=== PATIENT | female | born 1975 | race Caucasian/White ===

== ENCOUNTER 2016-07-20 10:30 | Inpatient (IN) | payer OTHER ==
[~2016-07-20] VITALS: Ht 152.4 cm; Wt 67.4 kg
[~2016-07-20 10:30] MED LIST: BUPR-83 PO; LRT5 PO
[2016-07-20 10:58] LABS: HEMATOCRIT 40.9 % (37-47); MEAN CELL VOLUME 91.1 fL (80-100); MEAN CORPUSCULAR HEMOGLOBIN 31.4 pg (25-34); MEAN CORPUSCULAR HGB CONC 34.5 g/dl (32-36); MEAN PLATELET VOLUME 11.7 fL (7.4-10.4); PLATELET COUNT 180 K/uL (130-400); RED BLOOD COUNT 4.49 M/uL (4.2-5.4); WHITE BLOOD COUNT 13.98 K/uL (4.8-10.8)
[2016-07-20 11:13] LABS: PARTIAL THROMBOPLASTIN RATIO 0.9; PROTHROMBIN TIME (PATIENT) 10.7 SECONDS (9.0-12.0)
--- NOTE | 2016-07-20 11:15 | DIAGNOSTIC IMAGING REPORT ---
CHEST ONE VIEW PORTABLE CLINICAL HISTORY: Shoulder pain radiates to neck dyspnea COMPARISON STUDY: No previous studies for comparison. FINDINGS: The bones soft tissues and hemidiaphragms are normal. The cardiomediastinal silhouette is normal. The lungs are clear. The pulmonary vasculature is normal. IMPRESSION: Negative chest. Electronically signed by: Ez Dillard M.D. 07/20/2016 11:14 AM Dictated Date/Time: 07/20/2016 11:10 AM
[2016-07-20 11:23] LABS: BUN/CREATININE RATIO 18.1 (10-20); CALCIUM 8.7 mg/dl (8.5-10.1); CREATININE 0.63 mg/dl (0.60-1.20); POTASSIUM 3.7 mmol/L (3.5-5.1)
[2016-07-20] MEDS ORDERED: MULTTAB58 PO (11:23)
[2016-07-20] MEDS ORDERED: IBUP1CAP9 PO (11:23)
[2016-07-20] MEDS ORDERED: ALPR-411 PO (11:23)
[2016-07-20 11:33] LABS: ALB/GLOB RATIO 1.4 (0.9-2); CKMB/CK RATIO 6.8 (0-3.0)
[2016-07-20] MEDS ORDERED: ASPIRIN 81 MG CHEW PO STA (12:06)
--- NOTE | 2016-07-20 12:13 | EMERGENCY ROOM VISIT NOTE ---
History Report prepared by Jose: Sneha Adair Under the Supervision of: Dr. Becca Boss, D.O. First contact with patient: 11:59 Chief Complaint: SHOULDER PAIN Stated Complaint: LF SHOULDER PAIN History of Present Illness The patient is a 41 year old female who presents to the Emergency Room with complaints of resolved left shoulder pain that began this morning. She currently rates her discomfort as a 2/10 in severity. The patient states that she was at work today walking around when she developed sharp left shoulder pain that radiated down her left arm into her hand and up into her left neck and left jaw. She states that she became very hot, diaphoretic, and nauseous. The patient denies any vomiting. She states that she rested for awhile after the symptoms began, but denies any relief. The patient denies any increased pain with breathing. She denies any other modifying factors. The patient denies taking anything for her discomfort. She notes slight shortness of breath , but attributes that to her anxiety. The patient states that her left arm was shaking and had difficulty raising it during the episode of pain. She notes a family history of heart disease, noting that her grandma had an CO at 75. The patient denies any personal history of hypertension, heart disease, or diabetes. The patient denies any control use. She states that she is an occasional smoker. The patient states that she shoveled snow yesterday. She notes that she recently had a long travel by car. Source of History: patient Onset: this morning Position: shoulder (left) Symptom Intensity: 2/10 Quality: sharp Timing: resolved Associated Symptoms: + SOB, + diaphoresis, + nausea, No vomiting Review of Systems See HPI for pertinent positives & negatives. A total of 10 systems reviewed and were otherwise negative. Past Medical & Surgical Medical Problems: (1) Chest pain Surgical Problems: (1) S/P cholecystectomy Family History Gallbladder disease Heart disease Social History Smoking Status: Current Some Day Smoker Alcohol Use: occasionally Marital Status: Housing Status: lives with family Occupation Status: employed Current/Historical Medications Scheduled Multiple Vitamin (Multivitamin), 1 TAB PO DAILY Scheduled PRN Alprazolam (Xanax), 1 MG PO DAILY PRN for Anxiety Ibuprofen (Ibuprofen), 3 TAB PO Q8H PRN for Pain Allergies Coded Allergies: No Known Allergies (Unverified , 07/20/16) Physical Exam Vital Signs Date Time Temp Pulse Resp B/P Pulse Ox O2 Delivery O2 Flow Rate FiO2 07/20/16 13:21 96 07/20/16 13:07 76 18 147/89 97 Room Air 07/20/16 10:38 98 Room Air 07/20/16 10:34 36.8 75 18 170/105 100 Room Air Physical Exam GENERAL: The patient is a pleasant, mildly anxious 41 year old female no acute distress. VITALS: Afebrile, hypertensive, normal pulse oximetry on room air. THROAT: No pharyngeal injection, exudates, or tonsillar hypertrophy. Airway is patent. NECK: Supple, nontender, no lymphadenopathy or nuchal rigidity. THORAX : Symmetrical and nontender to palpation without deformity or palpable crepitus. LUNGS : Clear without wheezing, rhonchi, or rales HEART: Regular rate and rhythm without murmur, S3, S4, or rub. ABDOMEN: Soft and nontender without guarding, rigidity, or rebound tenderness. Bowel sounds are present in all 4 quadrants. There are no palpable masses or organomegaly. No CVA tenderness. Femoral pulses are symmetrical EXTREMITIES : Without deformity or point tenderness. There are no palpable cords, edema, or erythema.. NEUROLOGIC: Intact without focal deficits Medical Decision & Procedures ER Provider Diagnostic Interpretation: X-ray results as stated below per interpretation by me and the radiologist: CHEST ONE VIEW PORTABLE CLINICAL HISTORY: Shoulder pain radiates to neck dyspnea COMPARISON STUDY: No previous studies for comparison. FINDINGS: The bones soft tissues and hemidiaphragms are normal. The cardiomediastinal silhouette is normal. The lungs are clear. The pulmonary vasculature is normal. IMPRESSION: Negative chest. Electronically signed by: Ez Dillard M.D. 07/20/2016 11:14 AM Dictated Date/Time: 07/20/2016 11:10 AM Laboratory Results 07/20/16 10:50 07/20/16 10:50 Test 07/20/16 10:50 07/20/16 13:47 Red Blood Count 4.49 M/uL (4.2-5.4) Mean Corpuscular Volume 91.1 fL (80-100) Mean Corpuscular Hemoglobin 31.4 pg (25-34) Mean Corpuscular Hemoglobin Concent 34.5 g/dl (32-36) RDW Standard Deviation 44.1 fL (36.4-46.3) RDW Coefficient of Variation 13.2 % (11.5-14.5) Mean Platelet Volume 11.7 fL (7.4-10.4) Prothrombin Time 10.7 SECONDS (9.0-12.0) Prothromb Time International Ratio 1.0 (0.9-1.1) D-Dimer < 190 ug/L FEU (0-500) Anion Gap 7.0 mmol/L (3-11) Est Creatinine Clear Calc Drug Dose 99.6 ml/min Estimated GFR () 129.1 Estimated GFR (Non- 111.4 BUN/Creatinine Ratio 18.1 (10-20) Calcium Level 8.7 mg/dl (8.5-10.1) Total Bilirubin 0.2 mg/dl (0.2-1) Aspartate Amino Transf (AST/SGOT) 27 U/L (15-37) Alanine Aminotransferase (ALT/SGPT) 29 U/L (12-78) Alkaline Phosphatase 56 U/L (45-117) Total Creatine Kinase 143 U/L (26-192) Total Protein 7.1 gm/dl (6.4-8.2) Albumin 4.1 gm/dl (3.4-5.0) Globulin 3.0 gm/dl (2.5-4.0) Albumin/Globulin Ratio 1.4 (0.9-2) Creatine Kinase MB Ratio (0-3.0) Laboratory studies as stated above per my review. Medications Administered Medications (Trade) Dose Ordered Sig/Sneha Route Start Time Stop Time Status Last Admin Dose Admin Aspirin (Aspirin Chew) 324 mg NOW STAT PO 07/20/16 12:06 07/20/16 12:07 DC 07/20/16 12:18 324 MG Nitroglycerin (Nitroglycerin 2% Oint) 1 inch NOW STAT EXT 07/20/16 12:35 07/20/16 12:36 DC 07/20/16 13:07 1 INCH ECG Indication: back/shoulder pain Rate (beats per minute): 77 Rhythm: normal sinus Findings: no ectopy, other (no acute ST T wave changes, no arrhythmia) ED Course 1201: Past medical records reviewed. The patient was evaluated in room B4B. A complete history and physical examination was performed. On examination she was asymptomatic. Her symptoms however somewhat concerning for acute coronary syndrome. She was medicated with 4 baby aspirin. She was maintained on telemetry and hemodynamic monitoring. Her hypertension improved She underwent the above diagnostic workup. Portable chest x-ray did not show any acute findings. No evidence of pneumonia or pneumothorax. CBC shows a mild leukocytosis with a white count of 13.9. Chem profile is within normal limits. Her total CK enzyme is 143 with a normal MB, troponin however is elevated to 0.866 suggestive of ischemia. PT and PTT are normal. D-dimer is less than 190 and not suggestive of pulmonary embolus. After reviewing her laboratory studies an inch of Nitropaste was placed. This is a 31-year-old woman who presents after an hour-long episode of left arm , and neck pain somewhat suggestive of acute coronary syndrome. Her troponin is elevated suggestive of ischemia. In light of this the patient is being admitted. I discussed her care with Dr. Munoz. I refer you to her dictation for further treatment plan. Patient and her are comfortable with this treatment plan. 1206: Ordered Aspirin 324 mg PO. 1235: Ordered Nitroglycerin 1 inch EXT. 1232: I reevaluated the patient and she is resting comfortably. I discussed the exam findings with her and I discussed the treatment plan. She verbalized complete understanding and agreement. She will be evaluated for further treatment. 1238: I discussed the patients case with TIM Davis. She is going to evaluate the patient for further treatment. 1303: I reevaluated the patient and she is resting comfortably. I discussed the lab findings with her. Medical Decision EMR, nurse's notes, diagnostic studies personally reviewed Differential diagnosis-see above The chart was completed utilizing [employer] Speech Voice Recognition Software. Grammatical errors, random word insertions, pronoun errors, and incomplete sentences are an occasional consequence of this system due to software limitations, ambient noise, and hardware issues. Any formal questions or concerns about the content, text, or information contained within the body of this dictation should be directly addressed to the physician for clarification. Consults Time Called: 1233 Consulting Physician: TIM Davis Returned Call: 1238 I discussed the patients case with TIM Davis. She is going to evaluate the patient for further treatment. Impression Primary Impression: Acute coronary syndrome Scribe Attestation The scribe's documentation has been prepared under my direction and personally reviewed by me in its entirety. I confirm that the note above accurately reflects all work, treatment, procedures, and medical decision making performed by me. Departure Information Dispostion Being Evaluated By Hospitalist Referrals Leonel Morgan M.D. (PCP)
[2016-07-20] MEDS ORDERED: NITROGLYCERIN OINT 2% 1GM PACKET EXT STA (12:35)
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
[2016-07-20] MEDS ORDERED: NITROGLYCERIN 0.4 MG SL PER TAB CHARGE SL PRN (14:00)
[2016-07-20] MEDS: ALPRAZOLAM 0.5 MG TAB PO PRN (15:27)
[2016-07-20 16:05] VITALS: BP 135/93; PULSE 79; TEMP 36.8; Ht 152.4 cm; Wt 67.4 kg
[2016-07-20] MEDS ORDERED: ENOXAPARIN 30 MG/0.3 ML SYR SQ ONE (17:15)
[2016-07-20] MEDS: ACETAMINOPHEN 325 MG TAB PO PRN (19:16)
[2016-07-20] MEDS ORDERED: HEPARIN IV BOLUS 4,000 UNIT in SYRINGE 0 ML IV ONE (19:30)
[2016-07-20] MEDS ORDERED: HEPARIN 25,000 UNIT/500ML D5W 500 ML IV PRN (19:30)
[2016-07-20 19:34] VITALS: BP 157/96; PULSE 82; TEMP 36.8; O2SAT 98
[2016-07-20] MEDS: MoRPHine SULFATE 2 MG/ML CARP IV PRN (21:59)
[2016-07-21] VITALS (12 sets, daily range): BP systolic 124–159; BP diastolic 72–107; PULSE 66–95; TEMP 36.4–36.9; O2SAT 95–98
[2016-07-21 02:54] LABS: PARTIAL THROMBOPLASTIN RATIO 1.8
[2016-07-21] MEDS: MoRPHine SULFATE 2 MG/ML CARP IV PRN ×2 (02:58→09:04)
[2016-07-21 08:18] LABS: PARTIAL THROMBOPLASTIN RATIO 1.7
[2016-07-21] MEDS: ASPIRIN 81 MG ECTAB PO SCH ×2 (09:02→09:52)
--- NOTE | 2016-07-21 09:03 | Progress Note ---
Subjective Date of Service: Jul 21, 2016. Subjective Pt evaluation today including: conversation w/ patient, conversation w/ family , physical exam, lab review, review of studies, review of inpatient medication list Patient still c/o left shoulder discomfort, better than yesterday but still persistent. Not related to any particular position. No sob, no diaphoresis, no nausea. Tolerated food last night. Problem List Medical Problems: (1) Acute coronary syndrome Status: Acute Review of Systems All Other Systems: Reviewed and Negative Medications Acetaminophen 650 mg 650 mg Q4H PRN PO Last administered on 07/20/16 19:16; Admin Dose 650 MG; Start 07/20/16 at 18:45; Stop 08/19/16 at 18:44 Alprazolam (Xanax Tab) 1 mg DAILY PRN PO Last administered on 07/20/16 15:27; Admin Dose 1 MG; Start 07/20/16 at 14:00; Stop 08/19/16 at 13:59 Aspirin (Ecotrin Tab) 81 mg QAM PO Last administered on 07/21/16 09:02; Admin Dose 81 MG; Start 07/21/16 at 09:00; Stop 08/20/16 at 08:59 Heparin Sodium/ Dextrose (Heparin 25,000 Unit/500ml D5W) 500 ml @ 19 mls/hr Q24H PRN IV Last administered on 07/20/16 19:54; Admin Dose 19 MLS/HR; Start at 19:30; Stop 08/19/16 at 19:29 Morphine Sulfate (MoRPHine SULFATE INJ) 2 mg Q4 PRN IV Last administered on 09:04; Admin Dose 2 MG; Start 07/20/16 at 14:00; Stop 08/03/16 at 13:59 Nitroglycerin (Nitrostat Tab) 0.4 mg UD PRN SL; Start 07/20/16 at 14:00; Stop 08/19/16 at 13:59 Objective Vital Signs Date Time Temp Pulse Resp B/P Pulse Ox O2 Delivery O2 Flow Rate FiO2 07/21/16 08:44 Room Air 07/21/16 07:53 36.8 81 18 142/94 96 Room Air 07/21/16 04:24 36.8 82 18 131/72 95 Room Air 07/21/16 04:00 Room Air 07/21/16 00:11 36.8 80 18 131/74 96 Room Air 07/20/16 23:59 Room Air 07/20/16 20:00 Room Air 07/20/16 19:34 36.8 82 18 157/96 98 Room Air 07/20/16 17:10 88 18 144/97 98 07/20/16 16:05 36.8 79 18 135/93 Room Air 07/20/16 15:28 78 18 147/100 97 Room Air 07/20/16 13:21 96 07/20/16 13:07 76 18 147/89 97 Room Air 07/20/16 10:38 98 Room Air 07/20/16 10:34 36.8 75 18 170/105 100 Room Air Physical Exam Comments: nad, aox3, coherent and fluent speech eomi, perrl, anicteric s1 s2 rrr, no murmurs appreciated ctab no w/r/r abd soft , nt/nd +BS no cva tend no LE edema cn 2-12 grossly intact without facial drooping Laboratory Results Last 24 Hours Test 07/20/16 10:50 07/20/16 13:47 07/20/16 15:01 07/20/16 17:45 White Blood Count 13.98 K/uL Red Blood Count 4.49 M/uL Hemoglobin 14.1 g/dL Hematocrit 40.9 % Mean Corpuscular Volume 91.1 fL Mean Corpuscular Hemoglobin 31.4 pg Mean Corpuscular Hemoglobin Concent 34.5 g/dl RDW Standard Deviation 44.1 fL RDW Coefficient of Variation 13.2 % Platelet Count 180 K/uL Mean Platelet Volume 11.7 fL Prothrombin Time 10.7 SECONDS Prothromb Time International Ratio 1.0 Activated Partial Thromboplast Time 24.3 SECONDS Partial Thromboplastin Ratio 0.9 D-Dimer < 190 ug/L FEU Sodium Level 140 mmol/L Potassium Level 3.7 mmol/L Chloride Level 107 mmol/L Carbon Dioxide Level 26 mmol/L Anion Gap 7.0 mmol/L Blood Urea Nitrogen 11 mg/dl Creatinine 0.63 mg/dl Est Creatinine Clear Calc Drug Dose 99.6 ml/min Estimated GFR () 129.1 Estimated GFR (Non- 111.4 BUN/Creatinine Ratio 18.1 Random Glucose 101 mg/dl Calcium Level 8.7 mg/dl Total Bilirubin 0.2 mg/dl Aspartate Amino Transf (AST/SGOT) 27 U/L Alanine Aminotransferase (ALT/SGPT) 29 U/L Alkaline Phosphatase 56 U/L Total Creatine Kinase 143 U/L Creatine Kinase MB 9.7 ng/ml 36.7 ng/ml Creatine Kinase MB Ratio 6.8 Troponin I 0.866 ng/ml 7.220 ng/ml Total Protein 7.1 gm/dl Albumin 4.1 gm/dl Globulin 3.0 gm/dl Albumin/Globulin Ratio 1.4 Test 07/20/16 19:21 07/21/16 02:14 07/21/16 07:53 Activated Partial Thromboplast Time 26.5 SECONDS 47.4 SECONDS 43.9 SECONDS Partial Thromboplastin Ratio 1.0 1.8 1.7 Troponin I 5.760 ng/ml Assessment and Plan 1. NSTEMI - troponin did peak at 7.2, now down to 5 - she remains on heparin gtt - cardio will bring her to laboratory tech this morning - she remains npo - echo pending - will check UDS for completeness, though she denies any h/o illicit substance use - check tsh and a1c as well to screen - lipid panel pending 2. Elevated BP - now improved - may have been stress related - will continue to monitor - if persistently >140-150, will treat 3. Smoking - cessation strongly advised - verbalized understanding 4. dvt ppx with lovenox
[2016-07-21 09:19] LABS: CHOLESTEROL/HDL RATIO 3.1
[2016-07-21] MEDS ORDERED: ENOXAPARIN 30 MG/0.3 ML SYR SQ SCH (11:00)
[2016-07-21] MEDS ORDERED: NiCARDipine HCL INJ 2.5 MG/ML 10 ML AMP ONE (11:45)
[2016-07-21] MEDS ORDERED: HEPARIN SOD (PORCINE) 1000 UNIT/ML 10 ML VIAL ONE (11:46)
[2016-07-21] MEDS ORDERED: NITROGLYCERIN/D5W 100MCG/ML 20ML SYR ONE (11:47)
[2016-07-21] MEDS ORDERED: FENTANYL CITRATE INJ 50 MCG/1 ML 2 ML VIAL ONE (11:48)
[2016-07-21] MEDS ORDERED: MIDAZOLAM HCL 1 MG/ML 2ML VIAL ONE (11:48)
[2016-07-21 12:43] LABS: BENZODIAZEPINE, URINE POS (NEG); COCAINE,URINE NEG (NEG); PHENCYCLIDINE, URINE NEG (NEG)
[2016-07-21] MEDS ORDERED: CLOPIDOGREL BISULFATE 300 MG TAB PO ONE (12:47)
--- NOTE | 2016-07-21 12:55 | Procedure Note ---
Pre-Mod Sedation Assessment General Date of Moderate Sedation: Jul 21, 2016. Vital Signs: Vital Signs Past 12 Hours Date Time Temp Pulse Resp B/P Pulse Ox O2 Delivery O2 Flow Rate FiO2 07/21/16 12:46 80 18 118/82 95 Room Air 07/21/16 12:31 80 18 124/91 95 Room Air 07/21/16 11:28 36.8 78 20 139/98 96 Room Air 07/21/16 08:44 Room Air 07/21/16 07:53 36.8 81 18 142/94 96 Room Air 07/21/16 04:24 36.8 82 18 131/72 95 Room Air 07/21/16 04:00 Room Air Review Cardiovascular: regular rate, rhythm, no edema Abdomen: normal bowel sounds, non tender, soft Lungs: lungs clear, normal breath sounds Pre-Sedation Airway Assessment Oral Cavity: WNL Able to Visualize Vocal Cords: Yes Short Thick Neck: No Hx of Sleep Apnea: No Smoking Status: Current Every Day Smoker Mallampati Classification: Class II ASA Classification: Class II Procedure Planning Contraindications-for Mod Sed: None Yes Notes The planned sedation has been discussed with the patient and consent obtained. I have identified the patient, determined the appropriateness of sedation and have assessed the patient immediately prior to the procedure. All medicine(s) and interventions are by my order.
--- NOTE | 2016-07-21 12:56 | Procedure Note ---
Post-Mod Sedation Assessment General Date of Moderate Sedation Jul 21, 2016. Vital Signs: Vital Signs Past 12 Hours Date Time Temp Pulse Resp B/P Pulse Ox O2 Delivery O2 Flow Rate FiO2 07/21/16 12:46 80 18 118/82 95 Room Air 07/21/16 12:31 80 18 124/91 95 Room Air 07/21/16 11:28 36.8 78 20 139/98 96 Room Air 07/21/16 08:44 Room Air 07/21/16 07:53 36.8 81 18 142/94 96 Room Air 07/21/16 04:24 36.8 82 18 131/72 95 Room Air 07/21/16 04:00 Room Air Review - Discharge Criteria Vital Signs Stable: Yes Alert/Oriented/Conversant: Yes Returned to Baseline Mental St: Yes Nausea Absent/Minimal: Yes Pain/Discomfort/Absent/Minimal: Yes Normal/Baseline Respirations: Yes Active Bleeding?: No Pt Received D/C Instructions: N/A Prescriptions Given: None Specific Proced. D/C Criteria Distal Pulses Present (Cardiac: Yes Groin site assessed-Card Cath: N/A Voided Prior To Discharge: N/A Discharged Patients Adult Escort/Transportation: Yes
[2016-07-21] MEDS ORDERED: ACETAMINOPHEN 325 MG TAB PO PRN (13:00)
[2016-07-21] MEDS: SODIUM CHLORIDE 0.9% 1000ML 1,000 ML IV SCH ×2 (13:39→22:52)
--- NOTE | 2016-07-21 14:56 | ECHOCARDIOGRAM REPORT ---
*NOTICE TO RECEIVING CONSTITUTION PARTY AGENCY This information is strictly Confidential and protected under [place] law. [place] law prohibits you from making any further disclosure of this information unless further disclosure is expressly permitted by the written consent of the person to whom it pertains or is authorized by law. A general authorization for the release of medical or other information is not sufficient for this purpose. Hospital accepts no responsibility if the information is made available to any other person, INCLUDING THE PATIENT. Interpretation Summary * Name: DENNY HANDLEY Study Date: 07/21/2016 06:27 AM BP: 142/94 mmHg * Patient Location: C.2E\S\E202\S\1 HR: 74 * : 1975 (M/d/yyyy) Gender: Female Height: 60 in * Age: 41 yrs Ethnicity: CA Weight: 145 lb * Ordering Physician: Lynn Peña * Referring Physician: Self, Referred * Performed By: Judi Beatty [facility] * * Reason For Study: ELEVATED TROPONIN / CHEST PAIN / SHOULDER PAIN * BSA: 1.6 m2 * -- Conclusions -- * There is borderline concentric left ventricular hypertrophy. * Left ventricular systolic function is normal. * There are regional wall motion abnormalities as specified. * Mild aortic root dilatation. Procedure Details * A complete two-dimensional transthoracic echocardiogram was performed (2D, M-mode, Doppler and color flow Doppler). Left Ventricle * The left ventricle is normal in size. * There is borderline concentric left ventricular hypertrophy. * Ejection Fraction = 55-60%. * Left ventricular systolic function is normal. * There are regional wall motion abnormalities as specified. * Portions of the apex are moderately hypokinetic Right Ventricle * The right ventricle is normal in size and function. Atria * The left atrial size is normal. * Right atrial size is normal. Mitral Valve * The mitral valve anatomy is normal. * There is trace mitral regurgitation. Tricuspid Valve * The tricuspid valve is not well visualized, but is grossly normal. * There is trace tricuspid regurgitation. Aortic Valve * The aortic valve is normal in structure and function. * No hemodynamically significant valvular aortic stenosis. * There is no significant aortic regurgitation. Great Vessels * Mild aortic root dilatation. Pericardium/Pleural * There is no pericardial effusion. MMode 2D Measurements and Calculations IVSd 1.3 cm IVSs 1.5 cm LVIDd 4.6 cm LVIDs 3.1 cm LVPWd 1.2 cm LVPWs 1.6 cm IVS/LVPW 1.1 FS 32.6 % EDV(Teich) 97.6 ml ESV(Teich) 38.0 ml EF(Teich) 61.0 % EDV(cubed) 97.6 ml ESV(cubed) 29.9 ml EF(cubed) 69.4 % % IVS thick 18.8 % % LVPW thick 34.1 % LV mass(C)d 210.8 grams LV mass(C)dI 129.5 grams/m\S\2 LV mass(C)s 172.8 grams LV mass(C)sI 106.1 grams/m\S\2 SV(Teich) 59.5 ml SI(Teich) 36.6 ml/m\S\2 SV(cubed) 67.7 ml SI(cubed) 41.6 ml/m\S\2 Ao root diam 4.3 cm Ao root area 14.5 cm\S\2 LA dimension 2.0 cm LA/Ao 0.47 LVOT diam 2.0 cm LVOT area 3.0 cm\S\2 LVAd ap4 30.6 cm\S\2 LVLd ap4 7.7 cm EDV(MOD-sp4) 98.0 ml EDV(sp4-el) 103.5 ml LVAs ap4 19.2 cm\S\2 LVLs ap4 6.6 cm ESV(MOD-sp4) 46.6 ml ESV(sp4-el) 47.5 ml EF(MOD-sp4) 52.5 % EF(sp4-el) 54.1 % LVAd ap2 30.4 cm\S\2 LVLd ap2 7.7 cm EDV(MOD-sp2) 95.7 ml EDV(sp2-el) 101.7 ml LVAs ap2 16.8 cm\S\2 LVLs ap2 6.2 cm ESV(MOD-sp2) 36.9 ml ESV(sp2-el) 38.7 ml EF(MOD-sp2) 61.5 % EF(sp2-el) 61.9 % LVLd %diff 0.62 % EDV(MOD-bp) 97.4 ml LVLs %diff -6.54 % ESV(MOD-bp) 42.1 ml EF(MOD-bp) 56.8 % SV(MOD-sp4) 51.5 ml SI(MOD-sp4) 31.6 ml/m\S\2 SV(MOD-sp2) 58.9 ml SI(MOD-sp2) 36.2 ml/m\S\2 SV(MOD-bp) 55.3 ml SI(MOD-bp) 34.0 ml/m\S\2 SV(sp4-el) 56.0 ml SI(sp4-el) 34.4 ml/m\S\2 SV(sp2-el) 63.0 ml SI(sp2-el) 38.7 ml/m\S\2 Doppler Measurements and Calculations MV P1/2t max sarah 86.9 cm/sec MV P1/2t 57.2 msec MVA(P1/2t) 3.8 cm\S\2 MV dec slope 445.1 cm/sec\S\2 MV dec time 0.18 sec Ao V2 max 117.4 cm/sec Ao max PG 5.5 mmHg Ao max PG (full) 2.5 mmHg KEEGAN(V,A) 2.2 cm\S\2 KEEGAN(V,D) 2.2 cm\S\2 LV V1 max PG 3.0 mmHg LV V1 max 87.3 cm/sec
[2016-07-21] MEDS: ALPRAZOLAM 0.5 MG TAB PO PRN (16:13)
--- NOTE | 2016-07-21 17:57 | Cardiac Catheterization ---
Procedure Note Procedure Date Jul 21, 2016. Pre-Procedure Diagnosis Non STEMI AUC Score 8 Post-Procedure Diagnosis Moderate CAD Procedure(s) Performed Coronary Angiography, Left Heart Cath Catalogue Maker Dr. Wagner Supervisor Special Education(s) Helen Estimated Blood Loss 20 Medication(s) Fentanyl, Heparin, Nitroglycerin, Versed, Lidocaine 1% Summary of Findings Indication: NSTEMI Access: 6Fr Slender Right Ulnar artery via ultrasound guidance Catheters: [place], Pigtail Findings: LM - Angiographically normal LAD - Angiographically normal until mid segment after 2nd diagonal take-off, then 40-50% long, smooth narrowing to apex. JULIA 3 flow. No significant change with vasodilators. Circumflex - Angiographically normal RCA - Dominant, angiographically normal LVEDP - 14 LVEF - 55-60%, true apex is severely hypokinetic Arterial Closure: TR Band Summary: 1. 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 Long diffuse narrowing in the absence of any suggestion of atherosclerosis consistent with SCAD (type II) with residual intramural hematoma. Coronary vasospasm, stress-induced cardiomyopathy less likely. 2. Normal overall systolic function with apical akinesis. Recommendations: Patient chest pain free, TIMI3 flow, recommend medical management Return to PCU for continued observation Continue heparin infusion overnight. 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 Continue DAPT with ASA/plavix for 1 year Start beta-sadia/MORELIA High-dose statin Smoking cessation Cardiac Rehab Consider evaluation further evaluation fibromuscular dysplasia. Hemodynamics Rest Ao: 138/94/114 Final Ao: 144/91/115 LV: 149/14 Recommendations Medical therapy and/or Counseling Specimens None Radiation Exposure (mGy) 755 Contrast (mls) 120 Visi Fluids (cc crystalloids) 50 Drains none Anesthesia moderate Procedural Complication(s) None Disposition PCU ACC Data Cardiac Status Clinical evaluation leading to the procedure CAD Presntation: Non STEMI Anginal Classification: CCS IV Heart Failure: No, NYHA Class: CCS I Cardiogenic Shock w/in 24Hrs: No Cardiac Arrest w/in 24Hrs: No Imaging studies past 6 months: Yes Stress studies past 6 months: No Standard Exercise Stress Test: No Stress Echocardiogram: No Stress Testing w/SPECT MPI: Yes - Negative Cardiac CTA: No Coronary Anatomy Dominant: Right Left Main (% Stenosis): Normal LAD (% Stenosis): Mid (40-50% diffuse narrowing), Distal (40-50% diffuse narrowing) D1 (% Stenosis): Normal D2 (% Stenosis): Normal Circumflex (% Stenosis): Normal RCA (% Stenosis): Normal R PDA (% Stenosis): Normal Left Ventricular Angiography EF (%): 55-60 Wall Motion: Apical (Hypokinetic) Mitral Regurgitation: 1+ Diagnostic Physician's Name: Ashok Wagner MD Closure Device Percutaneous Entry Location: Radial Closure Device: Radial Band Recommendations: Medical therapy and/or Counseling Intraprocedure Events Significant Dissection: No Perforation: No
--- NOTE | 2016-07-21 19:09 | CARDIOLOGY CONSULTATION ---
DATE OF CONSULTATION: 07/21/2016 DATE OF CONSULTATION: 07/21/2016. CONSULTATION REQUESTED BY: Dr. Peña. REASON FOR CONSULTATION: NSTEMI. HISTORY OF PRESENT ILLNESS: Ms. Matthews is a 41-year-old female without significant past medical history who was admitted yesterday in the setting of severe left shoulder, left arm pain associated with nausea and diaphoresis. The pain began initially while she was at rest at work and persisted almost constantly overnight and into this morning. It was improved with nitrates and morphine and at time of interview the patient is largely chest pain free. She had initial troponin on presentation of 0.87, which subsequently trended up to 7.2 and has now trended down to 5.7. Her initial EKG was unremarkable; however subsequent EKG this morning did show anterior, lateral T-wave abnormality consistent with possible ischemia. The patient has no prior cardiac history. She has no significant cardiac risk factors other than ongoing tobacco use. PAST MEDICAL HISTORY: Prior issues with ongoing tennis elbow, complications following phlebotomy a year ago. FAMILY HISTORY: Paternal grandfather with premature coronary artery disease. Grandmother with valvular heart disease. No first degree relatives with significant CAD or premature sudden cardiac . SOCIAL HISTORY: She works at the [employer], has 2 children. Smokes approximately half a pack per day. Denies significant alcohol or illicit drugs. HOME MEDICATIONS: Multivitamin, p.r.n. Xanax, p.r.n. ibuprofen. ALLERGIES: No known drug allergies. REVIEW OF SYSTEMS: Ten point review of systems was completed and otherwise negative unless listed in HPI. PHYSICAL EXAMINATION: VITAL SIGNS: Temperature 36.8, pulse 93, blood pressure 133/85. She is satting 97% on room air. GENERAL: The patient appears comfortable in no acute distress. HEAD, EYES, EARS, NOSE, AND THROAT: Sclerae are anicteric. Oropharynx clear. Mucous membranes are moist. NECK: Supple with no lymphadenopathy. LUNGS: Clear to auscultation bilaterally. HEART: Regular rate and rhythm with no murmurs, rubs or gallops. ABDOMEN: Soft, nontender, nondistended with positive bowel sounds. EXTREMITIES: Warm. She has no significant lower extremity edema. She has intact distal pulses throughout including 1+ right radial pulse. LABORATORY DATA: WBC 13.9, hemoglobin 14.1, platelets of 180. INR of 0.9 on admission. D-dimer was negative at less than 190. Sodium 140, potassium 3.7, BUN 11, creatinine 0.6. LFTs within normal limits. Total cholesterol 135. Triglycerides of 135. HDL of 43. LDL of 65. Chest x-ray showed no acute cardiopulmonary process. EKG as discussed above. Telemetry sinus rhythm, no significant arrhythmias. Echocardiogram shows preserved LV function with apical hypokinesis. No significant valvular abnormalities. Cardiac catheterization showed angiographically normal RCA, left main and circumflex, proximal LAD is also angiographically normal, in the mid LAD after second diagonal there is a diffuse along 40-50% narrowing which continues all the way to the apex. There is JULIA 3 flow. No evidence of significant atherosclerotic plaque throughout this artery. No change with IC vasodilators. LV gram showed normal LVEDP and normal overall LV function with an EF of 55% but severe apical hypokinesis. IMPRESSION AND PLAN: 1. [id number]-MO-[id number] elevation myocardial infarction. 2. 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 3. Preserved left ventricular function with severe apical hypokinesis. 4. Ongoing tobacco use. In the setting of NSTEMI with troponin to [address] changes on ECG, the patient was taken for diagnostic angiography. Cardiac catheterization revealed diffuse long narrowing of the mid to distal LAD. There is no evidence of any atherosclerotic plaque throughout her coronary system and she has minimal risk factors. I feel the current presentation is most consistent with a spontaneous coronary artery dissection. Less likely on the differential includes coronary vasospasm or moderate disease with stress-induced cardiomyopathy, although does not appear to be consistent with atherosclerotic plaque. As patient is chest pain free with JULIA 3 flow throughout her LAD would treat this conservatively with medical management. Would treat as an NSTEMI and will plan to continue heparin infusion overnight. 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 The patient to be started on beta sadia, MORELIA inhibitor, and statin. Strongly encouraged smoking cessation and will discuss cardiac rehab at a later date. Spontaneous coronary artery dissections are often associated with fibromuscular dysplasia and would check a renal ultrasound to evaluate for signs of FMD. Otherwise, continue to monitor on telemetry. Cardiology to continue to follow while in the hospital. Thank you for allowing us to participate in the care of this patient. Please contact with any questions. RICHARD
[2016-07-21] MEDS: METOPROLOL TARTRATE 25 MG TAB PO SCH (20:29)
[2016-07-21] MEDS: ACETAMINOPHEN 325 MG TAB PO PRN (20:37)
[2016-07-21] MEDS ORDERED: NURSING VERBAL MED ORDER ONE (21:00)
[2016-07-22 03:37] VITALS: BP 139/73; PULSE 88; TEMP 36.7; O2SAT 94
[2016-07-22 06:23] LABS: BASO % 0.2 %; BASO ABS # 0.02 K/uL (0-0.2); COMPLETE YES; HEMATOCRIT 39.9 % (37-47); IG% 0.5 %; LYMPH % 24.5 %; LYMPH ABS # 2.69 K/uL (1.2-3.4); MEAN CELL VOLUME 92.1 fL (80-100); MEAN CORPUSCULAR HEMOGLOBIN 30.7 pg (25-34); MEAN CORPUSCULAR HGB CONC 33.3 g/dl (32-36); MEAN PLATELET VOLUME 12.1 fL (7.4-10.4); MONO % 7.2 %; NEUT % 65.6 %; PLATELET COUNT 176 K/uL (130-400); RED BLOOD COUNT 4.33 M/uL (4.2-5.4)
[2016-07-22 06:33] LABS: PARTIAL THROMBOPLASTIN RATIO 1.1
[2016-07-22 06:51] LABS: CALCIUM 8.2 mg/dl (8.5-10.1); CREATININE 0.49 mg/dl (0.60-1.20); POTASSIUM 3.8 mmol/L (3.5-5.1)
[2016-07-22 07:02] LABS: ALB/GLOB RATIO 1.3 (0.9-2); THYROID STIMULATING HORMONE 0.899 uIu/ml (0.300-4.500)
[2016-07-22 07:05] VITALS: BP 122/68; PULSE 81; TEMP 36.7; O2SAT 96
[2016-07-22] MEDS ORDERED: LPT40 PO (07:37)
[2016-07-22] MEDS ORDERED: ASPEC81 PO (07:37)
[2016-07-22] MEDS ORDERED: PLV75 PO (07:37)
[2016-07-22] MEDS ORDERED: LSN5 PO (07:37)
[2016-07-22] MEDS ORDERED: LPR25 PO (07:37)
--- NOTE | 2016-07-22 07:39 | Discharge Instructions ---
Discharge Instructions Date of Service Jul 22, 2016. 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 Instructions / Follow-Up Instructions / Follow-Up Home Care: * Take your medications exactly as directed. Don't skip doses. * Remember that recovery after a heart attack takes time. Plan to rest for at lease 4-8 weeks while you recover. Then return to normal activity when your doctor says it's okay. * Ask your doctor about joining a heart rehabilitation program. * Tell your doctor if you are feeling depressed. Feelings of sadness are common after a heart attack, but it is important that you speak to someone if you are feeling overwhelmed by these feelings. * If you are having chest pain, call 911 for an ambulance. Do NOT drive yourself to the hospital. * Ask your family members to learn CPR. * Learn to take your own blood pressure and pulse. Keep a record of your results. Ask your doctor when you should seek emergency medical attention. He or she will tell you which blood pressure reading is dangerous. Lifestyle Changes: * Maintain a healthy weight. Get help to lose any extra pounds. * Cut back on salt. * Limit canned, dried, packaged, and fast foods. * Don't add salt to your food. * Season foods with herbs instead of salt when you cook. * Break the smoking habit. Enroll in a stop-smoking program to improve your chances of success. * Limit fatty foods. * Check your lipid levels regularly. (Your doctor can show you how to do this.) * Build up your activity according to your doctor's recommendation. * Ask your doctor when it's okay to resume sexual activity. * Tell your doctor about any erectile dysfunction (ED) medication you are taking. Some ED medications are not safe if you take certain heart medications. * Try to manage stress. Follow Up: It is important for you to keep your follow up appointments with your medical provider. Current Hospital Diet Patient's current hospital diet: AHA Diet (Heart Healthy) Discharge Diet Recommended Diet: AHA Diet (Heart Healthy) Pending Studies Studies pending at discharge: no Laboratory Results Hemoglobin A1c Test 07/22/16 05:37 Range/Units Lipid Panel Test 07/21/16 07:53 Range/Units Triglycerides Level 135 0-150 mg/dl Cholesterol Level 135 0-200 mg/dl HDL Cholesterol 43 mg/dl Cholesterol/HDL Ratio 3.1 LDL Cholesterol, Calculated 65 mg/dl Medical Emergencies . Who to Call and When: Medical Emergencies: If at any time you feel your situation is an emergency, please call 911 immediately. Call 911 immediately or go to your nearest Emergency Room if you experience any of the following: Warning Signs and Symptoms of a Heart Attack * Chest pain that is not relieved by medication * Shortness of breath . Non-Emergent Contact Non-Emergency issues call your: Primary Care Provider . . "Provider Documentation" section prepared by Lynn Peña. AMI Core Measures Reason no ASA as I/P: Treatment provided - N/A Reason no ASA at D/C: Treatment provided - N/A Reason no statin as I/P: Treatment provided - N/A Reason no statin at D/C: Treatment provided - N/A VTE Core Measure Inpt VTE Proph given/why not?: Unfractionated heparin SQ
[2016-07-22 08:00] VITALS: O2SAT 96
--- NOTE | 2016-07-22 08:14 | DIAGNOSTIC IMAGING REPORT ---
DOPPLER ULTRASOUND OF THE RENAL ARTERIES CLINICAL HISTORY: Atypical chest pain. Clinical concern for renal artery stenosis. COMPARISON STUDY: No priors. TECHNIQUE: Doppler sonography of the renal arteries was performed to assess renal artery stenosis. Images are reviewed in the transverse and longitudinal planes. FINDINGS: The kidneys appear normal in size and echotexture. The left kidney measures 12.9 cm in length and the right kidney measures 10.8 cm in length. There is no hydronephrosis. On the right, intrarenal arterial resistive indices range from 0.55 to 0.62. Intrarenal arterial waveforms are normal with brisk upstrokes. The right renal arterial waveform is normal, and velocities within the right renal artery measure up to 140 cm/sec. The right renal vein is patent. On the left, intrarenal arterial resistive indices range from 0.55 to 0.61. Intrarenal arterial waveforms are normal with brisk upstrokes. The left renal arterial waveform is normal, and velocities within the left renal artery measure up to 83 cm/sec. The left renal vein is patent. The abdominal aorta is patent. Velocities within the abdominal aorta measure up to 119 cm/s. IMPRESSION: There is no sonographic evidence of renal artery stenosis. Electronically signed by: Drake Cardona M.D. 07/22/2016 8:13 AM Dictated Date/Time: 07/22/2016 8:11 AM
[2016-07-22 08:26] LABS: ESTIMATED AVERAGE GLUCOSE 103 mg/dl; HA1C FLAG Normal (Normal)
[2016-07-22] MEDS: METOPROLOL TARTRATE 25 MG TAB PO SCH (08:27)
[2016-07-22] MEDS: SODIUM CHLORIDE 0.9% 1000ML 1,000 ML IV SCH (08:27)
[2016-07-22] MEDS: ALPRAZOLAM 0.5 MG TAB PO PRN (08:32)
[2016-07-22] MEDS: ACETAMINOPHEN 325 MG TAB PO PRN (08:32)
[2016-07-22] MEDS ORDERED: LISINOPRIL 5 MG TAB PO SCH (09:00)
[2016-07-22] MEDS ORDERED: CLOPIDOGREL BISULFATE 75 MG TAB PO SCH (09:00)
[2016-07-22] MEDS ORDERED: ATORVASTATIN 40 MG TAB PO SCH (09:00)
[2016-07-22] MEDS: ASPIRIN 81 MG ECTAB PO SCH (09:10)
--- NOTE | 2016-07-22 11:27 | Cardiology Follow-Up ---
Subjective Subjective Date of Service: Jul 22, 2016. Pt evaluation today including: conversation w/ patient, physical exam, chart review, lab review, review of studies, review of inpatient medication list Additional Details: Feeling well this AM. No recurrent chest pain. 'No shortness of breath. No events on telemetry Problem List Medical Problems: (1) Acute coronary syndrome Status: Acute Review of Systems Constitutional: No chills, No fever Respiratory: No shortness of breath Cardiac: No chest pain, No edema Abdomen: No nausea, No pain Female : No dysuria Heme: No abnormal bleeding/bruising Skin: No rash Objective Vital Signs Last Vital Signs Documentation Date Time Temp Pulse Resp B/P Pulse Ox O2 Delivery O2 Flow Rate FiO2 07/22/16 08:00 96 Room Air 07/22/16 07:05 36.7 81 16 122/68 Physical Exam: General Appearance: no apparent distress ENT: hearing grossly normal Neck: supple, thyroid normal Respiratory/Chest: lungs clear, normal breath sounds Cardiovascular: regular rate, rhythm, no edema, no murmur Abdomen: non tender, soft Extremities: no pedal edema, no calf tenderness Neurologic/Psychiatric: alert, normal mood/affect Skin: warm/dry, no rash Assessment and Plan 1. NSTEMI 2. Suspected SCAD 3. Preserved LV function with severe apical hypokinesis 4. Tobacco use. Hemodynamically, electrically stable and chest pain free overnight. Troponin peaked yesterday and LV function preserved. Mildly elevated velocities in right renal artery but no evidence of significant stenosis or FMD -- From a cardiac standpoint OK for discharge -- continue on ASA/plavix -- continue on statin -- continue on metoprolol, lisinopril -- discharge with SL NTG -- smoking cessation. -- Can follow-up with me in 3 weeks in cardiology clinic. Medications: Current Inpatient Medications Medications (Trade) Dose Ordered Sig/Sneha Route Start Time Stop Time Status Last Admin Dose Admin Nitroglycerin (Nitrostat Tab) 0.4 mg UD PRN SL 07/20/16 14:00 08/19/16 13:59 Aspirin (Ecotrin Tab) 81 mg QAM PO 07/21/16 09:00 08/20/16 08:59 07/22/16 09:10 81 MG Morphine Sulfate (MoRPHine SULFATE INJ) 2 mg Q4 PRN IV 07/20/16 14:00 08/03/16 13:59 07/21/16 09:04 2 MG Alprazolam (Xanax Tab) 1 mg DAILY PRN PO 07/20/16 14:00 08/19/16 13:59 07/22/16 08:32 1 MG Acetaminophen 650 mg 650 mg Q4H PRN PO 07/20/16 18:45 08/19/16 18:44 07/22/16 08:32 650 MG Sodium Chloride (Nss 1000ml) 1,000 ml @ 100 mls/hr Q10H IV 07/21/16 12:50 08/20/16 12:49 07/22/16 08:27 100 MLS/HR Atorvastatin Calcium (Lipitor Tab) 80 mg QAM PO 07/22/16 09:00 08/21/16 08:59 07/22/16 08:28 80 MG Metoprolol Tartrate (Lopressor Tab) 25 mg Q12 PO 07/21/16 21:00 08/20/16 20:59 07/22/16 08:27 25 MG Lisinopril (Zestril Tab) 5 mg QAM PO 07/22/16 09:00 08/21/16 08:59 07/22/16 08:28 5 MG Clopidogrel Bisulfate (plAVix TAB) 75 mg QAM PO 07/22/16 09:00 08/21/16 08:59 07/22/16 09:10 75 MG Lab Results: 07/22/16 05:37 Red Blood Count 4.33, Mean Corpuscular Volume 92.1, Mean Corpuscular Hemoglobin 30.7, Mean Corpuscular Hemoglobin Concent 33.3, Mean Platelet Volume 12.1, Neutrophils (%) (Auto) 65.6, Lymphocytes (%) (Auto) 24.5, Monocytes (%) (Auto) 7.2, Eosinophils (%) (Auto) 2.0, Basophils (%) (Auto) 0.2, Neutrophils # (Auto) 7.23, Lymphocytes # (Auto) 2.69, Monocytes # (Auto) 0.79, Eosinophils # (Auto) 0.22, Basophils # (Auto) 0.02 07/22/16 05:37 Test 07/21/16 14:00 07/22/16 05:37 Troponin I 3.160 ng/ml (0-0.045) White Blood Count 11.00 K/uL (4.8-10.8) Red Blood Count 4.33 M/uL (4.2-5.4) Hemoglobin 13.3 g/dL (12.0-16.0) Hematocrit 39.9 % (37-47) Mean Corpuscular Volume 92.1 fL (80-100) Mean Corpuscular Hemoglobin 30.7 pg (25-34) Mean Corpuscular Hemoglobin Concent 33.3 g/dl (32-36) Platelet Count 176 K/uL (130-400) Mean Platelet Volume 12.1 fL (7.4-10.4) Neutrophils (%) (Auto) 65.6 % Lymphocytes (%) (Auto) 24.5 % Monocytes (%) (Auto) 7.2 % Eosinophils (%) (Auto) 2.0 % Basophils (%) (Auto) 0.2 % Neutrophils # (Auto) 7.23 K/uL (1.4-6.5) Lymphocytes # (Auto) 2.69 K/uL (1.2-3.4) Monocytes # (Auto) 0.79 K/uL (0.11-0.59) Eosinophils # (Auto) 0.22 K/uL (0-0.5) Basophils # (Auto) 0.02 K/uL (0-0.2) RDW Standard Deviation 45.1 fL (36.4-46.3) RDW Coefficient of Variation 13.4 % (11.5-14.5) Immature Granulocyte % (Auto) 0.5 % Immature Granulocyte # (Auto) 0.05 K/uL (0.00-0.02) Activated Partial Thromboplast Time 27.3 SECONDS (21.0-31.0) Partial Thromboplastin Ratio 1.1 Anion Gap 9.0 mmol/L (3-11) Est Creatinine Clear Calc Drug Dose 129.4 ml/min Estimated GFR () 140.3 Estimated GFR (Non- 121.0 BUN/Creatinine Ratio 19.0 (10-20) Estimated Average Glucose 103 mg/dl Hemoglobin A1c 5.2 % (4.5-5.6) Calcium Level 8.2 mg/dl (8.5-10.1) Total Bilirubin 0.2 mg/dl (0.2-1) Aspartate Amino Transf (AST/SGOT) 27 U/L (15-37) Alanine Aminotransferase (ALT/SGPT) 25 U/L (12-78) Alkaline Phosphatase 66 U/L (45-117) Total Protein 6.1 gm/dl (6.4-8.2) Albumin 3.5 gm/dl (3.4-5.0) Globulin 2.6 gm/dl (2.5-4.0) Albumin/Globulin Ratio 1.3 (0.9-2) Thyroid Stimulating Hormone (TSH) 0.899 uIu/ml (0.300-4.500)
[2016-07-22 11:37] VITALS: BP 139/93; PULSE 68; TEMP 36.8; O2SAT 98
[2016-07-22 12:00] VITALS: O2SAT 94
[2016-07-22] MEDS: MoRPHine SULFATE 2 MG/ML CARP IV PRN (12:00)
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
[2016-07-22] MEDS ORDERED: ALPR-411 PO (12:13)
[2016-07-22] MEDS ORDERED: ULT50X PO (12:13)
[2016-07-22 12:55] VITALS: BP 139/93; PULSE 68; TEMP 36.8; O2SAT 94
[2016-07-23 06:10] LABS: COD UR NEGATIVE NG/ML (CUTOFF=50); HYDROCOD UR NEGATIVE NG/ML (CUTOFF=50); HYDROMOR UR NEGATIVE NG/ML (CUTOFF=50); HYDROXYETHYLFLURAZEPAM CONF NEGATIVE NG/ML (CUTOFF=50); HYDROXYMIDAZOLAM NEGATIVE NG/ML (CUTOFF=50); HYDROXYTRIAZOLAM CONF NEGATIVE NG/ML (CUTOFF=50); MORPHINE UR 3440 NG/ML (CUTOFF=50); NORHYDROCODONE CONF UR NEGATIVE NG/ML (CUTOFF=50); OXYMORPH UR NEGATIVE NG/ML (CUTOFF=50); TEMAZEPAM CONF NEGATIVE NG/ML (CUTOFF=50)
[2016-08-13] MEDS ORDERED: TYL325X PO (10:09)
[2016-08-13] MEDS ORDERED: ULT50X PO (10:09)
[2016-08-13] MEDS ORDERED: ALPR-411 PO ×2 (10:09→13:25)
[2016-08-13] MEDS ORDERED: LPR25 PO (10:18)
[2016-08-17] MEDS ORDERED: NTRGSL/4 UT (14:33)
== END 2016-07-22 14:21 | disposition home or self-care (01) | DRG 282 ==
LOC: ENRESERVTM → ENRESERVDT → EDBD 10:30 → C.EDB 10:31 → C.2E 13:51
PROVIDERS: ADMIT Internal Medicine; ATTEND Internal Medicine
PROC: 4A023N7 Measurement of Cardiac Sampling and Pressure, Left Heart, Percutaneous Approach (ICD-10-PCS; principal; 2016-07-21 12:22)
PROC: B211YZZ Fluoroscopy of Multiple Coronary Arteries using Other Contrast (ICD-10-PCS; principal; 2016-07-21 12:22)
DX: I21.4 Non-ST elevation (NSTEMI) myocardial infarction (principal); F41.9 Anxiety disorder, unspecified; Z82.49 Family history of ischemic heart disease and other diseases of the circulatory system; F17.210 Nicotine dependence, cigarettes, uncomplicated; Z90.49 Acquired absence of other specified parts of digestive tract; Z79.82 Long term (current) use of aspirin; Z79.899 Other long term (current) drug therapy

== ENCOUNTER 2016-08-12 11:22 | Observation (INO) | payer OTHER ==
[~2016-08-12] VITALS: Ht 152.4 cm; Wt 64.4 kg
[~2016-08-12 11:22] MED LIST changes: +ALPR-411 PO; +ASPEC81 PO; -BUPR-83 PO; +LPR25 PO; +LPT40 PO; -LRT5 PO; +LSN5 PO; +MULTTAB58 PO; +PLV75 PO; +ULT50X PO
[2016-08-12 12:03] LABS: HEMATOCRIT 42.7 % (37-47); MEAN CELL VOLUME 90.1 fL (80-100); MEAN CORPUSCULAR HEMOGLOBIN 31.6 pg (25-34); MEAN CORPUSCULAR HGB CONC 35.1 g/dl (32-36); PLATELET COUNT 194 K/uL (130-400); RED BLOOD COUNT 4.74 M/uL (4.2-5.4); WHITE BLOOD COUNT 9.71 K/uL (4.8-10.8)
[2016-08-12 12:08] LABS: PROTHROMBIN TIME (PATIENT) 10.7 SECONDS (9.0-12.0)
[2016-08-12 12:22] LABS: BUN/CREATININE RATIO 12.1 (10-20); CALCIUM 9.2 mg/dl (8.5-10.1); CREATININE 0.82 mg/dl (0.60-1.20); POTASSIUM 3.6 mmol/L (3.5-5.1)
[2016-08-12 12:25] LABS: ALB/GLOB RATIO 1.3 (0.9-2); CKMB/CK RATIO 1.1 (0-3.0)
--- NOTE | 2016-08-12 12:36 | EMERGENCY ROOM VISIT NOTE ---
History Report prepared by Jose: Joan Leung Under the Supervision of: Dr. Belen Giles M.D. First contact with patient: 12:13 Chief Complaint: CHEST PAIN Stated Complaint: SOB, CHEST PAIN History of Present Illness The patient is a 41 year old female who presents to the Emergency Room via ambulance with complaints of intermittent palpitations that began this morning around 0930. When her symptoms began, she felt her heart pounding, lightheadedness, and hot. She took Nitroglycerin with relief; however, her symptoms returned when she stood up so she took another Nitro with relief. She felt better around 1030AM. She had third Nitroglycerin prior to the ambulance arriving. About 30 minutes ago while she was in the ED, she had another episode which went away on its own. She currently has some right sided chest tightness. The patient was admitted to the hospital July 20 for acute coronary syndrome and had a cardiac catheterization. The patient was suspected to have coronary artery dissection. Her current symptoms do not feel similar to her previous hospital visit; she had left arm and left shoulder discomfort at that time. The patient had a follow up appointment 2 days ago and was taken off of Metoprolol. She was previously on 25 mg twice a day. Yesterday was her first day without a dose of Metoprolol. She reports that she drank coffee this morning. She took a baby aspirin this morning. Denies any other complaints. Source of History: patient Onset: 0930 Position: other (cardiac) Quality: other (palpitations) Timing: intermittent Modifying Factors (Relieving): other (Nitro) Note: Other symptoms: chest tightness, lightheadedness, hot Review of Systems See HPI for pertinent positives & negatives. A total of 10 systems reviewed and were otherwise negative. Past Medical & Surgical Medical Problems: (1) Chest pain Surgical Problems: (1) S/P cholecystectomy Family History Gallbladder disease Heart disease Social History Smoking Status: Current Every Day Smoker Alcohol Use: occasionally Drug Use: none Marital Status: Housing Status: lives with family Occupation Status: employed Current/Historical Medications Scheduled Aspirin (Aspirin EC Low Dose), 81 MG PO QAM Atorvastatin (Atorvastatin Calcium), 80 MG PO QAM Clopidogrel Bisulfate (Clopidogrel), 75 MG PO QAM Lisinopril (Lisinopril), 5 MG PO QAM Metoprolol Tartrate (Lopressor), 12.5 MG PO BID Multiple Vitamin (Multivitamin), 1 TAB PO DAILY Scheduled PRN Acetaminophen (Tylenol), 650 MG PO Q4H PRN for Pain Alprazolam (Xanax), 0.25 MG PO Q8 PRN for Anxiety Tramadol HCl (Tramadol HCl), 50 MG PO Q8H PRN for Pain Allergies Coded Allergies: No Known Allergies (Unverified , 07/20/16) Physical Exam Vital Signs Date Time Temp Pulse Resp B/P Pulse Ox O2 Delivery O2 Flow Rate FiO2 08/12/16 13:31 80 18 135/72 97 Room Air 08/12/16 11:59 100 Nasal Cannula 2.0 08/12/16 11:41 97 Room Air 08/12/16 11:39 75 08/12/16 11:30 36.8 80 18 137/79 98 Room Air 08/12/16 11:30 98 Room Air Physical Exam Vital signs reviewed. General: Well-appearing 41 year old female, in no significant distress. HEENT: No scleral icterus, PERRLA, neck supple. Atraumatic. Cardiovascular: Regular rate and rhythm, no extra sounds. Pulmonary: Clear to auscultation bilaterally, normal work of breathing. Abdomen: Soft, nontender, nondistended, positive bowel sounds. Musculoskeletal: Atraumatic, no peripheral edema. Neurologic: Patient awake alert and oriented x 3 Skin: Warm, dry, no rash Medical Decision & Procedures ER Provider Diagnostic Interpretation: Radiology results as stated below per my review and radiologist interpretation: CHEST ONE VIEW PORTABLE CLINICAL HISTORY: chest pain dyspnea COMPARISON STUDY: 07/20/2016 FINDINGS: The bones soft tissues and hemidiaphragms are normal. The cardiomediastinal silhouette is normal. The lungs are clear. The pulmonary vasculature is normal. IMPRESSION: Negative chest. Electronically signed by: Ez Dillard M.D. 08/12/2016 12:39 PM Dictated Date/Time: 08/12/2016 12:39 PM Laboratory Results Test 08/12/16 10:45 08/12/16 13:00 Prothrombin Time 10.7 SECONDS (9.0-12.0) Prothromb Time International Ratio 1.0 (0.9-1.1) Activated Partial Thromboplast Time 25.9 SECONDS (21.0-31.0) Partial Thromboplastin Ratio 1.0 Total Bilirubin 0.6 mg/dl (0.2-1) Aspartate Amino Transf (AST/SGOT) 15 U/L (15-37) Alanine Aminotransferase (ALT/SGPT) 37 U/L (12-78) Alkaline Phosphatase 66 U/L (45-117) Total Creatine Kinase 75 U/L (26-192) Creatine Kinase MB 0.8 ng/ml (0.5-3.6) Creatine Kinase MB Ratio 1.1 (0-3.0) Total Protein 7.9 gm/dl (6.4-8.2) Albumin 4.4 gm/dl (3.4-5.0) Globulin 3.5 gm/dl (2.5-4.0) Albumin/Globulin Ratio 1.3 (0.9-2) Chemistry Specimen Hemolysis Bedside Troponin I 0.010 ng/ml (0-0.045) Laboratory results per my review. ECG Indication: palpitations Rate (beats per minute): 74 Rhythm: normal sinus Findings: T-wave inversion (Anterolateral), other (previous anterior infarct) Comparison ECG Date: 07/21/16 Change: no significant change ED Course 1218: Past medical records reviewed. The patient was evaluated in room A9B. A complete history and physical examination was performed. 1330: Upon reevaluation, the patient is resting comfortably. I discussed laboratory and radiographic results with the patient. She verbalized agreement of the treatment plan. 1337: I discussed the case with Dr. Aly DUMONT Hospitalist. The patient will be evaluated for further management. Medical Decision Chest pain: Acute coronary syndrome, pulmonary embolus, aortic dissection, musculoskeletal pain, pneumonia, pleural effusion, pneumothorax, recurrent carotid artery dissection. This patient was evaluated and appeared to be in no significant distress. IV access was obtained and laboratory work was drawn. The patient was placed on monitoring analyst and found to be in a normal sinus rhythm. EKG reveals no significant changes from previous. Patient's laboratory work reveals negative cardiac enzymes. Chest x-ray is clear. I suspect the patient's symptoms are related to her abrupt discontinuation of metoprolol however with her recent history of coronary dissection spontaneously, she will be evaluated by the hospitalist service for further cardiac management. Patient is aware of the plan and agrees. Consults Time Called: [phone] Consulting Physician: Dr. Aly DUMONT Hospitalist Returned Call: [phone] I discussed the case with him. The patient will be evaluated for further management. Impression Primary Impression: Right-sided chest pain Additional Impression: Palpitations Scribe Attestation The scribe's documentation has been prepared under my direction and personally reviewed by me in its entirety. I confirm that the note above accurately reflects all work, treatment, procedures, and medical decision making performed by me. Departure Information Dispostion Being Evaluated By Hospitalist Prescriptions Alprazolam (Xanax) 0.5 Mg Tab 0.25 MG PO Q8 Y for Anxiety, #20 TAB 0 Refills Prov: Juancho Escalante, D.O. 08/13/16 Metoprolol Tartrate (LOPRESSOR) 25 Mg Tab 12.5 MG PO BID, #15 TAB 3 Refills Prov: Juancho Escalante D.O. 08/13/16 Acetaminophen (Tylenol) 325 Mg Tab 650 MG PO Q4H Y for Pain, #60 TAB 3 Refills Prov: Juancho Escalante D.O. 08/13/16 Tramadol HCl (Tramadol HCl) 50 Mg Tab 50 MG PO Q8H Y for Pain, #14 TABS 0 Refills Prov: Juancho Escalante D.O. 08/13/16 Referrals Leonel Morgan M.D. (PCP) Patient Instructions My [facility] Problem Qualifiers
--- NOTE | 2016-08-12 12:41 | DIAGNOSTIC IMAGING REPORT ---
CHEST ONE VIEW PORTABLE CLINICAL HISTORY: chest pain dyspnea COMPARISON STUDY: 07/20/2016 FINDINGS: The bones soft tissues and hemidiaphragms are normal. The cardiomediastinal silhouette is normal. The lungs are clear. The pulmonary vasculature is normal. IMPRESSION: Negative chest. Electronically signed by: Ez Dillard M.D. 08/12/2016 12:39 PM Dictated Date/Time: 08/12/2016 12:39 PM
[2016-08-12] MEDS ORDERED: TRAMADOL HCL 50 MG TAB PO PRN (14:00)
[2016-08-12] MEDS ORDERED: ONDANSETRON INJ 2 MG/ML 2 ML VIAL IV PRN (14:00)
[2016-08-12] MEDS ORDERED: NITROGLYCERIN 0.4 MG SL PER TAB CHARGE SL PRN (14:00)
[2016-08-12] MEDS ORDERED: ACETAMINOPHEN 325 MG TAB PO PRN (14:00)
[2016-08-12] MEDS ORDERED: POLYETHYLENE (MIRALAX) 17 GM PACK PO PRN (14:00)
[2016-08-12] MEDS ORDERED: MoRPHine SULFATE 2 MG/ML CARP IV PRN (14:00)
[2016-08-12] MEDS ORDERED: OPTIRAY 320 IV PRN (14:45)
--- NOTE | 2016-08-12 15:27 | HISTORY & PHYSICAL EXAMINATION ---
DATE OF ADMISSION: 08/12/2016 CHIEF COMPLAINT: Chest pain. ADMITTING DIAGNOSIS: Chest pain. HISTORY OF PRESENT ILLNESS: Ms. Matthews is a 41-year-old female who was admitted on the 20 of July with chest pain felt to be acute coronary syndrome. She had a cardiac catheterization which revealed a dissection of her left anterior descending artery which was stented by Dr. Jacky Cat. The patient was discharged on 22 of July. The patient reported to Dr. Wagner' office this past week, she said she was feeling fatigued. He thought that it maybe from her metoprolol. He discontinued her metoprolol which was at 25 b.i.d. but continued aspirin, Plavix, atorvastatin, lisinopril, multivitamins, Xanax and tramadol. The patient subsequently had her first full 24 hours without the metoprolol. She presents to the Emergency Department having paroxysms of palpitations and chest pain beginning around 9:30 this morning. She felt lightheaded and hot with this. She took nitroglycerin at home with relief, the symptoms returned when she stood up and she took additional nitro. She presented to the Emergency Department where she has not had any additional palpitations. Her initial cardiac evaluation was unremarkable with a troponin of 0.01 and an EKG showing lateral ST changes which are similar to her previous EKGs. She also complains of some facial paresthesias and some fullness in her neck ever since the catheterization. She denies any visual changes, amaurosis fugax type symptoms. She denies any neck discomfort. She denies any stroke-like symptoms of facial drooping, voice or coordination problems. PAST MEDICAL HISTORY: Only for tennis elbow and her cardiac disease. MEDICATIONS: Xanax p.r.n., aspirin 81, atorvastatin 80, Plavix 75, lisinopril 5, multivite, tramadol p.r.n. SOCIAL HISTORY: She did smoke prior to this event. FAMILY HISTORY: Inclusive for gallbladder disease and heart disease. REVIEW OF SYSTEMS: Ten systems were reviewed and are negative unless listed above. PHYSICAL EXAMINATION: GENERAL: She is pleasant. She is in no distress currently. VITAL SIGNS: Her temperature is 36.8, pulse is 80, respirations 18, BP 135/72, O2 sat 97 on room air. HEENT: PERRL, EOMI. Oropharynx clear. Extraocular muscles are intact. Oropharynx is with moist mucous membranes. NECK: Without lymphadenopathy. There are no carotid bruits. HEART: Regular without murmurs, clicks, rubs or gallops. Her discomfort is slightly reproducible. LUNGS: Clear without wheezes or crackles. Good air movement. ABDOMEN: Normoactive bowel sounds, soft, nontender, nondistended, no organomegaly. No bruits. EXTREMITIES: Without cyanosis, clubbing or edema. She has equal bilateral pulses at the radial and dorsalis pedis. NEUROLOGICALLY: She is awake, alert and appropriate. Cranial nerves II through XII are intact. She has no facial droop. She has equal symmetrical strength and sensation in upper and lower extremities. LABORATORY DATA: White count 9.7, H\T\H 15 and 42, platelet count 194, BUN and creatinine of 10 and 0.8. Troponin 0.01. Chest x-ray is unremarkable. EKG shows lateral T-wave depression. ASSESSMENT: A 41-year-old female here with recent cardiac intervention here with discomfort. PLAN: The patient will be observed in our facility. Serial troponins will be undertaken. Consult with Dr. Jacky Wagner will be undertaken. Because of her discomfort in her chest and with concern of dissection of another vessel we will pursue a CT dissection study to evaluate this and check a sed rate to be sure that she does not have any underlying occult vasculitis that we did not diagnose previously. We will maintain her aspirin, atorvastatin, Plavix, lisinopril. We will not restart her metoprolol as Dr. Wagner feels that is not warranted. DVT prevention currently is early ambulation.
[2016-08-12] MEDS ORDERED: IV FLUIDS COMPLETED PRN (17:00)
--- NOTE | 2016-08-12 17:20 | DIAGNOSTIC IMAGING REPORT ---
CHEST CTA for AORTIC DISSECTION CT DOSE: 449.00 mGy.cm HISTORY: Atypical chest pain. Dyspnea. TECHNIQUE: Multiaxial CT images of the chest were performed both before and after the intravenous administration of contrast to evaluate the aorta. Maximal intensity projection images were also obtained. COMPARISON STUDY: Chest 08/12/2016. FINDINGS: Noncontrast imaging through the chest shows no evidence for an intramural hematoma within the thoracic aorta. The thoracic aorta is normal in course and caliber with no evidence for dissection. The central pulmonary arteries are patent. No pleural or pericardial effusions. No mediastinal or hilar lymphadenopathy. The visualized liver, spleen, and adrenal glands are unremarkable. Cholecystectomy. IMPRESSION: No evidence for an aortic dissection. Electronically signed by: Alejandro Blackwood M.D. 08/12/2016 5:17 PM Dictated Date/Time: 08/12/2016 4:58 PM
[2016-08-12] MEDS: ALPRAZOLAM 0.5 MG TAB PO PRN (17:25)
[2016-08-12 18:36] VITALS: BP 134/84; PULSE 65; TEMP 36.6; Ht 152.4 cm; Wt 64.4 kg
[2016-08-12 19:51] VITALS: BP 107/66; PULSE 63; TEMP 36.3; O2SAT 96
[2016-08-12] MEDS ORDERED: NURSING VERBAL MED ORDER ONE (22:45)
[2016-08-12 22:55] VITALS: BP 95/61; PULSE 59; TEMP 36.4; O2SAT 98
[2016-08-12] MEDS ORDERED: KETOROLAC TROMETHAMINE 30 MG/ML VIAL IV. PRN (23:00)
--- NOTE | 2016-08-13 01:12 | CARDIOLOGY CONSULTATION ---
DATE OF CONSULTATION: 08/12/2016 CONSULTATION REQUESTED BY: Dr. Lu. REASON FOR CONSULTATION: Chest pain. HISTORY OF PRESENT ILLNESS: Ms. 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 The patient was previously admitted on July 20 after presenting with constant left arm/shoulder pain that radiated to her neck. She had a troponin that trended up to 7.2 and underwent cardiac catheterization, which showed no significant coronary artery disease except for a diffuse narrowing of her mid LAD to the apex which was thought most consistent with SCAD. She underwent an echo which showed grossly normal LV function, apical hypokinesis and she was started on dual antiplatelet therapy, beta-sadia, MORELIA inhibitor, and statin. Renal artery duplex at that time was negative for any signs of fibromuscular dysplasia. She was discharged to home. Her activity levels has been low. She has had intermittent vague chest discomfort and generalized fatigue since that time. She was seen by me in the outpatient setting 2 days ago. At that time due to her generalized fatigue and inability to work, decision was made to hold her metoprolol to see if she felt any better. Today, she states she was at home watching TV when all of a sudden she felt pounding in her chest and some atypical pain involving her right shoulder and across her whole chest wall. She also had some burning/warmth in her left arm. These symptoms were not similar to what she previously had in July. She took 2 sublingual nitroglycerins without significant relief. She felt her heart to be pounding as she waited for EMS, she took a third nitroglycerin without significant relief and was then brought to the Emergency Department. Here, she was hemodynamically and electrically stable her EKG was unchanged and her initial troponin was negative. She had a chest x-ray that showed no acute cardiopulmonary process and then was seen by Dr. Lu who ordered a CT scan of her chest to rule out dissection, per my read no evidence of dissection, proximal coronaries look normal, LV size looks normal. No pericardial effusion. PAST MEDICAL HISTORY: 1. Coronary artery disease, spontaneous coronary artery dissection, NSTEMI. 2. Anxiety. 3. GERD. 4. Depression. FAMILY HISTORY: No family history of premature coronary artery disease. Her grandmother and grandfather both had coronary artery disease with [place]. SOCIAL HISTORY: She is . She works for the [employer]. She still smokes approximately half pack per day. Drinks occasional alcohol. HOME MEDICATIONS: Include nitroglycerin, alprazolam, lisinopril 5, metoprolol is on hold, multivitamin, aspirin 81, atorvastatin 80, Plavix 75, and Tramadol. ALLERGIES: No known drug allergies. PHYSICAL EXAMINATION: VITAL SIGNS: Temperature 36.8, pulse 74, blood pressure 126/68, satting 95% on room air. GENERAL: The patient appears well, is comfortable, no acute distress. HEENT: Sclerae are anicteric. Oropharynx is clear. Mucous membranes are moist. NECK: Supple with no lymphadenopathy. She has no jugular venous distention. LUNGS: Clear to auscultation bilaterally. CARDIAC: She has a regular rate and rhythm with no murmurs, rubs or gallops. ABDOMEN: Soft, nontender, nondistended with positive bowel sounds. EXTREMITIES: Warm with no significant lower extremity edema. SKIN: Shows no rashes or lesions. NEUROLOGIC: Nonfocal. PSYCHIATRIC: She is alert and oriented x3, mood and affect are appropriate. LABORATORY DATA: White blood cell count 9.7, hemoglobin 15, platelets of 194. INR 1.0. Sodium 143, potassium 3.6, BUN 10, creatinine 0.8. LFTs within normal limits. Point of care troponin 0.01. Chest x-ray showed no acute cardiopulmonary process. CT scan of the chest showed no evidence of aortic dissection, the central pulmonary arteries were patent and there was no pericardial effusion. EKG showed sinus rhythm and a ventricular rate of 74 with poor diagnostic quality image but there was questionable lateral ST changes, unchanged from prior. IMPRESSION AND PLAN: 1. Atypical chest pain/palpitations. 2. History of non ST elevation myocardial infarction thought secondary to spontaneous coronary artery dissection. 3. Anxiety. Patient here with atypical chest pain symptoms, not reminiscent of prior symptoms that she had when she had her NSTEMI event last month. Her initial workup has been unremarkable with negative cardiac enzymes, unchanged EKG and no evidence of any acute chest process on CTA. At this point low suspicion for recurrent coronary event. Relatively low suspicion for arrhythmia leading to symptoms but will monitor on telemetry overnight. Do feel that there may be a significant anxiety component with the patient's current symptoms. For now, agree with continued monitoring, trend troponins, monitor on telemetry overnight. Assuming telemetry and troponins are unremarkable, no further imaging thought necessary at this time. Would continue on current aspirin and Plavix, high dose statin and MORELIA inhibitor. We will plan to resume patient's metoprolol at 12.5 b.i.d. Assuming the patient is doing well in the a.m. could be discharged with continued cardiac followup. Thank you for allowing us to participate in the care of this patient. Please contact with any questions. RICHARD
[2016-08-13 04:11] VITALS: BP 103/69; PULSE 60; TEMP 36.4; O2SAT 95
[2016-08-13 04:28] LABS: HEMATOCRIT 36.6 % (37-47); MEAN CORPUSCULAR HEMOGLOBIN 31.4 pg (25-34); MEAN CORPUSCULAR HGB CONC 34.2 g/dl (32-36); MEAN PLATELET VOLUME 11.9 fL (7.4-10.4); PLATELET COUNT 155 K/uL (130-400); RED BLOOD COUNT 3.98 M/uL (4.2-5.4); WHITE BLOOD COUNT 7.22 K/uL (4.8-10.8)
[2016-08-13 04:52] LABS: BLOOD UREA NITROGEN 13 mg/dl (7-18); BUN/CREATININE RATIO 22.6 (10-20); CALCIUM 8.4 mg/dl (8.5-10.1); CARBON DIOXIDE 29 mmol/L (21-32); CHLORIDE 109 mmol/L (98-107); CREATININE 0.57 mg/dl (0.60-1.20); GLUCOSE 90 mg/dl (70-99); POTASSIUM 3.5 mmol/L (3.5-5.1); SODIUM 143 mmol/L (136-145)
[2016-08-13] MEDS: ALPRAZOLAM 0.5 MG TAB PO PRN (05:30)
[2016-08-13 07:56] VITALS: BP 106/63; PULSE 73; TEMP 36.7; O2SAT 96
[2016-08-13 08:00] VITALS: O2SAT 96
[2016-08-13] MEDS ORDERED: MULTIVITAMIN TAB PO SCH (09:00)
[2016-08-13] MEDS ORDERED: ASPIRIN 81 MG ECTAB PO SCH (09:00)
[2016-08-13] MEDS ORDERED: LISINOPRIL 5 MG TAB PO SCH (09:00)
[2016-08-13] MEDS ORDERED: ATORVASTATIN 40 MG TAB PO SCH (09:00)
[2016-08-13] MEDS ORDERED: CLOPIDOGREL BISULFATE 75 MG TAB PO SCH (09:00)
[2016-08-13] MEDS ORDERED: ALPR-411 PO ×3 (10:09→13:25)
[2016-08-13] MEDS ORDERED: TYL325X PO (10:09)
[2016-08-13] MEDS ORDERED: ULT50X PO (10:09)
--- NOTE | 2016-08-13 10:17 | Discharge Instructions ---
Discharge Instructions Date of Service Aug 13, 2016. Admission Reason for Admission: Chest Pain Discharge Discharge Diagnosis / Problem: chest pain, left shoulder pain, anxiety about recent medical issues Discharge Goals Goal(s): Decrease discomfort, Improve function, Specific goals (follow up with Dr. Morgan about left shoulder pain, anxiety) Activity Recommendations Activity Limitations: resume your previous activity Lifting Limitations: none Exercise/Sports Limitations: as tolerated May Resume Sexual Activity: when tolerated Shower/Bathe: no limitations Driving or Machine Use: no limitations . Instructions / Follow-Up Instructions / Follow-Up Medications: - ULTRAM: use as needed for left shoulder pain, gave you short prescription, you need to follow up with Dr. Morgan for further work up and treatment - XANAX: increased frequency to every 8 hours as needed, see below for details - TYLENOL: use primarily for shoulder pain, as we discussed, would recommend using Advil or Aleve but currently contraindicated due to Aspirin and Plavix use - METOPROLOL: please note that dose decreased to 12.5mg twice a day, you can cut your 25mg tablets in half for now and then fill prescription Chest pain/pressure: EKG unchanged, troponin negative x 3, no dissection or artery changes on CT chest, ESR normal at 2 which rules out vasculitis cleared by Dr. Wagner for discharge to home, follow up with him in a few weeks Left shoulder pain: suspect musculoskeletal, possible impingement since it gets worse raising arm, treat with Tylenol and Ultram for short course, follow up with Dr. Morgan Anxiety: reasonable with recent coronary dissection and concerns about health, for now I will increase Xanax frequency to every 8 hours as needed as we discussed, Xanax can be habit forming so this is only meant as a short term treatment for increased anxiety you need to follow with Dr. Morgan, discuss healthy options for treatment of anxiety you can be assured that during this admission we ruled out any further serious issues with your heart and chest FOLLOW UP - Dr. Morgan later this week, call to make appointment on Monday - Dr. Wagner in a few weeks, call to make appointment Current Hospital Diet Patient's current hospital diet: Regular Diet Discharge Diet Recommended Diet: Regular Diet Procedures Procedures Performed: CT chest - no dissection Pending Studies Studies pending at discharge: no Laboratory Results Last Resulted CBC 08/13/16 03:52 Last Resulted BMP 08/13/16 03:52 Hemoglobin A1c Test 07/22/16 05:37 Range/Units Estimated Average Glucose 103 mg/dl Hemoglobin A1c 5.2 4.5-5.6 % Lipid Panel Test 07/21/16 07:53 Range/Units Triglycerides Level 135 0-150 mg/dl Cholesterol Level 135 0-200 mg/dl HDL Cholesterol 43 mg/dl Cholesterol/HDL Ratio 3.1 LDL Cholesterol, Calculated 65 mg/dl Medical Emergencies . Who to Call and When: Medical Emergencies: If at any time you feel your situation is an emergency, please call 911 immediately. . Non-Emergent Contact Non-Emergency issues call your: Primary Care Provider Call Non-Emergent contact if: you have any medication questions . . "Provider Documentation" section prepared by Juancho Escalante. VTE Core Measure Inpt VTE Proph given/why not?: Treatment not indicated [place] Drug Monitoring Program Search Results: no issues identified
[2016-08-13] MEDS ORDERED: LPR25 PO ×2 (10:18)
[2016-08-13 10:25] VITALS: BP 106/63; PULSE 73; TEMP 36.7; O2SAT 96
--- NOTE | 2016-08-13 10:29 | Cardiology Follow-Up ---
Subjective Subjective Date of Service: Aug 13, 2016. Pt evaluation today including: conversation w/ patient, physical exam, chart review, lab review, review of studies, review of inpatient medication list Additional Details: Still with some mild diffuse chest tightness. No other new complaints. No events on telemetry Reviewed ECGs anterolateral TWI persists, more pronounced on ECG yesterday at 6PM Problem List Medical Problems: (1) Acute coronary syndrome Status: Acute (2) Palpitations Status: Acute (3) Right-sided chest pain Status: Acute Review of Systems Constitutional: No chills, No fever Eyes: No worsening of vision ENT: + tinnitus, No hearing loss Respiratory: No cough, No shortness of breath Cardiac: + chest pain, + palpitations, No edema Abdomen: No nausea, No pain Neurologic: No memory loss Psychiatric: No depression symptoms Heme: No abnormal bleeding/bruising Endo: + fatigue Skin: No rash Objective Vital Signs Last Vital Signs Documentation Date Time Temp Pulse Resp B/P Pulse Ox O2 Delivery O2 Flow Rate FiO2 08/13/16 08:00 96 Room Air 08/13/16 07:56 36.7 73 16 106/63 08/12/16 11:59 2.0 Physical Exam: General Appearance: no apparent distress ENT: hearing grossly normal Respiratory/Chest: lungs clear, normal breath sounds Cardiovascular: regular rate, rhythm, no edema, no murmur Abdomen: non tender, soft Extremities: no pedal edema, no calf tenderness Neurologic/Psychiatric: alert, normal mood/affect Skin: warm/dry, no rash Assessment and Plan 1. Atypical chest pain 2. Recent NSTEMI/SCAD 3. Anxiety Cardiac enzymes have remained negative. Suspect pain is noncardiac bu question some contribution of coronary vasospasm, less likely arrhythmia For now though patient appears stable and safe for discharge from cardiac standpoint. - continue DAPT, statin, MORELIA on discharge - Would restart beta-sadia at 12.5 BID on discharge. - Follow-up with me as scheduled. If recurrent symptoms will consider addition of CCB/nitrates, and/or ambulatory monitoring. Medications: Current Inpatient Medications Medications (Trade) Dose Ordered Sig/Sneha Route Start Time Stop Time Status Last Admin Dose Admin Alprazolam (Xanax Tab) 1 mg DAILY PRN PO 08/12/16 14:00 09/11/16 13:59 08/13/16 05:30 1 MG Aspirin (Ecotrin Tab) 81 mg QAM PO 08/13/16 09:00 09/12/16 08:59 08/13/16 08:10 81 MG Atorvastatin Calcium (Lipitor Tab) 80 mg QAM PO 08/13/16 09:00 09/12/16 08:59 08/13/16 08:11 80 MG Clopidogrel Bisulfate (plAVix TAB) 75 mg QAM PO 08/13/16 09:00 09/12/16 08:59 08/13/16 08:11 75 MG Lisinopril (Zestril Tab) 5 mg QAM PO 08/13/16 09:00 09/12/16 08:59 08/13/16 08:11 5 MG Multivitamins (Multivitamin Tab) 1 tab DAILY PO 08/13/16 09:00 09/12/16 08:59 08/13/16 08:11 1 TAB Tramadol HCl (Ultram Tab) 50 mg Q8H PRN PO 08/12/16 14:00 09/11/16 13:59 08/12/16 21:01 50 MG Acetaminophen (Tylenol Tab) 650 mg Q4H PRN PO 08/12/16 14:00 09/11/16 13:59 08/13/16 04:13 650 MG Ondansetron HCl (Zofran Inj) 4 mg Q6H PRN IV 08/12/16 14:00 09/11/16 13:59 Nitroglycerin (Nitrostat Tab) 0.4 mg UD PRN SL 08/12/16 14:00 09/11/16 13:59 Morphine Sulfate (MoRPHine SULFATE INJ) 2 mg Q30M PRN IV 08/12/16 14:00 08/26/16 13:59 08/12/16 18:02 2 MG Polyethylene (Miralax Powder Packet) 17 gm DAILY PRN PO 08/12/16 14:00 09/11/16 13:59 Ioversol (Optiray 320) 100 ml UD PRN IV 08/12/16 14:45 08/16/16 14:44 Miscellaneous (Iv Fluids Completed) 1 ea PRN PRN N/A 08/12/16 17:00 08/12/17 16:59 Ketorolac Tromethamine (Toradol Inj) 30 mg Q6H PRN IV. 08/12/16 23:00 08/17/16 22:59 08/12/16 22:52 30 MG Lab Results: 08/13/16 03:52 08/13/16 03:52 Test 08/12/16 10:45 08/12/16 13:00 08/13/16 03:52 Prothrombin Time 10.7 SECONDS (9.0-12.0) Prothromb Time International Ratio 1.0 (0.9-1.1) Activated Partial Thromboplast Time 25.9 SECONDS (21.0-31.0) Partial Thromboplastin Ratio 1.0 Total Bilirubin 0.6 mg/dl (0.2-1) Aspartate Amino Transf (AST/SGOT) 15 U/L (15-37) Alanine Aminotransferase (ALT/SGPT) 37 U/L (12-78) Alkaline Phosphatase 66 U/L (45-117) Total Creatine Kinase 75 U/L (26-192) Creatine Kinase MB 0.8 ng/ml (0.5-3.6) Creatine Kinase MB Ratio 1.1 (0-3.0) Total Protein 7.9 gm/dl (6.4-8.2) Albumin 4.4 gm/dl (3.4-5.0) Globulin 3.5 gm/dl (2.5-4.0) Albumin/Globulin Ratio 1.3 (0.9-2) Chemistry Specimen Hemolysis Bedside Troponin I 0.010 ng/ml (0-0.045) Red Blood Count 3.98 M/uL (4.2-5.4) Mean Corpuscular Volume 92.0 fL (80-100) Mean Corpuscular Hemoglobin 31.4 pg (25-34) Mean Corpuscular Hemoglobin Concent 34.2 g/dl (32-36) RDW Standard Deviation 42.9 fL (36.4-46.3) RDW Coefficient of Variation 12.7 % (11.5-14.5) Mean Platelet Volume 11.9 fL (7.4-10.4) Erythrocyte Sedimentation Rate 2 mm/hr (0-21) Anion Gap 5.0 mmol/L (3-11) Est Creatinine Clear Calc Drug Dose 108.8 ml/min Estimated GFR () 133.5 Estimated GFR (Non- 115.1 BUN/Creatinine Ratio 22.6 (10-20) Calcium Level 8.4 mg/dl (8.5-10.1) Troponin I < 0.015 ng/ml (0-0.045)
--- NOTE | 2016-08-13 13:34 | Discharge Summary ---
Discharge Summary Date of Service Aug 13, 2016. Discharge Summary Admission Date: Aug 12, 2016 at 13:54 Discharge Date: Aug 13, 2016 Discharge Disposition: Home Principal Diagnosis: Chest pain and left shoulder pain Problems/Secondary Diagnoses: Anxiety recent LAD dissection with stent placement Procedures: CT chest - no dissection Consultations: Cardiology - Dr. Wagner Medication Reconciliation New Medications: Metoprolol Tartrate (Lopressor) 25 Mg Tab 12.5 MG PO BID, #15 TAB 3 Refills Acetaminophen (Tylenol) 325 Mg Tab 650 MG PO Q4H PRN for Pain, #60 TAB 3 Refills Changed Medications: Alprazolam (Xanax) 0.5 Mg Tab 0.25 MG PO Q8 PRN for Anxiety, #20 TAB 0 Refills (Changed from: 1 MG; 30) Continued Medications: Aspirin (Aspirin EC Low Dose) 81 Mg Ectab 81 MG PO QAM for 30 Days, 3 Refills Atorvastatin (Atorvastatin Calcium) 40 Mg Tab 80 MG PO QAM for 30 Days, #60 TAB 3 Refills Clopidogrel Bisulfate (Clopidogrel) 75 Mg Tab 75 MG PO QAM for 30 Days, #30 TAB 3 Refills Lisinopril (Lisinopril) 5 Mg Tab 5 MG PO QAM for 30 Days, #30 TAB Multiple Vitamin (Multivitamin) 1 Tab Tab 1 TAB PO DAILY, TAB Tramadol HCl (Tramadol HCl) 50 Mg Tab 50 MG PO Q8H PRN for Pain, #14 TABS 0 Refills (This prescription has been renewed) Discharge Exam Patient without any further chest pain this AM, c/o left shoulder pain, worse with abduction above 90 degrees. No trauma to the shoulder or overuse. She admits to increased anxiety every since her LAD dissection which is understandable. Troponin negative x [address] negative for dissection, appreciate Dr. Wagner's recommendations. Patient okay with going home this AM. Review of Systems: Constitutional: No chills, No fatigue, No fever, No problem reported, No sweats, No weakness, No weight loss Eyes: No diplopia, No discharge, No eye pain, No problem reported, No redness, No worsening of vision ENT: No dental problems, No hearing loss, No nasal symptoms, No problem reported, No sore throat, No tinnitus, No trouble swallowing, No unusual epistaxis Respiratory: No cough, No dyspnea at rest, No dyspnea on exertion, No hemoptysis, No problem reported, No shortness of breath, No sputum, No wheezing Cardiovascular: + chest pain (pressure, upper chest, resolved), No PND, No claudication, No edema, No orthopnea, No palpitations, No problem reported Abdomen: No GI bleeding, No constipation, No diarrhea, No nausea, No pain, No problem reported, No vomiting Musculoskeletal: + joint pain (left shoulder), No calf pain, No muscle pain , No problem reported, No swelling Genitourinary - Female: No dysuria, No urinary frequency, No urinary incontinence, No urinary urgency Neurologic: No balance problems, No memory loss, No numbness/tingling, No paralysis, No problem reported, No vertigo, No weakness Psychiatric: + anxiety, No anhedonism, No depression symptoms, No insomnia, No problem reported, No substance abuse Endocrine: No excessive thirst, No excessive urination, No fatigue, No problem reported Hematologic / Lymphatic: No abnormal bleeding/bruising, No clotting problems , No night sweats, No problem reported, No swollen lymph nodes Integumentary: No bleeding, No color change, No itch, No new/changing skin lesions, No problem reported, No rash Physical Exam: General Appearance: WD/WN, no apparent distress Eyes: normal inspection, EOMI, sclerae normal ENT: normal ENT inspection, hearing grossly normal, pharynx normal Neck: supple, no adenopathy, no JVD, no carotid bruits (bilaterally), trachea midline Respiratory/Chest: chest non-tender, lungs clear, normal breath sounds, no respiratory distress, no accessory muscle use Cardiovascular: regular rate, rhythm, no edema, no gallop, no JVD, no murmur , normal peripheral pulses Abdomen / GI: normal bowel sounds, non tender, soft, no organomegaly Extremities: normal inspection, no calf tenderness, normal capillary refill , no pedal edema, normal range of motion, non-tender, pelvis stable, + pertinent finding (left shoulder, pain when abducting above 90 degress, no pain with palpation, actually better with palpation, full ROM) Neurologic/Psychiatric: feeder catcher II-XII nml as tested, no motor/sensory deficits , alert, normal reflexes, oriented x 3, + pertinent finding (slightly anxious) Skin: normal color, warm/dry, no rash Lymphatic: no adenopathy Hospital Course 41 yo female with recent LAD dissection treated with stent and aspirin, Plavix, statin therapy, returned to the hospital for chest pain at rest, burning sensation, anxiety, left shoulder pain - Chest pain, palpitations: atypical symptoms, no evidence of ischemia on EKG, troponin negative x 3, CT negative for dissection appreciate consult from Dr. Wagner, recommended resuming Metoprolol at 12.5mg BID she will follow up with Dr. Wagner - Left shoulder pain: certainly musculoskeletal in nature, could be tendinitis or bursitis, impingement with increased pain on abduction recommend conservative care with Tylenol, would recommend NSAIDs but not with concurrent use of aspirin and Plavix if Tylenol does not help, short script provided for Ultram pain is moderate at best, no narcotics recommended work up as outpatient - Anxiety: increased every since her LAD dissection, this is understandable she worries about any little symptom that seems abnormal says that the 0.25mg once a day is not enough prescribed her 0.25mg up to q8 as needed for short course discussed that this can be habit forming and addicting, only intended short term needs to follow up and discuss with Dr. Morgan - LAD dissection on prior admission: stable, stent placed by Dr. Wagner at that time continue aspirin, Plavix, Lipitor and resume Metoprolol at 12.5mg BID instead of 25mg BID (this dose caused fatigue) Total Time Spent: Greater than 30 minutes This includes examination of the patient, discharge planning, medication reconciliation, and communication with other providers. Discharge Instructions Please refer to the electronic Patient Visit Report (Discharge Instructions) for additional information. Follow-Up Dr. Morgan next week Dr. Wagner in several weeks Additional Copies To Ashok Wagner MD; Leonel Morgan M.D.
[2016-08-17] MEDS ORDERED: NTRGSL/4 UT (14:33)
== END 2016-08-13 11:10 | disposition home or self-care (01) ==
LOC: ENRESERVDT → ENRESERVTM → EDBD 11:22 → C.EDA 11:24 → C.MED 13:54
PROVIDERS: ADMIT Internal Medicine; ATTEND Internal Medicine
DX: R07.9 Chest pain, unspecified (principal); M25.512 Pain in left shoulder; F41.9 Anxiety disorder, unspecified; I25.2 Old myocardial infarction; F32.9 Major depressive disorder, single episode, unspecified; Z90.49 Acquired absence of other specified parts of digestive tract; F17.200 Nicotine dependence, unspecified, uncomplicated; Z98.890 Other specified postprocedural states; Z79.82 Long term (current) use of aspirin; Z79.02 Long term (current) use of antithrombotics/antiplatelets; Z82.49 Family history of ischemic heart disease and other diseases of the circulatory system

== ENCOUNTER → 2016-08-17 | Outpatient (CLI) | payer OTHER ==
[~2016-08-17] MED LIST changes: +ASPI81TA28 PO; +BUSP15TA70 PO; +CLON0.5T3 PO; +CLOP1TAB15 PO; +COEN50CA2 PO; +CZR25 PO; +ESCI1TAB6 PO; +FLX10 PO; +LOSA1TAB PO; +LOSA50TA54 PO; +METH4PAK PO; +METO25TA56 PO; +NTRGSL/4 UT; +OMEG10007 PO; +OPTIRAY 320 IV PRN; +TYL325X PO; +VALS40TA2 PO
--- NOTE | 2016-08-17 12:56 | DIAGNOSTIC IMAGING REPORT ---
NECK CTA HISTORY: Coronary artery dissection. TECHNIQUE: Multiaxial CT images of the neck were performed following the intravenous administration of contrast to evaluate the major cervical vessels. Maximum intensity projection images were also obtained. All measurements were calculated based on NASCET criteria. COMPARISON STUDY: Chest CTA 08/12/16. FINDINGS: The aortic arch and proximal great vessels are widely patent. There is no significant stenosis, occlusion, or dissection identified within the bilateral common carotid, internal carotid, or vertebral arteries. IMPRESSION: No significant stenosis, occlusion, or dissection identified within the carotid or vertebral arteries. Electronically signed by: Alejandro Blackwood M.D. 08/17/2016 12:53 PM Dictated Date/Time: 08/17/2016 12:48 PM
--- NOTE | 2016-08-17 13:18 | DIAGNOSTIC IMAGING REPORT ---
CT ANGIOGRAM OF THE ABDOMEN AND PELVIS CLINICAL HISTORY: Coronary artery dissection. COMPARISON STUDY: Fluoroscopic upper GI series dated 05/25/2007. TECHNIQUE: Following the IV administration of 80 cc of Optiray 320, CT angiogram of the abdomen and pelvis was performed from the lung bases the proximal femora. Images are reviewed in the axial, sagittal, and coronal planes. 3-D MIPS images are created and assessed. IV contrast was administered without complication. CT DOSE: 448.82 mGy.cm FINDINGS: Lower chest: The heart is markedly enlarged and without pericardial effusion. The lung bases are clear noting dependent atelectasis. There is a tiny hiatal hernia. Liver: The contrast-enhanced liver is mildly enlarged, measuring 18.6 cm in length. Liver demonstrates imaged attenuation suggesting hepatic steatosis. There is no intrahepatic or ductal dilatation. The main portal veins appear patent. Gallbladder: Surgically absent noting clips in the gallbladder fossa. Spleen: Normal in size and attenuation noting heterogeneous arterial phase enhancement. Pancreas: Unremarkable. Adrenal glands: Unremarkable. Kidneys: The contrast enhanced kidneys are normal in size and without hydronephrosis. The kidneys enhance symmetrically. There is excreted contrast filling the renal collecting system and ureters. No evidence of urothelial lesion is seen within the renal pelvis bilaterally or along the course of the ureters. Abdominal aorta and iliac arteries: There is mild to moderate and age advanced atherosclerotic calcification of the abdominal aorta. The abdominal aorta and iliac arteries are normal in caliber and widely patent. No dissection is seen. Major branches of the abdominal aorta: The celiac trunk, superior mesenteric, and inferior mesenteric arteries are widely patent. Hepatic arterial anatomy is conventional. The splenic artery is patent. The renal arteries are widely patent bilaterally. A small accessory left renal artery is noted on image #[id number]. Bowel: The small bowel and colon are normal in course and caliber. The appendix is well-visualized and normal. Peritoneum: There is no intraperitoneal free air or abdominal ascites. Lymphadenopathy: There are prominent retroperitoneal lymph nodes which measure up to 6 mm short axis. These are not pathologically enlarged by size criteria. No pathologically enlarged lymph nodes are identified in the abdomen or pelvis. Pelvic viscera: The bladder, uterus, and adnexa are normal as visualized. There are bilateral ovarian follicles. There is trace free fluid in the cul-de-sac. Skeletal structures: No destructive bony lesions are seen. IMPRESSION: 1. Unremarkable CT angiogram of the abdominal aorta noting age advanced atherosclerotic disease. No dissection is seen. 2. Unremarkable CT angiogram of the major branches of the abdominal aorta. 3. There is trace and likely physiologic free fluid in the cul-de-sac. 4. The liver is mildly enlarged and mild hepatic steatosis is suspected. 5. Cardiomegaly. 6. Additional findings as above. Electronically signed by: Drake Cardona M.D. 08/17/2016 1:16 PM Dictated Date/Time: 08/17/2016 1:08 PM
== END | disposition home or self-care (01) ==
LOC: C.CTS 11:06
PROVIDERS: ATTEND Internal Medicine Interventional Cardiology
DX: I25.42 Coronary artery dissection (principal); K76.0 Fatty (change of) liver, not elsewhere classified; I51.7 Cardiomegaly

== ENCOUNTER 2016-08-29 10:34 | Emergency (ER) | payer OTHER ==
[~2016-08-29] VITALS: Ht 154.3 cm; Wt 66.9 kg
[~2016-08-29 10:34] MED LIST changes: -ASPI81TA28 PO; -BUSP15TA70 PO; -CLON0.5T3 PO; -CLOP1TAB15 PO; -COEN50CA2 PO; -CZR25 PO; -ESCI1TAB6 PO; -FLX10 PO; -LOSA1TAB PO; -LOSA50TA54 PO; -METH4PAK PO; -METO25TA56 PO; -OMEG10007 PO; -OPTIRAY 320 IV PRN; -VALS40TA2 PO
[2016-08-29 10:43] VITALS: Ht 154.3 cm; Wt 66.9 kg
[2016-08-29 11:00] VITALS: O2SAT 96
[2016-08-29 11:16] LABS: HEMATOCRIT 42.3 % (37-47); MEAN CELL VOLUME 93.4 fL (80-100); MEAN CORPUSCULAR HEMOGLOBIN 31.1 pg (25-34); MEAN CORPUSCULAR HGB CONC 33.3 g/dl (32-36); MEAN PLATELET VOLUME 11.8 fL (7.4-10.4); PLATELET COUNT 180 K/uL (130-400); RED BLOOD COUNT 4.53 M/uL (4.2-5.4); WHITE BLOOD COUNT 9.94 K/uL (4.8-10.8)
--- NOTE | 2016-08-29 11:23 | DIAGNOSTIC IMAGING REPORT ---
CHEST ONE VIEW PORTABLE CLINICAL HISTORY: hypotension DIZZINESS COMPARISON STUDY: 08/12/2016 FINDINGS: The cardiac and mediastinal contours are normal. There is no evidence of focal pulmonary consolidation. There is no evidence of failure. No pleural effusions are visualized.[ IMPRESSION: No active disease in the chest. Electronically signed by: Jackson Bueno M.D. 08/29/2016 11:21 AM Dictated Date/Time: 08/29/2016 11:21 AM
[2016-08-29 11:27] LABS: PARTIAL THROMBOPLASTIN RATIO 1.1; PROTHROMBIN TIME (PATIENT) 10.4 SECONDS (9.0-12.0)
[2016-08-29 11:33] LABS: BUN/CREATININE RATIO 16.1 (10-20); CALCIUM 9.2 mg/dl (8.5-10.1); CREATININE 0.67 mg/dl (0.60-1.20); POTASSIUM 4.2 mmol/L (3.5-5.1)
[2016-08-29 11:38] LABS: ALB/GLOB RATIO 1.3 (0.9-2); CKMB/CK RATIO 1.6 (0-3.0)
[2016-08-29] MEDS ORDERED: DiphenhydrAMINE HCL 50 MG/ML VIAL IV STA (11:47)
[2016-08-29] MEDS ORDERED: PROCHLORPERAZINE 5 MG/ML 2 ML VIAL IV STA (11:47)
[2016-08-29] MEDS ORDERED: KETOROLAC TROMETHAMINE 30 MG/ML VIAL IV STA (11:47)
[2016-08-29] MEDS ORDERED: SODIUM CHLORIDE 0.9% 1000ML 1,000 ML IV STA (11:47)
[2016-08-29] MEDS ORDERED: OPTIRAY 320 IV PRN (12:00)
--- NOTE | 2016-08-29 12:53 | DIAGNOSTIC IMAGING REPORT ---
CHEST COMBO ANGIO DISSECTION CLINICAL HISTORY: Chest pain, dizziness and hypotension. History of aortic dissection. COMPARISON STUDY: Chest CT August 12, 2016. TECHNIQUE: Unenhanced and arterial phase imaging of the chest was performed. Injection of 94 cc of Optiray 320 IV was uneventful. Sagittal and coronal reconstructed reviewed as well as maximal intensity projections on an independent 3-D workstation. FINDINGS: Caliber of the thoracic aorta is normal. There is no intramural hematoma. There is no evidence of dissection of the thoracic aorta. The size of the heart is normal. There is no pericardial effusion. Central airways are patent. No consolidation to suggest pneumonia. No pneumothorax or pleural effusion is present. Bony thorax and upper abdomen are unremarkable. The gallbladder is surgically absent. IMPRESSION: 1. No thoracic aortic dissection. 2. No acute intrathoracic findings. Electronically signed by: Hima Bui M.D. 08/29/2016 12:51 PM Dictated Date/Time: 08/29/2016 12:41 PM
--- NOTE | 2016-08-29 13:13 | EMERGENCY ROOM VISIT NOTE ---
History Report prepared by Jose: Malou Clarke Under the Supervision of: Dr. Cheng Ovalle M.D. First contact with patient: 11:34 Chief Complaint: HYPOTENSION Stated Complaint: LOW BLOOD PRESSURE, DIZZY History of Present Illness The patient is a 41 year old female who presents to the Emergency Room with complaints of a worsening frontal headache starting about an hour and a half ago this morning. The patient reports a gradual onset of the headache. She denies any history of similar headaches. She does not think it is the worst headache of her life. She denies any pain with movement of her neck. She was referred to the Emergency Room from cardiac rehab for concerns about low blood pressure. She also complains of dizziness with standing up. She reports an intermittent, short, stabbing pain in her chest and left shoulder. She had an episode of abdominal pain this morning. She has a history of dissection which is being managed by monitoring her blood pressure medication. The patient denies fevers, chills, runny nose, sinus pressure, cough, congestion, or any other complaints. Source of History: patient Onset: about an hour and a half ago Position: head (frontal) Timing: worsening Associated Symptoms: + abdominal pain, + chest pain, No chills, No cough, No fevers Review of Systems See HPI for pertinent positives & negatives. A total of 10 systems reviewed and were otherwise negative. Past Medical & Surgical Medical Problems: (1) Chest pain Surgical Problems: (1) S/P cholecystectomy Family History Gallbladder disease Heart disease Social History Smoking Status: Former Smoker Alcohol Use: occasionally Drug Use: none Marital Status: Housing Status: lives with family Occupation Status: employed Current/Historical Medications Scheduled Aspirin (Aspirin EC Low Dose), 81 MG PO QAM Clopidogrel Bisulfate (Clopidogrel), 75 MG PO QAM Metoprolol Tartrate (Lopressor), 12.5 MG PO BID Multiple Vitamin (Multivitamin), 1 TAB PO DAILY Nitroglycerin (Nitrostat), 0.4 MG UT PRN Valsartan (Diovan), 1 TAB PO DAILY Scheduled PRN Alprazolam (Xanax), 0.25 MG PO Q8 PRN for Anxiety Allergies Coded Allergies: No Known Allergies (Unverified , 08/29/16) Physical Exam Vital Signs Date Time Temp Pulse Resp B/P Pulse Ox O2 Delivery O2 Flow Rate FiO2 08/29/16 16:13 37.3 78 18 124/69 100 08/29/16 14:16 66 16 101/62 100 08/29/16 12:29 73 17 115/60 98 08/29/16 11:01 71 125/88 79 119/84 80 134/63 08/29/16 11:00 96 Room Air 08/29/16 10:43 36.7 88 18 122/89 99 Room Air 130/80 Physical Exam GENERAL: Patient is a healthy-appearing well-nourished HEAD: Normocephalic atraumatic EYES: Ocular movements intact pupils equal and react to light OROPHARYNX mucous membranes are moist no exudates present no erythema or edema present NECK: Supple no nuchal rigidity. No evidence of meningitis or encephalitis on exam. CHEST: Good equal expansion LUNGS: Clear and equal to auscultation CARDIAC: Normal S1 and S2 ABDOMEN: Soft nontender no guarding BACK: No CVA tenderness EXTREMITIES: No pain upon palpation normal muscle strength in all groups no clubbing cyanosis or edema NEURO: Patient is following commands is answering questions appropriately. Alert and oriented x3 Cranial Nerves 2-12 grossly intact Medical Decision & Procedures ER Provider Diagnostic Interpretation: X-ray results as stated below per interpretation by me and the radiologist: CHEST ONE VIEW PORTABLE CLINICAL HISTORY: hypotension DIZZINESS COMPARISON STUDY: 08/12/2016 FINDINGS: The cardiac and mediastinal contours are normal. There is no evidence of focal pulmonary consolidation. There is no evidence of failure. No pleural effusions are visualized.[ IMPRESSION: No active disease in the chest. Electronically signed by: Jackson Bueno M.D. 08/29/2016 11:21 AM Dictated Date/Time: 08/29/2016 11:[address] results as stated below per my review and radiologist interpretation: CHEST COMBO ANGIO DISSECTION CLINICAL HISTORY: Chest pain, dizziness and hypotension. History of aortic dissection. COMPARISON STUDY: Chest CT August 12, 2016. TECHNIQUE: Unenhanced and arterial phase imaging of the chest was performed. Injection of 94 cc of Optiray 320 IV was uneventful. Sagittal and coronal reconstructed reviewed as well as maximal intensity projections on an independent 3-D workstation. FINDINGS: Caliber of the thoracic aorta is normal. There is no intramural hematoma. There is no evidence of dissection of the thoracic aorta. The size of the heart is normal. There is no pericardial effusion. Central airways are patent. No consolidation to suggest pneumonia. No pneumothorax or pleural effusion is present. Bony thorax and upper abdomen are unremarkable. The gallbladder is surgically absent. IMPRESSION: 1. No thoracic aortic dissection. 2. No acute intrathoracic findings. Electronically signed by: Hima Bui M.D. 08/29/2016 12:51 PM Dictated Date/Time: 08/29/2016 12:41 PM Laboratory Results 08/29/16 11:00 08/29/16 11:00 Test 08/29/16 11:00 08/29/16 11:13 Red Blood Count 4.53 M/uL (4.2-5.4) Mean Corpuscular Volume 93.4 fL (80-100) Mean Corpuscular Hemoglobin 31.1 pg (25-34) Mean Corpuscular Hemoglobin Concent 33.3 g/dl (32-36) RDW Standard Deviation 43.0 fL (36.4-46.3) RDW Coefficient of Variation 12.6 % (11.5-14.5) Mean Platelet Volume 11.8 fL (7.4-10.4) Prothrombin Time 10.4 SECONDS (9.0-12.0) Prothromb Time International Ratio 1.0 (0.9-1.1) Activated Partial Thromboplast Time 27.9 SECONDS (21.0-31.0) Partial Thromboplastin Ratio 1.1 Anion Gap 5.0 mmol/L (3-11) Est Creatinine Clear Calc Drug Dose 96.1 ml/min Estimated GFR () 126.5 Estimated GFR (Non- 109.2 BUN/Creatinine Ratio 16.1 (10-20) Calcium Level 9.2 mg/dl (8.5-10.1) Total Bilirubin 0.3 mg/dl (0.2-1) Aspartate Amino Transf (AST/SGOT) 15 U/L (15-37) Alanine Aminotransferase (ALT/SGPT) 30 U/L (12-78) Alkaline Phosphatase 63 U/L (45-117) Total Creatine Kinase 58 U/L (26-192) Creatine Kinase MB 0.9 ng/ml (0.5-3.6) Creatine Kinase MB Ratio 1.6 (0-3.0) Total Protein 7.9 gm/dl (6.4-8.2) Albumin 4.4 gm/dl (3.4-5.0) Globulin 3.5 gm/dl (2.5-4.0) Albumin/Globulin Ratio 1.3 (0.9-2) Bedside Troponin I 0.020 ng/ml (0-0.045) Labs reviewed by ED physician. Medications Administered Medications (Trade) Dose Ordered Sig/Sneha Route Start Time Stop Time Status Last Admin Dose Admin Sodium Chloride (Nss 1000ml) 1,000 ml @ 999 mls/hr Q1H1M STAT IV 08/29/16 11:47 08/29/16 12:47 DC 08/29/16 12:26 999 MLS/HR Ketorolac Tromethamine (Toradol Inj) 30 mg NOW STAT IV 08/29/16 11:47 08/29/16 11:50 DC 08/29/16 12:26 30 MG Prochlorperazine Edisylate (Compazine Inj) 5 mg NOW STAT IV 08/29/16 11:47 08/29/16 11:50 DC 08/29/16 12:26 5 MG Diphenhydramine HCl (Benadryl Inj) 50 mg NOW STAT IV 08/29/16 11:47 08/29/16 11:50 DC 08/29/16 12:26 50 MG ECG Indication: other (headache; hypotension) Rate (beats per minute): 69 Rhythm: normal sinus Findings: no acute ischemic change, no ectopy ED Course 1134: Past medical records reviewed. The patient was evaluated in room B04B. A complete history and physical examination was performed. 1147: Benadryl Inj 50 mg IV, Compazine Inj 5 mg IV, Toradol Inj 30 mg IV, Sodium Chloride 1000 ml @ 999 mls/hr IV 1401: Upon reexamination the patient is resting comfortably. I discussed results and treatment plan with the patient. She verbalizes agreement and understanding. The patient is ready for discharge. Medical Decision Differential diagnosis: Etiologies such as migraine headache, meningitis, sinusitis, CO exposure, ICH, SAH, infection, tumor, headache, sinus thrombosis, arterial dissection, as well as others were entertained. This is a 41-year-old female with a recent diagnosis of coronary artery dissection that now presents emergency department after becoming hypotensive at cardiac rehabilitation today. Upon arrival to the emergency department the patient is not hypotensive. She is complaining of headache, chest pain, abdominal pain. Based on the patient's past medical history the patient was sent for CT dissection study however this was noted to be normal. In addition the patient also has a normal EKG as well as normal cardiac enzymes. The patient was given a migraine, cocktail which included Toradol Compazine and Benadryl repeat examination revealed improvement patient's symptoms. The patient has no evidence of meningitis encephalitis on examination. I do feel that she is well enough to be discharged home for follow-up with a primary care physician. Patient was in agreement with the treatment plan. Impression Primary Impression: Hypotension Scribe Attestation The scribe's documentation has been prepared under my direction and personally reviewed by me in its entirety. I confirm that the note above accurately reflects all work, treatment, procedures, and medical decision making performed by me. Departure Information Dispostion Home / Self-Care Referrals Leonel Morgan M.D. (PCP) Forms HOME CARE DOCUMENTATION FORM, IMPORTANT VISIT INFORMATION, WORK / SCHOOL INSTRUCTIONS Patient Instructions Hypotension Dc, My [facility] Additional Instructions Increase fluids next 48 hours You have been examined and treated today on an emergency basis only. This is not a substitute for, or an effort to provide, complete comprehensive medical care. It is impossible to recognize and treat all injuries or illnesses in a single emergency department visit. It is therefore important that you follow up closely with Dr Morgan. Call as soon as possible for an appointment. Thank you for your time and consideration. I look forward to speaking with you again soon. Please don't hesitate to call us if you have any questions. Problem Qualifiers Primary Impression: Hypotension Hypotension type: unspecified hypotension type Qualified Codes: I95.9 - Hypotension, unspecified
[2016-08-29] MEDS ORDERED: VALS40TA2 PO (13:24)
[2016-08-29 16:13] VITALS: BP 124/69; PULSE 78; TEMP 37.3; O2SAT 100
== END 2016-08-29 16:10 | disposition home or self-care (01) ==
LOC: C.EDB 10:37
DX: I95.9 Hypotension, unspecified (principal); Z90.49 Acquired absence of other specified parts of digestive tract; Z87.891 Personal history of nicotine dependence; Z79.82 Long term (current) use of aspirin; Z79.899 Other long term (current) drug therapy; Z83.79 Family history of other diseases of the digestive system; Z82.49 Family history of ischemic heart disease and other diseases of the circulatory system

== ENCOUNTER 2016-09-05 21:33 | Observation (INO) | payer OTHER ==
[~2016-09-05] VITALS: Ht 154.3 cm; Wt 66.7 kg
[~2016-09-05 21:33] MED LIST changes: -ASPI81TA28 PO; -BUSP15TA70 PO; -CLON0.5T3 PO; -CLOP1TAB15 PO; -COEN50CA2 PO; -CZR25 PO; -ESCI1TAB6 PO; -FLX10 PO; -LOSA1TAB PO; -LOSA50TA54 PO; -METH4PAK PO; -METO25TA56 PO; -OMEG10007 PO
--- NOTE | 2016-09-05 22:59 | EMERGENCY ROOM VISIT NOTE ---
History Report prepared by Jose: Matt Velasquez Under the Supervision of: Dr. Ernesto Perez M.D. First contact with patient: 22:42 Chief Complaint: CHEST PAIN Stated Complaint: CHEST PAIN Nursing Triage Summary: patient to ed via triage for chest pain, states "about 30 minutes ago, I took my metoprolol and started having chest pain, like a burning, into my left arm. I had an aortic dissection in july and go to cardiac rehab for that." History of Present Illness The patient is a 41 year old female who presents to the Emergency Room with complaints of sudden onset left sided chest pain that occurred at 2130, 1 hour and 15 minutes prior to arrival. The patient states that she was laying down after taking her Metoprolol and felt a pain "shoot" through her chest into her left arm. The patient is now complaining of numbness in her face and left arm, and notes that the left side of her body feels unusual in general. She also notes being dizzy currently. She denies experiencing any shortness of breath or weakness. The patient does have a history of aortic dissection and is currently attending cardiac rehab. She is currently on Plavix and Aspirin. The patient made note of several medications that she has been stopping over the past couple of months. Source of History: patient Onset: 1 hr 15 min VICE PRESIDENT QUALITY Position: chest (Left) Quality: other ("shooting" ) Associated Symptoms: + numbness, No SOB Note: Patient notes dizziness, left sided numbness Review of Systems See HPI for pertinent positives & negatives. A total of 10 systems reviewed and were otherwise negative. Past Medical & Surgical Medical Problems: (1) Chest pain (2) Paresthesia of left arm (3) Unilateral facial paresis Surgical Problems: (1) S/P cholecystectomy Family History Gallbladder disease Heart disease Social History Smoking Status: Current Every Day Smoker Alcohol Use: occasionally Drug Use: none Marital Status: Housing Status: lives with family Occupation Status: employed Current/Historical Medications Scheduled Aspirin (Aspirin Ec), 81 MG PO DAILY Buspirone Hcl (Buspar), 7.5 MG PO DIRECTED Clopidogrel (Plavix), 75 MG PO DAILY Metoprolol Tartrate (Lopressor) (Lopressor), 12.5 MG PO BID Scheduled PRN Alprazolam (Xanax), 0.25 MG PO Q8 PRN for Anxiety Allergies Coded Allergies: No Known Allergies (Unverified , 09/05/16) Physical Exam Vital Signs Date Time Temp Pulse Resp B/P Pulse Ox O2 Delivery O2 Flow Rate FiO2 09/06/16 03:00 121/59 09/06/16 02:45 76 21 95 09/06/16 02:30 113/63 09/06/16 02:15 92 17 94 09/06/16 02:10 78 18 09/06/16 02:00 129/76 09/06/16 01:40 78 22 96 09/06/16 01:30 111/71 09/06/16 01:10 84 23 96 09/06/16 01:05 78 21 96 09/06/16 01:00 138/64 09/06/16 01:00 37.1 84 16 138/64 97 09/06/16 00:30 139/93 09/06/16 00:27 135/66 09/06/16 00:23 153/59 09/06/16 00:13 84 16 97 09/05/16 23:43 83 14 97 09/05/16 23:38 85 172/98 98 Room Air 09/05/16 23:33 83 19 98 09/05/16 23:03 79 15 09/05/16 22:48 153/79 09/05/16 22:33 70 15 96 09/05/16 22:04 70 09/05/16 22:03 68 17 98 09/05/16 21:45 98 Room Air 09/05/16 21:43 96 Room Air 09/05/16 21:42 147/89 09/05/16 21:42 37.1 72 20 147/89 98 Room Air Physical Exam GENERAL: Patient is anxious appearing and in minimal distress. HEENT: No acute trauma, normocephalic atraumatic, mucous membranes moist, no nasal congestion, no scleral icterus. NECK: No stridor, no adenopathy, no meningismus, trachea is midline. LUNGS: No dyspnea. Clear to auscultation and equal bilaterally. No wheeze, no rhonchi. HEART: Regular rate and rhythm. No murmurs, rubs, gallops appreciated. ABDOMEN: Soft, nontender, bowel sounds positive, no masses appreciated, no peritonitis. BACK: No midline tenderness, no CVA tenderness EXTREMITIES: Normal motion all extremities, no cyanosis, no edema. NEUROLOGIC: Alert and oriented, no acute motor or sensory deficits, no focal weakness, cranial nerves grossly intact. SKIN: No rash, no jaundice, no diaphoresis. Medical Decision & Procedures ER Provider Diagnostic Interpretation: CHEST X-RAY: X ray results are stated below per my interpretation: Chest: 1 view: No infiltrate, no effusion, normal cardiac border. Similar to previous. Laboratory Results 09/05/16 21:48 Red Blood Count 4.35, Mean Corpuscular Volume 92.9, Mean Corpuscular Hemoglobin 31.7, Mean Corpuscular Hemoglobin Concent 34.2, Mean Platelet Volume 12.0, Neutrophils (%) (Auto) 47.1, Lymphocytes (%) (Auto) 44.0, Monocytes (%) (Auto) 6.0, Eosinophils (%) (Auto) 2.4, Basophils (%) (Auto) 0.1, Neutrophils # (Auto) 3.91, Lymphocytes # (Auto) 3.66, Monocytes # (Auto) 0.50, Eosinophils # (Auto) 0.20, Basophils # (Auto) 0.01 09/05/16 21:48 Test 09/05/16 21:48 White Blood Count 8.31 K/uL (4.8-10.8) Red Blood Count 4.35 M/uL (4.2-5.4) Hemoglobin 13.8 g/dL (12.0-16.0) Hematocrit 40.4 % (37-47) Mean Corpuscular Volume 92.9 fL (80-100) Mean Corpuscular Hemoglobin 31.7 pg (25-34) Mean Corpuscular Hemoglobin Concent 34.2 g/dl (32-36) Platelet Count 173 K/uL (130-400) Mean Platelet Volume 12.0 fL (7.4-10.4) Neutrophils (%) (Auto) 47.1 % Lymphocytes (%) (Auto) 44.0 % Monocytes (%) (Auto) 6.0 % Eosinophils (%) (Auto) 2.4 % Basophils (%) (Auto) 0.1 % Neutrophils # (Auto) 3.91 K/uL (1.4-6.5) Lymphocytes # (Auto) 3.66 K/uL (1.2-3.4) Monocytes # (Auto) 0.50 K/uL (0.11-0.59) Eosinophils # (Auto) 0.20 K/uL (0-0.5) Basophils # (Auto) 0.01 K/uL (0-0.2) RDW Standard Deviation 43.0 fL (36.4-46.3) RDW Coefficient of Variation 12.6 % (11.5-14.5) Immature Granulocyte % (Auto) 0.4 % Immature Granulocyte # (Auto) 0.03 K/uL (0.00-0.02) D-Dimer 190 ug/L FEU (0-500) Anion Gap 8.0 mmol/L (3-11) Est Creatinine Clear Calc Drug Dose 85.2 ml/min Estimated GFR () 114.8 Estimated GFR (Non- 99.0 BUN/Creatinine Ratio 14.5 (10-20) Calcium Level 9.3 mg/dl (8.5-10.1) Magnesium Level 2.3 mg/dl (1.8-2.4) Total Creatine Kinase 65 U/L (26-192) Creatine Kinase MB 1.0 ng/ml (0.5-3.6) Creatine Kinase MB Ratio 1.5 (0-3.0) Troponin I < 0.015 ng/ml (0-0.045) Laboratory results as reviewed by me. Medications Administered Medications (Trade) Dose Ordered Sig/Sneha Route Start Time Stop Time Status Last Admin Dose Admin Labetalol HCl (Normodyne IV) 10 mg NOW STAT IV 09/06/16 00:09 09/06/16 00:10 DC 09/06/16 00:24 10 MG Lorazepam (Ativan Inj) 0.5 mg NOW STAT IV 09/06/16 00:09 09/06/16 00:10 DC 09/06/16 00:22 0.5 MG ECG Indication: chest pain Rate (beats per minute): 77 Rhythm: sinus with SA Findings: no acute ischemic change, no ectopy ED Course 2244: The patient was evaluated in room B11. A complete history and physical exam was performed. 2336: I checked on the patient at this time. She is becoming increasing anxious. Her BP is increasing. 2346: I discussed the case with Dr. Jo - [facility] Hospitalist, he will evaluate the patient for further treatment. 0009: Ordered Lorazepam 0.5 mg IV, Labetalol HCl 10 mg IV. Medical Decision Differential: Cardiac Ischemia (STEMI, NSTEMI, Unstable Angina, etc), Aortic Dissection, Arrhythmia, Pulmonary Embolism, Pneumonia, Pneumothorax, MSK, Infectious, Pericarditis/Myocarditis, Esophageal Rupture, Gastrointestinal, amongst other pathologies entertained. 41 yr old female with recent descending aortic dissection arrives with complaint of brief episode left chest pain radiating to left arm which resolved , then was followed by left facial/arm paresthesias. She is quite anxious appearing. No neuro deficit by examination. EKG without ischemia and Trop negative. CXR without blown mediastinum and unchanged from previous. She has had several CTs over the last few weeks. Of note HTN started trending up thus Labetalol ordered along with some ativan. Will hold on CT head for now as she will need MRI. Also hold on CTA neck as this can be done with MRA at same time as head. She has no exam findings of stroke and with recent dissection, vague start time, I feel that she would not be TPA candidate and thus did not call stroke alert. Patient will be brought in to medical team for further work-up and evaluation. Consults Time Called: [phone] Consulting Physician: Dr. Deysi DUMONT Hospitalist Returned Call: [phone] I discussed the case with Dr. Deysi DUMONT Hospitalist, he will evaluate the patient for further treatment. Impression Primary Impression: Facial paresthesia Additional Impressions: Paresthesia of left arm Hypertensive emergency Scribe Attestation The scribe's documentation has been prepared under my direction and personally reviewed by me in its entirety. I confirm that the note above accurately reflects all work, treatment, procedures, and medical decision making performed by me. Departure Information Dispostion Being Evaluated By Hospitalist Referrals Leonel Morgan M.D. (PCP) Patient Instructions My [facility] Stroke History Stroke t-PA Criteria Reviewed Does NOT meet criteria for t-PA Reason t-PA Not Given Treatment not indicated, Contraindicated (Hx of Aortic Dissection, Vague and limited symptoms) Problem Qualifiers
[2016-09-05 23:09] LABS: BASO % 0.1 %; BASO ABS # 0.01 K/uL (0-0.2); COMPLETE YES; EOS % 2.4 %; HEMATOCRIT 40.4 % (37-47); IG% 0.4 %; LYMPH ABS # 3.66 K/uL (1.2-3.4); MEAN CELL VOLUME 92.9 fL (80-100); MEAN CORPUSCULAR HEMOGLOBIN 31.7 pg (25-34); MEAN CORPUSCULAR HGB CONC 34.2 g/dl (32-36); NEUT % 47.1 %; PLATELET COUNT 173 K/uL (130-400); RED BLOOD COUNT 4.35 M/uL (4.2-5.4); WHITE BLOOD COUNT 8.31 K/uL (4.8-10.8)
[2016-09-05 23:20] LABS: BLOOD UREA NITROGEN 11 mg/dl (7-18); BUN/CREATININE RATIO 14.5 (10-20); CALCIUM 9.3 mg/dl (8.5-10.1); CARBON DIOXIDE 28 mmol/L (21-32); CHLORIDE 111 mmol/L (98-107); CREATININE 0.75 mg/dl (0.60-1.20); GLUCOSE 113 mg/dl (70-99); MAGNESIUM 2.3 mg/dl (1.8-2.4); POTASSIUM 3.5 mmol/L (3.5-5.1); SODIUM 147 mmol/L (136-145)
[2016-09-05 23:26] LABS: CKMB/CK RATIO 1.5 (0-3.0)
[2016-09-05] MEDS ORDERED: CLOP1TAB15 PO (23:39)
[2016-09-05] MEDS ORDERED: METO25TA56 PO (23:41)
[2016-09-05] MEDS ORDERED: ASPI81TA28 PO (23:42)
[2016-09-05] MEDS ORDERED: ALPR-411 PO (23:44)
[2016-09-05] MEDS ORDERED: BUSP15TA70 PO (23:45)
[2016-09-06] MEDS ORDERED: LORAZEPAM 2 MG/ML 1 ML VIAL IV STA (00:09)
[2016-09-06] MEDS ORDERED: LABETALOL HCL IV 5 MG/ML 20ML IV STA (00:09)
[2016-09-06] MEDS ORDERED: MoRPHine SULFATE 4 MG/ML 1 ML CARP\\VIAL IV PRN (00:30)
[2016-09-06] MEDS ORDERED: MoRPHine SULFATE 2 MG/ML CARP IV PRN (00:30)
[2016-09-06] MEDS ORDERED: ZOLPIDEM TARTRATE 5 MG TAB PO PRN (00:30)
[2016-09-06] MEDS ORDERED: ALPRAZOLAM 0.25 MG TAB PO PRN (00:30)
[2016-09-06] MEDS ORDERED: TRAMADOL HCL 50 MG TAB PO PRN ×2 (00:30)
[2016-09-06] MEDS ORDERED: ONDANSETRON INJ 2 MG/ML 2 ML VIAL IV PRN (00:30)
[2016-09-06] MEDS ORDERED: ACETAMINOPHEN 325 MG TAB PO PRN (00:30)
[2016-09-06] MEDS ORDERED: IV FLUIDS COMPLETED PRN (02:30)
[2016-09-06 04:47] VITALS: BP 125/63; PULSE 71; TEMP 36.9; O2SAT 95; Ht 154.3 cm; Wt 66.7 kg
[2016-09-06] MEDS ORDERED: GADAVIST IV PRN (05:00)
[2016-09-06] MEDS ORDERED: SODIUM CHLORIDE 0.45% 1000ML 1,000 ML IV SCH (05:00)
--- NOTE | 2016-09-06 06:08 | History and Physical ---
History & Physical Date & Time of Service: September 06, 2016 at 05:51. Date of examination was 09/05/2016. Chief Complaint: Paresthesia Of Left Arm, Unilateral Facial Paresis Primary Care Physician: Leonel Morgan M.D. History of Present Illness Source: patient, family, spouse The patient is a 41-year-old female who presents to the emergency department with the complaint of sudden onset of left-sided chest pain, left facial tingling and left arm numbness that began around 2130 hrs., approximately 1 hour 15 minutes prior to arrival, after taking her metoprolol evening dose. In the emergency department, the left facial and left arm tingling/numbness persisted, and she developed persistent dizziness shortly after the initial symptoms as well. She is presently attending cardiac rehabilitation associated with history of aortic dissection, and is taking as directed Plavix and aspirin. She has been following with Dr. Wagner in cardiology, and reports that her losartan medication was discontinued, and she is placed on metoprolol tartrate 12.5 mg by mouth 2 times per day recently. Past Medical/Surgical History Surgical Problems: (1) S/P cholecystectomy Status: Resolved Family History Gallbladder disease Heart disease Social History Smoking Status: Current Every Day Smoker Smokeless Tobacco Use: No Alcohol Use: none Drug Use: none Marital Status: Housing status: lives with family Occupational Status: employed Multi-Drug Resistant Organisms History of MDRO: No Allergies Coded Allergies: No Known Allergies (Unverified , 09/05/16) Home Medications Scheduled Aspirin (Aspirin Ec), 81 MG PO DAILY Buspirone Hcl (Buspar), 7.5 MG PO DIRECTED Clopidogrel (Plavix), 75 MG PO DAILY Metoprolol Tartrate (Lopressor) (Lopressor), 12.5 MG PO BID Scheduled PRN Alprazolam (Xanax), 0.25 MG PO Q8 PRN for Anxiety Review of Systems Constitutional: + fatigue, No chills, No fever, No sweats, No weakness, No weight loss Eyes: No diplopia, No discharge, No eye pain, No problem reported, No redness, No worsening of vision ENT: No dental problems, No hearing loss, No nasal symptoms, No problem reported, No sore throat, No tinnitus, No trouble swallowing, No unusual epistaxis Respiratory: No cough, No dyspnea at rest, No dyspnea on exertion, No hemoptysis, No problem reported, No shortness of breath, No sputum, No wheezing Cardiovascular: + chest pain, No PND, No claudication, No edema, No orthopnea, No palpitations Abdomen: No GI bleeding, No constipation, No diarrhea, No nausea, No pain, No problem reported, No vomiting Musculoskeletal: No calf pain, No joint pain, No muscle pain, No problem reported, No swelling Genitourinary - Female: No dysmenorrhea, No dysuria, No hematuria, No menorrhagia, No metrorrhagia, No , No problem reported, No rash, No urinary frequency, No urinary incontinence, No urinary retention, No urinary urgency, No vaginal bleeding, No vaginal discharge, No vaginal itching, No vulvodynia Neurologic: + numbness/tingling, + vertigo, + weakness, No balance problems, No memory loss, No paralysis Psychiatric: + anxiety, No anhedonism, No depression symptoms, No insomnia, No substance abuse Endocrine: No excessive thirst, No excessive urination, No fatigue, No problem reported Hematologic / Lymphatic: No abnormal bleeding/bruising, No clotting problems, No night sweats, No problem reported, No swollen lymph nodes Integumentary: No bleeding, No color change, No itch, No new/changing skin lesions, No problem reported, No rash Allergic / Immunologic: No environmental allergies, No food allergies, No frequent infections, No hives, No pet sensitivities, No poor healing, No problem reported, No prolonged convalescence, No seasonal allergies Physical Exam Vital Signs Date Time Temp Pulse Resp B/P Pulse Ox O2 Delivery O2 Flow Rate FiO2 09/06/16 03:00 121/59 09/06/16 02:45 76 21 95 09/06/16 02:30 113/63 09/06/16 02:15 92 17 94 09/06/16 02:10 78 18 09/06/16 02:00 129/76 09/06/16 01:40 78 22 96 09/06/16 01:30 111/71 09/06/16 01:10 84 23 96 09/06/16 01:05 78 21 96 09/06/16 01:00 138/64 09/06/16 01:00 37.1 84 16 138/64 97 09/06/16 00:30 139/93 09/06/16 00:27 135/66 09/06/16 00:23 153/59 09/06/16 00:13 84 16 97 09/05/16 23:43 83 14 97 09/05/16 23:38 85 172/98 98 Room Air 09/05/16 23:33 83 19 98 09/05/16 23:03 79 15 09/05/16 22:48 153/79 09/05/16 22:33 70 15 96 09/05/16 22:04 70 09/05/16 22:03 68 17 98 09/05/16 21:45 98 Room Air 09/05/16 21:43 96 Room Air 09/05/16 21:42 147/89 09/05/16 21:42 37.1 72 20 147/89 98 Room Air General Appearance: WD/WN, + mild distress Head: normocephalic, atraumatic Eyes: normal inspection, PERRL, EOMI, sclerae normal ENT: normal ENT inspection, hearing grossly normal, pharynx normal Neck: supple, no adenopathy, thyroid normal, no JVD, no carotid bruits, trachea midline Respiratory/Chest: chest non-tender, lungs clear, normal breath sounds, no respiratory distress, no accessory muscle use Cardiovascular: regular rate, rhythm, no edema, no gallop, no JVD, no murmur, normal peripheral pulses Abdomen/GI: normal bowel sounds, non tender, soft, no organomegaly, no pulsatile mass Back: normal inspection, no CVA tenderness, no muscle spasm, normal range of motion Extremities/Musculoskelatal: normal inspection, no calf tenderness, normal capillary refill, no pedal edema, normal range of motion, non-tender 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, no motor/sensory deficits, alert, normal mood/affect, normal reflexes, oriented x 3 Skin: normal color, warm/dry, no rash Lymphatic: no adenopathy Diagnostics Laboratory Results Results Past 24 Hours Test 09/05/16 21:48 Range/Units White Blood Count 8.31 4.8-10.8 K/uL Red Blood Count 4.35 4.2-5.4 M/uL Hemoglobin 13.8 12.0-16.0 g/dL Hematocrit 40.4 37-47 % Mean Corpuscular Volume 92.9 80-100 fL Mean Corpuscular Hemoglobin 31.7 25-34 pg Mean Corpuscular Hemoglobin Concent 34.2 32-36 g/dl Platelet Count 173 130-400 K/uL Mean Platelet Volume 12.0 7.4-10.4 fL Neutrophils (%) (Auto) 47.1 % Lymphocytes (%) (Auto) 44.0 % Monocytes (%) (Auto) 6.0 % Eosinophils (%) (Auto) 2.4 % Basophils (%) (Auto) 0.1 % Neutrophils # (Auto) 3.91 1.4-6.5 K/uL Lymphocytes # (Auto) 3.66 1.2-3.4 K/uL Monocytes # (Auto) 0.50 0.11-0.59 K/uL Eosinophils # (Auto) 0.20 0-0.5 K/uL Basophils # (Auto) 0.01 0-0.2 K/uL RDW Standard Deviation 43.0 36.4-46.3 fL RDW Coefficient of Variation 12.6 11.5-14.5 % Immature Granulocyte % (Auto) 0.4 % Immature Granulocyte # (Auto) 0.03 0.00-0.02 K/uL D-Dimer 190 0-500 ug/L FEU Sodium Level 147 136-145 mmol/L Potassium Level 3.5 3.5-5.1 mmol/L Chloride Level 111 98-107 mmol/L Carbon Dioxide Level 28 21-32 mmol/L Anion Gap 8.0 3-11 mmol/L Blood Urea Nitrogen 11 7-18 mg/dl Creatinine 0.75 0.60-1.20 mg/dl Est Creatinine Clear Calc Drug Dose 85.2 ml/min Estimated GFR () 114.8 Estimated GFR (Non- 99.0 BUN/Creatinine Ratio 14.5 10-20 Random Glucose 113 70-99 mg/dl Calcium Level 9.3 8.5-10.1 mg/dl Magnesium Level 2.3 1.8-2.4 mg/dl Total Creatine Kinase 65 26-192 U/L Creatine Kinase MB 1.0 0.5-3.6 ng/ml Creatine Kinase MB Ratio 1.5 0-3.0 Troponin I < 0.015 0-0.045 ng/ml EKG EKG shows normal sinus rhythm with sinus arrhythmia at 77 bpm, there are no acute ST-T changes, no change compared to 08/29/2016. Impression Assessment and Plan Dizziness/left facial tingling/left arm numbness/fatigue--the patient will be admitted to the telemetry unit for serial cardiac enzymes, and cardiac rhythm monitoring. CT of the head was negative in the ED. We'll order an MRI brain combo, MRA neck combo, and MRA of the head without contrast. We'll continue her aspirin and Plavix. Aortic dissection history/hypertension/elevated blood pressure--she underwent a CT dissection study on August 29 that was negative, making dissection unlikely at this time. We'll consult her airborne missions systems Dr. Wagner for his input. We'll increase metoprolol tartrate from 12.5 mg by mouth twice a day to 25 mg by mouth twice a day starting in the a.m., as she has received labetalol 10 mg IV by ED staff hallie. Continue Aspirin 81 mg by mouth daily and clopidogrel 75 mg by mouth daily. Hypernatremia--sodium is mildly elevated at 147. We'll place on half normal saline at 75 ML ML's per hour, and recheck in the a.m. Anxiety--continue buspirone 0.5 mg by mouth twice a day. She would likely benefit from an increase, as she is understandably anxious due to her diagnosis of aortic dissection. Level of Care Telemetry Advanced Directives Existing Advance Directive: No Existing Living Will: No Existing Power of Journeyman Pipefitter: No Resuscitation Status FULL RESUSCITATION VTE Prophylaxis VTE Risk Assessment Done? Y/N: Yes Risk Level: Moderate Given or contraindicated: SCD's Social Service Consult None Apply
--- NOTE | 2016-09-06 06:35 | DIAGNOSTIC IMAGING REPORT ---
MR ANGIOGRAPHY OF THE [place] NO CONTRAST CLINICAL HISTORY: left facial and arm paresthesias COMPARISON STUDY: None. A 3-D [id number] MR angiographic sequence of the [place] was performed. Both the source and projection images were reviewed. There is no evidence of major intracranial branch occlusion. There is no evidence of intracranial stenosis. There are no lesions suspicious for aneurysm. IMPRESSION: Unremarkable MR angiography of the [place]. Electronically signed by: Jackson Bueno M.D. 09/06/2016 6:34 AM Dictated Date/Time: 09/06/2016 6:33 AM
--- NOTE | 2016-09-06 06:37 | DIAGNOSTIC IMAGING REPORT ---
NECK MRA HISTORY: left facial and arm paresthesias TECHNIQUE: [id number] and gadolinium-enhanced MRA of the neck was performed both before and after the intravenous administration of contrast. All measurements were calculated based on NASCET criteria. The patient was administered 6.5 cc of intravenous Gadavist. COMPARISON STUDY: None. FINDINGS: The aortic arch and proximal great vessels are widely patent. There is no significant stenosis, occlusion, or dissection identified within the bilateral common carotid, internal carotid, or vertebral arteries. IMPRESSION: No significant stenosis, occlusion, or dissection identified within the carotid or vertebral arteries. Electronically signed by: Jackson Bueno M.D. 09/06/2016 6:36 AM Dictated Date/Time: 09/06/2016 6:34 AM
--- NOTE | 2016-09-06 06:43 | DIAGNOSTIC IMAGING REPORT ---
MRI OF THE BRAIN WITHOUT AND WITH IV CONTRAST CLINICAL HISTORY: left facial and arm paresthesias mental status change COMPARISON STUDY: No previous studies for comparison. TECHNIQUE: Utilizing a 1.5 Leah magnet and dedicated coil, multiplanar, multiecho imaging of the brain was performed pre and postcontrast administration. IV administration of 8 mL of Gadavist contrast was uneventful. FINDINGS: Study is negative for an acute ischemic event. Signal characteristics of the cerebellar as well as cerebral hemispheres are unremarkable. Ventricular system is midline. Internal artery canals are symmetric. No evidence for abnormal postcontrast enhancement. IMPRESSION: Normal study. Electronically signed by: Ez Dillard M.D. 09/06/2016 6:42 AM Dictated Date/Time: 09/06/2016 6:41 AM
--- NOTE | 2016-09-06 06:47 | DIAGNOSTIC IMAGING REPORT ---
CHEST ONE VIEW PORTABLE CLINICAL HISTORY: Atypical chest pain COMPARISON STUDY: 08/29/2016 FINDINGS: The cardiac and mediastinal contours are normal. There is no evidence of focal pulmonary consolidation. There is no evidence of failure. No pleural effusions are visualized.[ IMPRESSION: No active disease in the chest. Electronically signed by: Jackson Bueno M.D. 09/06/2016 6:46 AM Dictated Date/Time: 09/06/2016 6:46 AM
[2016-09-06 07:16] VITALS: BP 112/73; PULSE 78; TEMP 36.9; O2SAT 98
[2016-09-06 08:29] LABS: HEMATOCRIT 36.3 % (37-47); MEAN CELL VOLUME 92.4 fL (80-100); MEAN CORPUSCULAR HEMOGLOBIN 31.3 pg (25-34); MEAN CORPUSCULAR HGB CONC 33.9 g/dl (32-36); MEAN PLATELET VOLUME 11.2 fL (7.4-10.4); PLATELET COUNT 153 K/uL (130-400); RED BLOOD COUNT 3.93 M/uL (4.2-5.4); WHITE BLOOD COUNT 7.11 K/uL (4.8-10.8)
[2016-09-06 09:00] LABS: BUN/CREATININE RATIO 12.8 (10-20); CALCIUM 8.8 mg/dl (8.5-10.1); CREATININE 0.69 mg/dl (0.60-1.20); POTASSIUM 3.4 mmol/L (3.5-5.1)
[2016-09-06] MEDS ORDERED: METOPROLOL TARTRATE 25 MG TAB PO SCH (09:00)
[2016-09-06] MEDS ORDERED: CLOPIDOGREL BISULFATE 75 MG TAB PO SCH (09:00)
[2016-09-06] MEDS ORDERED: BusPIRone 15 MG TAB PO SCH (09:00)
[2016-09-06] MEDS ORDERED: ASPIRIN 81 MG ECTAB PO SCH (09:00)
[2016-09-06 09:04] LABS: CKMB/CK RATIO 2.1 (0-3.0)
[2016-09-06] MEDS ORDERED: POTASSIUM CHLORIDE 10 MEQ TABCR PO ONE (09:45)
[2016-09-06] MEDS ORDERED: CYCLOBENZAPRINE HCL 10 MG TAB PO PRN (11:15)
[2016-09-06] MEDS ORDERED: CYCLOBENZAPRINE HCL 10 MG TAB PO ONE (11:45)
[2016-09-06 12:05] VITALS: BP 99/68; PULSE 71; TEMP 36.5; O2SAT 95
[2016-09-06] MEDS ORDERED: FLX10 PO (12:51)
--- NOTE | 2016-09-06 13:00 | Discharge Instructions ---
Discharge Instructions Date of Service September 06, 2016. Admission Reason for Admission: Paresthesia Of Left Arm, Unilateral Facial Paresis Discharge Discharge Diagnosis / Problem: Paresethesia, non-cardiac chest pain Discharge Goals Goal(s): Decrease discomfort, Improve function, Diagnostic testing, Therapeutic intervention Activity Recommendations Activity Limitations: resume your previous activity . Instructions / Follow-Up Instructions / Follow-Up You were admitted to the hospital after presenting with chest pain and numbness/ tingling in the left face and arm. You were monitored in a telemetry unit overnight, during which you remained in a normal sinus (regular) rhythm. Your EKGs did not show any ischemic changes, and your cardiac enzymes to assess for heart damage were negative. You were seen by Dr. Wagner who has cleared you for discharge from a cardiology standpoint. You also received extensive imaging of your head and neck to rule out ischemic events/stroke as the cause of your numbness and tingling. These images all came back normal. You are now medically stable for discharge. Medications: *You have been started on a medication called cyclobenzaprine (Flexeril), which is a muscle relaxant. Please take cyclobenzaprine 10 mg by mouth at bedtime as needed for muscle spasms/tightness. Please only take as needed; you do not have to take every night. A 1 week supply has been sent to your pharmacy. Common side effects of cyclobenzaprine are drowsiness and fatigue. DO NOT take before operating machinery/driving. *Continue your other home medications as prescribed. Follow up: *Please follow up with your primary care provider, Dr. Morgan, within 1 week of discharge regarding your hospital stay and the addition of cyclobenzaprine. *Continue your routine scheduled appointments with Dr. Wagner and cardiac rehab. Please seek medical attention if you experience fevers, chills, sweats, worsening/different chest pain, shortness of breath, nausea, vomiting, lightheadedness, loss of consciousness, numbness or tingling. Current Hospital Diet Patient's current hospital diet: AHA Diet (Heart Healthy) Discharge Diet Recommended Diet: AHA Diet (Heart Healthy) Pending Studies Studies pending at discharge: no Laboratory Results Hemoglobin A1c Test 07/22/16 05:37 Range/Units Estimated Average Glucose 103 mg/dl Hemoglobin A1c 5.2 4.5-5.6 % Lipid Panel Test 07/21/16 07:53 Range/Units Triglycerides Level 135 0-150 mg/dl Cholesterol Level 135 0-200 mg/dl HDL Cholesterol 43 mg/dl Cholesterol/HDL Ratio 3.1 LDL Cholesterol, Calculated 65 mg/dl Medical Emergencies . Who to Call and When: Medical Emergencies: If at any time you feel your situation is an emergency, please call 911 immediately. . Non-Emergent Contact Non-Emergency issues call your: Primary Care Provider, Labor Relations Consultant Call Non-Emergent contact if: you have a fever, you have any medication questions . Past History Medical & Surgical History: (1) Chest pain (2) Paresthesia of left arm (3) Facial paresthesia . "Provider Documentation" section prepared by Farideh Garcia. . VTE Core Measure Inpt VTE Proph given/why not?: SCD's
--- NOTE | 2016-09-06 13:51 | CARDIOLOGY CONSULTATION ---
DATE OF CONSULTATION: 09/06/2016 DATE OF CONSULTATION: 09/06/2016. CONSULTATION REQUESTED BY: Dr. Jo. REASON FOR CONSULTATION: Atypical chest pain. HISTORY OF PRESENT ILLNESS: Ms. 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 The patient's initial cardiac history began on July 20 when presented with constant left arm and shoulder pain that radiated to her neck. She was noted to have a troponin that peaked at 7.2 and echo which showed apical hypokinesis. She underwent a cardiac catheterization which showed severe diffuse narrowing in her mid LAD to apex which was thought most consistent with spontaneous coronary artery dissection. She was treated conservatively, has had additional workup including renal artery duplex, CTA of her neck, chest, abdomen and pelvis which did not show any evidence of fibromuscular dysplasia. Since this time, she has had 1 subsequent hospitalization approximately 4 weeks ago when presented with palpitations and chest discomfort after her metoprolol was held. She had no further symptoms while watched overnight and metoprolol was restarted with no recurrence of palpitations. Since that time, she has intermittently had chest discomfort. She states after she takes her metoprolol this is different than when she had at time of presentation. She admits to being very anxious about all that is going on and states that when she does get anxiety she feels pain up into her neck, hot feelings and worsened fatigue. She has been doing cardiac rehab with good days and bad days. She also endorses some mild diffuse joint pain. Yesterday had completed cardiac rehab and was doing well when all of the sudden developed the pain the numbness and tingling in her left side of her face and down into her arm. This was associated with prior atypical chest pain that she has previously had. She presented to the Emergency Department where EKG was unremarkable. Her initial troponins have been nondetectable and she has had no further events on telemetry. She states she continues to have mild numbness in her face. She has undergone a neurologic workup which included an unremarkable MRI/MRA of her head and neck. PAST MEDICAL HISTORY: 1. Coronary artery disease with spontaneous coronary artery dissection and NSTEMI in July of 2015. 2. Anxiety. 3. GERD. 4. Depression. FAMILY HISTORY: No history of premature coronary artery disease. Her grandmother and grandfather both had coronary artery disease with PA. SOCIAL HISTORY: She is . She works for the [employer] near [place]. She still smokes approximately half pack per day. She drinks occasional alcohol. HOME MEDICATIONS: Include Xanax, aspirin, BuSpar, clopidogrel and Metoprolol tartrate as well as aspirin 81. ALLERGIES: No known drug allergies. PHYSICAL EXAMINATION: VITAL SIGNS: Temperature 36.5, pulse 71, blood pressure 99/68. She is satting 95% on room air. GENERAL: The patient appears comfortable in no acute distress. HEAD, EYES, EARS, NOSE, AND THROAT: Sclerae are anicteric. Oropharynx is clear. Mucous membranes are moist. NECK: Supple with no lymphadenopathy. LUNGS: Clear to auscultation bilaterally. CARDIAC: She has a regular rate and rhythm with no murmurs, rubs or gallops. ABDOMEN: Soft, nontender, nondistended with positive bowel sounds. EXTREMITIES: Warm. She has intact distal pulses with no significant lower extremity edema. SKIN: Shows no rashes. NEUROLOGIC: Nonfocal. PSYCHIATRIC: She is alert and appropriate. LABORATORY DATA: Sodium 144, potassium 3.4, BUN 9, creatinine 0.7. Troponins have been negative x2. D-dimer was negative at 190 and white blood cell count 7.11, hemoglobin 36, platelets of 153. Chest x-ray showed no acute cardiopulmonary process. EKG shows sinus rhythm with no dynamic ST changes. IMPRESSION AND PLAN: 1. Focal facial and upper extremity numbness. 2. Atypical chest pain. 3. History of spontaneous coronary artery dissection with [id number] elevation myocardial infarction. 4. Significant anxiety. Ms. Matthews is here today with acute onset of focal neurologic symptoms and atypical chest pain. Her initial workup has been largely unremarkable with negative neuroimaging and negative cardiac biomarkers as well as unchanged EKG. At this time, very low suspicion for recurrent coronary event. In addition, no evidence of significant arrhythmia on telemetry. I do feel that there is any significant anxiety component to patient's current symptoms and she does admit to being very stressed about her recent illness. Reassurance again offered. At this time, I do not feel that additional cardiac workup is necessary and from a cardiac standpoint, it is okay for discharge when other issues are resolved. Will need close followup with Dr. Morgan's office in regards to her anxiety and can follow up with me in 1 month. I recommend that she continue on her current cardiac regimen including aspirin, Plavix, current dose of metoprolol as well to statin. She should also continue cardiac rehab. RICHARD
--- NOTE | 2016-09-06 13:52 | Discharge Summary ---
Discharge Summary Date of Service September 06, 2016. (Farideh Garcia ., JAQUI) Discharge Summary Admission Date: September 06, 2016 at 00:27 Discharge Date: September 06, 2016 Discharge Disposition: Home Principal Diagnosis: Chest pain, paresthesias Consultations: Cardiology--Dr. Wagner (Farideh Garcia ., JAQUI) Medication Reconciliation New Medications: Cyclobenzaprine HCl (Cyclobenzaprine HCl) 10 Mg Tab 10 MG PO HS PRN for spasm for 7 Days, #7 TAB Take 1 tablet by mouth at bedtime as needed for muscle spasm/neck pain. Continued Medications: Alprazolam (Xanax) 0.5 Mg Tab 0.25 MG PO Q8 PRN for Anxiety, TAB Aspirin (Aspirin Ec) 81 Mg Tab 81 MG PO DAILY Buspirone Hcl (Buspar) 15 Mg Tab 7.5 MG PO DIRECTED, TAB Clopidogrel (Plavix) 75 Mg Tab 75 MG PO DAILY, TAB Metoprolol Tartrate (Lopressor) (Lopressor) 25 Mg Tab 12.5 MG PO BID, TAB Referrals At Discharge Follow up Referrals: Family Practice Referral - Within 1 Week with Leonel Morgan M.D. Discharge Exam The patient denies any chest pain currently. She states that the chest pain she experiences is intermittent. It typically occurs in the center of her chest and then moves upward to her neck. She also sometimes has pain in the left side of her neck/shoulder. She experiences intermittent lightheadedness as well , although she denies any lightheadedness today. She states that her numbness/ tingling has resolved. She reports some shortness of breath that she states has been present since she was placed on Crestor, but she also states that it has been improving since stopping that medication. The patient denies fevers, chills, sweats, chest pain, palpitations, claudication, cough, wheezing, nausea , vomiting, abdominal pain, dysuria, hematuria, urinary retention, paralysis, weakness, numbness and tingling. Review of Systems: Constitutional: No chills, No fever, No sweats Eyes: No diplopia, No eye pain, No worsening of vision ENT: No hearing loss, No sore throat, No trouble swallowing Respiratory: + shortness of breath, No cough, No wheezing Cardiovascular: No chest pain, No claudication, No palpitations Abdomen: No nausea, No pain, No vomiting Musculoskeletal: + muscle pain (left trapezius/left neck), No calf pain, No joint pain Genitourinary - Female: No dysuria, No hematuria, No urinary retention Neurologic: No numbness/tingling, No paralysis, No weakness Integumentary: No color change, No itch, No rash Physical Exam: General Appearance: WD/WN, no apparent distress Eyes: normal inspection, PERRL, EOMI ENT: normal ENT inspection, hearing grossly normal, pharynx normal Neck: supple, no JVD, trachea midline Respiratory/Chest: lungs clear, normal breath sounds, no respiratory distress Cardiovascular: regular rate, rhythm, no gallop, no murmur Abdomen / GI: normal bowel sounds, non tender, soft Extremities: no calf tenderness, normal capillary refill, no pedal edema Neurologic/Psychiatric: alert, normal mood/affect, oriented x 3 Skin: normal color, warm/dry, no rash (Farideh Garcia ., PA-C) Hospital Course 41-year-old female with a 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 Chest pain, numbness/tingling, h/o NSTEMI secondary to SCAD--resolved -Admitted to telemetry for overnight observation. No acute events overnight, patient remained in sinus rhythm with heart rate in the 70s -Cardiac enzymes negative 3 -EKG shows no ischemic changes -CXR, MRI of the brain, MRA of the head and MRA of the neck, all negative for acute disease -Cardiology consulted, given history of spontaneous coronary artery dissection. Patient cleared from a cardiology standpoint by Dr. Wagner -Recent CT dissection study on 08/29/16 was negative -Patient with muscle spasms in neck/shoulders on day of discharge. Given cyclobenzaprine 10 mg PO qhs prn spasms on d/c -Continue metoprolol tartrate 12.5 mg PO BID, ASA and Plavix Anxiety--anxiety about her recent NSTEMI and dissection appear to be playing a large role in her current symptoms -Continue BuSpar 7.5 mg PO BID. Consider increasing dose -Ativan 0.25 mg PO q8h prn anxiety Hypernatremia--resolved -Sodium elevated at 147 on arrival -Placed on 1/2NSS at 75 cc/hr -Repeat sodium 144 Mild hypokalemia -Potassium 3.4 on 09/06 -Given KCl 10 mEq PO x 1 DVT prophylaxis -SCDs Code Status -Level I, FULL RESUSCITATION STATUS Total Time Spent: Greater than 30 minutes This includes examination of the patient, discharge planning, medication reconciliation, and communication with other providers. (Farideh Garcia ., PA-C) I agree with PA assessment and plan and have seen and examined pt myself Resting comfortably in bed Left chest pain resolved Likely secondary to anxiety Cardiology consulted VSS Labs reviewed Trops neg, unlikely coronary event OK for discharge home (Marco Antonio Espino, D.O.) Discharge Instructions Please refer to the electronic Patient Visit Report (Discharge Instructions) for additional information. (Farideh Garcia ., PA-C) Additional Copies To Leonel Morgan M.D.
[2016-09-06 14:18] VITALS: BP 99/68; PULSE 71; TEMP 36.5; O2SAT 95
[2016-09-06 15:10] LABS: CKMB/CK RATIO 1.5 (0-3.0)
== END 2016-09-06 16:18 | disposition home or self-care (01) ==
LOC: ENRESERVDT → ENRESERVTM → C.EDB 21:33 → C.2T 09-06 00:27
PROVIDERS: ADMIT Hospitalist; ATTEND Hospitalist
DX: R07.89 Other chest pain (principal); R20.9 Unspecified disturbances of skin sensation; I10 Essential (primary) hypertension; R42 Dizziness and giddiness; E87.6 Hypokalemia; E87.0 Hyperosmolality and hypernatremia; F41.9 Anxiety disorder, unspecified; Z79.82 Long term (current) use of aspirin; Z79.02 Long term (current) use of antithrombotics/antiplatelets; Z90.49 Acquired absence of other specified parts of digestive tract; Z82.49 Family history of ischemic heart disease and other diseases of the circulatory system; F17.200 Nicotine dependence, unspecified, uncomplicated; K21.9 Gastro-esophageal reflux disease without esophagitis; I25.2 Old myocardial infarction

== ENCOUNTER → 2016-09-05 | Outpatient (CLI) | payer OTHER ==
[~2016-09-05] MED LIST changes: +ASPI81TA28 PO; +BUSP15TA70 PO; +CLON0.5T3 PO; +CLOP1TAB15 PO; +COEN50CA2 PO; +CZR25 PO; +ESCI1TAB6 PO; +FLX10 PO; +LOSA1TAB PO; +LOSA50TA54 PO; -LPT40 PO; -LSN5 PO; +METH4PAK PO; +METO25TA56 PO; +OMEG10007 PO; -TYL325X PO; -ULT50X PO; +VALS40TA2 PO
[2016-09-05 12:51] LABS: ALT/SGPT 26 U/L (12-78); AST/SGOT 14 U/L (15-37); BLOOD UREA NITROGEN 10 mg/dl (7-18); BUN/CREATININE RATIO 15.6 (10-20); CALCIUM 9.2 mg/dl (8.5-10.1); CARBON DIOXIDE 27 mmol/L (21-32); CHLORIDE 109 mmol/L (98-107); CREATININE 0.62 mg/dl (0.60-1.20); GLUCOSE 92 mg/dl (70-99); POTASSIUM 4.2 mmol/L (3.5-5.1); SODIUM 143 mmol/L (136-145)
[2016-09-05 12:54] LABS: ALB/GLOB RATIO 1.3 (0.9-2); ALKALINE PHOSPHATASE 59 U/L (45-117)
== END | disposition home or self-care (01) ==
LOC: C.LABBFT 10:28
PROVIDERS: ATTEND Internal Medicine
DX: M79.1 Myalgia (principal)

== ENCOUNTER → 2016-09-09 | Outpatient (CLI) | payer OTHER ==
[~2016-09-09] MED LIST changes: -ASPEC81 PO; +ASPI81TA28 PO; +BUSP15TA70 PO; +CLON0.5T3 PO; +CLOP1TAB15 PO; +COEN50CA2 PO; +CZR25 PO; +ESCI1TAB6 PO; +FLX10 PO; +LOSA1TAB PO; +LOSA50TA54 PO; -LPR25 PO; +METH4PAK PO; +METO25TA56 PO; -MULTTAB58 PO; -NTRGSL/4 UT; +OMEG10007 PO; -PLV75 PO; -VALS40TA2 PO
== END | disposition home or self-care (01) ==
LOC: C.LAB1850 15:09
PROVIDERS: ATTEND Obstetrics & Gynecology
DX: L68.0 Hirsutism (principal)

== ENCOUNTER → 2016-09-09 | Outpatient (CLI) | payer OTHER ==
--- NOTE | 2016-09-23 13:34 | CODING QUERY NO DIAGNOSIS ---
TREATMENT RENDERED WITHOUT A DIAGNOSIS To promote full compliance with coding requirements relating to patient care, physician participation is requested in all cases of extract wringer uncertainty. Please assist us with providing a diagnosis/symptom for the test(s) below: A diagnosis/symptom was not documented on your Order. A valid diagnosis/symptom is required to bill all insurances. Please remember that we are unable to code a diagnosis of rule out, probable, possible, questionable, or suspected. Tests that require a diagnosis: * PAP SMEAR DIAGNOSIS: Provider Signature: Date: Thank you [employer] Once completed, please kindly fax back to [phone] For questions please call [phone]
== END | disposition home or self-care (01) ==
LOC: C.PAPS 08:58
PROVIDERS: ATTEND Obstetrics & Gynecology
DX: Z12.4 Encounter for screening for malignant neoplasm of cervix (principal); R87.618 Other abnormal cytological findings on specimens from cervix uteri

== ENCOUNTER → 2016-09-23 | Outpatient (CLI) | payer OTHER ==
--- NOTE | 2016-09-23 09:56 | DIAGNOSTIC IMAGING REPORT ---
LEFT SHOULDER 3 VIEWS CLINICAL HISTORY: Left shoulder pain. FINDINGS: 3 views of the left shoulder are obtained. No prior studies are available for comparison at the time of dictation. The skeletal structures are well mineralized. No fracture or dislocation is seen. The glenohumeral articulation is well-maintained. Mild productive degenerative change is noted at the acromioclavicular joint. The overlying soft tissues are within normal limits. Imaged left lung parenchyma appears clear. IMPRESSION: No acute bony abnormality is seen in the left shoulder. Electronically signed by: Drake Cardona M.D. 09/23/2016 9:55 AM Dictated Date/Time: 09/23/2016 9:54 AM
--- NOTE | 2016-09-23 09:57 | DIAGNOSTIC IMAGING REPORT ---
CERVICAL SPINE 2 OR 3 VIEWS CLINICAL HISTORY: Neck and shoulder pain COMPARISON STUDY: No previous studies for comparison. FINDINGS: The prevertebral soft tissues are normal. There are no acute fractures identified. There are degenerative changes most pronounced at the C4-5 C5-6 and C6-7 levels. IMPRESSION: 1. Moderate degenerative change 2. No fractures or subluxations identified Electronically signed by: Jackson Bueno M.D. 09/23/2016 9:55 AM Dictated Date/Time: 09/23/2016 9:55 AM
== END | disposition home or self-care (01) ==
LOC: C.RAD 09:29
PROVIDERS: ATTEND Nurse Practitioner
DX: M25.512 Pain in left shoulder (principal); M47.812 Spondylosis without myelopathy or radiculopathy, cervical region

== ENCOUNTER 2016-10-26 00:16 | Emergency (ER) | payer OTHER ==
[~2016-10-26] VITALS: Ht 152.4 cm; Wt 68.8 kg
[~2016-10-26 00:16] MED LIST changes: -CLON0.5T3 PO; -COEN50CA2 PO; -CZR25 PO; -ESCI1TAB6 PO; -LOSA1TAB PO; -LOSA50TA54 PO; -METH4PAK PO; -OMEG10007 PO
[2016-10-26 00:20] VITALS: TEMP 36.7; Ht 152.4 cm; Wt 68.8 kg
[2016-10-26 01:10] LABS: BASO % 0.2 %; BASO ABS # 0.02 K/uL (0-0.2); COMPLETE YES; EOS % 2.5 %; HEMATOCRIT 38.7 % (37-47); IG% 0.5 %; LYMPH % 32.3 %; MEAN CELL VOLUME 91.3 fL (80-100); MEAN CORPUSCULAR HEMOGLOBIN 30.9 pg (25-34); MEAN CORPUSCULAR HGB CONC 33.9 g/dl (32-36); MEAN PLATELET VOLUME 11.5 fL (7.4-10.4); NEUT % 57.5 %; PLATELET COUNT 171 K/uL (130-400); RED BLOOD COUNT 4.24 M/uL (4.2-5.4); WHITE BLOOD COUNT 8.68 K/uL (4.8-10.8)
[2016-10-26 01:20] LABS: PROTHROMBIN TIME (PATIENT) 10.4 SECONDS (9.0-12.0)
[2016-10-26 01:24] LABS: POINT OF CARE TROPONIN I < 0.030 ng/ml (0-0.045)
[2016-10-26 01:27] LABS: BUN/CREATININE RATIO 21.5 (10-20); CALCIUM 8.3 mg/dl (8.5-10.1); CREATININE 0.63 mg/dl (0.60-1.20); POTASSIUM 3.6 mmol/L (3.5-5.1)
[2016-10-26 01:30] LABS: ALB/GLOB RATIO 1.2 (0.9-2)
[2016-10-26] MEDS ORDERED: LOSA1TAB PO (01:42)
[2016-10-26] MEDS ORDERED: OMEG10007 PO (01:42)
--- NOTE | 2016-10-26 04:40 | EMERGENCY ROOM VISIT NOTE ---
History First contact with patient: 00:21 Chief Complaint: CHEST PAIN Stated Complaint: CHEST PAIN Nursing Triage Summary: Pt reports dissection diagnosed July 20 this year of the ADL. Chest pain since . History of Present Illness The patient is a 41 year old female who presents to the Emergency Room with complaints of pain in the center of her chest. The patient states that she has pain in the center of her chest strength across the chest and into her throat and jaw. She states the pain has been ongoing since she was seen here for acute coronary syndrome 3 months ago. At that time, she was diagnosed with a spontaneous coronary artery dissection. 6 days ago, the patient had a LEEP and D&C performed. She states that on the ride home, she felt like she couldn't breathe and stopped at the closest emergency department. She states that they observe her overnight and did not see any elevations of her troponins, so they sent her home. She states that she is having mild shortness of breath this time. She states the symptoms do not feel similar to when she was admitted for acute coronary syndrome. She denies any recent illnesses or chills. She denies any abdominal pain, nausea or vomiting. Review of Systems A complete 10 point review of systems was reviewed with the patient with pertinent positives and negatives as per history of present illness. All else were negative. Past Medical/Surgical History Medical Problems: (1) Chest pain (2) Paresthesia of left arm (3) Unilateral facial paresis Surgical Problems: (1) S/P cholecystectomy Family History Gallbladder disease Heart disease Social History Smoking Status: Never Smoker Alcohol Use: occasionally Drug Use: none Marital Status: Housing Status: lives with family Occupation Status: employed Current/Historical Medications Scheduled Aspirin (Aspirin Ec), 81 MG PO DAILY Clopidogrel (Plavix), 75 MG PO DAILY Fish Oil (Ridge-3), 1 CAP PO DAILY Losartan Potassium (Cozaar), 6.25 MG PO DAILY Metoprolol Tartrate (Lopressor) (Lopressor), 12.5 MG PO BID Scheduled PRN Alprazolam (Xanax), 0.25 MG PO Q8 PRN for Anxiety Allergies Coded Allergies: No Known Allergies (Unverified , 10/26/16) Physical Exam Vital Signs Date Time Temp Pulse Resp B/P (MAP) Pulse Ox O2 Delivery O2 Flow Rate FiO2 10/26/16 04:49 72 19 126/90 96 10/26/16 04:41 72 19 126/90 96 Room Air 10/26/16 04:28 75 10/26/16 03:00 68 18 97 Room Air 10/26/16 02:25 75 20 145/95 98 Room Air 10/26/16 00:25 Room Air 10/26/16 00:24 Room Air 10/26/16 00:20 36.7 71 18 152/107 97 Room Air Physical Exam VITALS: Vitals are noted on the nurse's note and reviewed by myself. Vital signs stable. GENERAL: This is a 41-year-old female, mildly anxious appearing, nondiaphoretic , well-developed well-nourished. SKIN: Capillary reflex less than 2 seconds. HEENT: Normocephalic. PERRLA. EOMI. Mucous membranes moist. Neck is supple without nuchal rigidity. HEART: Regular rate and rhythm without murmurs gallops or rubs. LUNGS: Clear to auscultation bilaterally without wheezes, rales or rhonchi. NEURO: Patient was alert and oriented to person place and time. Medical Decision & Procedures ER Provider Diagnostic Interpretation: CHEST X-RAY: No acute cardiopulmonary findings. Laboratory Results 10/26/16 01:01 Red Blood Count 4.24, Mean Corpuscular Volume 91.3, Mean Corpuscular Hemoglobin 30.9, Mean Corpuscular Hemoglobin Concent 33.9, Mean Platelet Volume 11.5, Neutrophils (%) (Auto) 57.5, Lymphocytes (%) (Auto) 32.3, Monocytes (%) (Auto) 7.0, Eosinophils (%) (Auto) 2.5, Basophils (%) (Auto) 0.2, Neutrophils # (Auto) 4.99, Lymphocytes # (Auto) 2.80, Monocytes # (Auto) 0.61, Eosinophils # (Auto) 0.22, Basophils # (Auto) 0.02 10/26/16 01:01 Test 10/26/16 01:01 10/26/16 01:05 10/26/16 02:38 White Blood Count 8.68 K/uL (4.8-10.8) Red Blood Count 4.24 M/uL (4.2-5.4) Hemoglobin 13.1 g/dL (12.0-16.0) Hematocrit 38.7 % (37-47) Mean Corpuscular Volume 91.3 fL (80-100) Mean Corpuscular Hemoglobin 30.9 pg (25-34) Mean Corpuscular Hemoglobin Concent 33.9 g/dl (32-36) Platelet Count 171 K/uL (130-400) Mean Platelet Volume 11.5 fL (7.4-10.4) Neutrophils (%) (Auto) 57.5 % Lymphocytes (%) (Auto) 32.3 % Monocytes (%) (Auto) 7.0 % Eosinophils (%) (Auto) 2.5 % Basophils (%) (Auto) 0.2 % Neutrophils # (Auto) 4.99 K/uL (1.4-6.5) Lymphocytes # (Auto) 2.80 K/uL (1.2-3.4) Monocytes # (Auto) 0.61 K/uL (0.11-0.59) Eosinophils # (Auto) 0.22 K/uL (0-0.5) Basophils # (Auto) 0.02 K/uL (0-0.2) RDW Standard Deviation 41.6 fL (36.4-46.3) RDW Coefficient of Variation 12.3 % (11.5-14.5) Immature Granulocyte % (Auto) 0.5 % Immature Granulocyte # (Auto) 0.04 K/uL (0.00-0.02) Prothrombin Time 10.4 SECONDS (9.0-12.0) Prothromb Time International Ratio 1.0 (0.9-1.1) Activated Partial Thromboplast Time 25.7 SECONDS (21.0-31.0) Partial Thromboplastin Ratio 1.0 Anion Gap 7.0 mmol/L (3-11) Est Creatinine Clear Calc Drug Dose 101.7 ml/min Estimated GFR () 129.1 Estimated GFR (Non- 111.4 BUN/Creatinine Ratio 21.5 (10-20) Calcium Level 8.3 mg/dl (8.5-10.1) Total Bilirubin 0.3 mg/dl (0.2-1) Aspartate Amino Transf (AST/SGOT) 18 U/L (15-37) Alanine Aminotransferase (ALT/SGPT) 27 U/L (12-78) Alkaline Phosphatase 57 U/L (45-117) Total Protein 6.9 gm/dl (6.4-8.2) Albumin 3.8 gm/dl (3.4-5.0) Globulin 3.1 gm/dl (2.5-4.0) Albumin/Globulin Ratio 1.2 (0.9-2) Bedside D-Dimer 328 ng/mlFEU (0-450) Bedside Troponin I < 0.030 ng/ml (0-0.045) ECG Rate (beats per minute): 69 Rhythm: normal sinus Findings: no acute ischemic change, no ectopy Change: no significant change ED Course The patient was evaluated as above. Labs were drawn and IV access was obtained. Patient was reevaluated and was sleeping. A 90 minute troponin was drawn and was negative. Discharge instructions were reviewed with the patient. The patient verbalized understanding of my assessment and treatment plan and was discharged home in good condition. Medical Decision Differential diagnosis includes acute coronary syndrome, pulmonary embolism, pneumothorax, pericarditis, myocarditis, endocarditis, anxiety, musculoskeletal pain, GERD, costochondritis, pneumonia, among others. The patient is a 41-year-old female who presents today complaining of chest pain. Labs revealed no leukocytosis or anemia. D-dimer was not elevated. Troponin 2 was elevated. EKG showed a normal sinus rhythm and is similar to a previous. The patient was seen here in July this year for acute coronary syndrome secondary to spontaneous coronary artery dissection. The patient has been admitted here twice since then for chest pain with negative workups. She has been seen by cardiology multiple times. She had a recent admission this week to a facility in [place] and had multiple troponins which were negative. I do feel there is likely a strong component of anxiety to the patient's symptoms. I spoke with case management, he will make the patient a follow-up appointment with cardiology. I reassured the patient regarding today's findings. She was instructed to return here if her chest pain worsens or the need arises. The patient's case was reviewed with Dr. Yu, ED attending physician, who agreed with my assessment and treatment plan. Based on the patient's presentation and work up, I feel the patient is stable for outpatient treatment. The patient was educated to return to the emergency department for any worsening of their current condition or new/concerning symptoms. 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 Medication reconciliation: I attest that I have personally reviewed the patient 's current medication list. Blood pressure screening: Patient was found to have an elevated blood pressure and was referred to their primary care provider for recheck and further treatment. Impression Primary Impression: Left sided chest pain Departure Information Dispostion Home / Self-Care Condition GOOD Referrals Leonel Morgan M.D. (PCP) Patient Instructions My [facility] Additional Instructions Case management will contact you regarding a follow-up appointment with cardiology. For pain control, you can use the following [id number] medicines (if >12 yo): - Regular strength (325mg/tab) Tylenol (acetaminophen) 2 tabs every 4-6 hours as needed. Do not exceed 12 tablets in a 24 hour period. Avoid taking more than 4 grams (4000 mg) of Tylenol per day. This includes any other sources of acetaminophen you may take on a regular basis. You should also contact your primary care provider to schedule follow-up. Return to the emergency department with any worsening chest pain, shortness of breath, vomiting or any new/concerning symptoms.
[2016-10-26 04:49] VITALS: BP 126/90; PULSE 72; O2SAT 96
--- NOTE | 2016-10-26 07:29 | DIAGNOSTIC IMAGING REPORT ---
SINGLE VIEW CHEST CLINICAL HISTORY: Atypical chest pain. FINDINGS: An AP, portable, upright chest radiograph is compared to study dated 09/05/2016. The examination is degraded by portable technique and patient rotation. The cardiomediastinal silhouette is unremarkable. The lungs and pleural spaces are clear. No pneumothorax is seen. The bony thorax is grossly intact. IMPRESSION: No active disease in the chest. Electronically signed by: Drake Cardona M.D. 10/26/2016 7:28 AM Dictated Date/Time: 10/26/2016 7:27 AM
== END 2016-10-26 04:50 | disposition home or self-care (01) ==
LOC: C.EDB 00:17 → C.EDA 04:50
DX: R07.9 Chest pain, unspecified (principal); Z79.82 Long term (current) use of aspirin

== ENCOUNTER 2016-10-28 13:30 | Emergency (ER) | payer OTHER ==
[~2016-10-28] VITALS: Ht 152.4 cm; Wt 66.6 kg
[~2016-10-28 13:30] MED LIST changes: -BUSP15TA70 PO; -FLX10 PO; +LOSA1TAB PO; +OMEG10007 PO
[2016-10-28 13:33] VITALS: TEMP 36.7; Ht 152.4 cm; Wt 66.6 kg
[2016-10-28] MEDS ORDERED: SODIUM CHLORIDE 0.9% 1000ML 1,000 ML IV STA (15:39)
[2016-10-28] MEDS ORDERED: ONDANSETRON INJ 2 MG/ML 2 ML VIAL IV STA (15:39)
[2016-10-28] MEDS: MoRPHine SULFATE 4 MG/ML 1 ML CARP\\VIAL IV PRN ×2 (16:12→18:22)
[2016-10-28 16:38] LABS: BASO % 0.1 %; BASO ABS # 0.02 K/uL (0-0.2); COMPLETE YES; EOS % 0.3 %; HEMATOCRIT 43.4 % (37-47); IG% 0.6 %; LYMPH % 12.8 %; MEAN CELL VOLUME 92.3 fL (80-100); MEAN CORPUSCULAR HEMOGLOBIN 31.9 pg (25-34); MEAN CORPUSCULAR HGB CONC 34.6 g/dl (32-36); MEAN PLATELET VOLUME 11.9 fL (7.4-10.4); MONO % 6.5 %; NEUT % 79.7 %; PLATELET COUNT 220 K/uL (130-400); WHITE BLOOD COUNT 15.58 K/uL (4.8-10.8)
[2016-10-28 16:52] LABS: INR 0.9 (0.9-1.1); PROTHROMBIN TIME (PATIENT) 10.1 SECONDS (9.0-12.0)
[2016-10-28 17:00] LABS: URINE APPEARANCE CLEAR (CLEAR); URINE BILIRUBIN NEG (NEG); URINE COLOR YELLOW; URINE EPITHELIAL CELL AUTO >30 /lpf (0-5); URINE NITRITE NEG (NEG); URINE PH 5.5 (4.5-7.5); URINE SPECIFIC GRAVITY 1.025 (1.000-1.030); UROBILINOGEN NEG (NEG)
[2016-10-28] MEDS ORDERED: METH4PAK PO (17:02)
[2016-10-28 17:06] LABS: MANUAL MICROSCOPIC REQUIRED? NO; REVIEW REQ? NO
[2016-10-28 17:07] LABS: ALKALINE PHOSPHATASE 67 U/L (45-117); ALT/SGPT 26 U/L (12-78); AST/SGOT 15 U/L (15-37); BLOOD UREA NITROGEN 9 mg/dl (7-18); BUN/CREATININE RATIO 12.1 (10-20); CALCIUM 9.8 mg/dl (8.5-10.1); CARBON DIOXIDE 24 mmol/L (21-32); CHLORIDE 110 mmol/L (98-107); CREATININE 0.75 mg/dl (0.60-1.20); GLUCOSE 111 mg/dl (70-99); POTASSIUM 3.7 mmol/L (3.5-5.1); SODIUM 143 mmol/L (136-145)
[2016-10-28 19:22] VITALS: BP 129/78; PULSE 74; O2SAT 96
--- NOTE | 2016-10-28 23:07 | EMERGENCY ROOM VISIT NOTE ---
ED Visit Note First contact with patient: 15:16 Chief Complaint: Vaginal bleeding. History of Present Illness: Ms. Matthews is a 41-year-old white female who ambulates into the ED complaining of vaginal bleeding one week after LEEP and D& C procedure. Historically patient has a history of carotid artery dissection and MS. She is currently on Plavix. Additionally she is and has a history of abnormal uterine bleeding and is status post uterine ablation. She recently had an abnormal Pap smear and was seen at [facility]. On October 20 she was taking to the operating room for D&C, endocervical curettage and LEEP. Post surgery she was in hemostasis. Patient reports approximately 6 hours before she arrived in the emergency department she started having vaginal bleeding. Since that time the bleeding has been constant. She reports she is changing pantie liners every 2 hours. She reports the panty liners are not saturated and she has not seen any clots. She describes the blood as bright red blood. Associated with the bleeding she reports she has been having central pelvic abdominal cramping. She rates her discomfort 4/10. The pain is nonradiating. She has not identified any aggravating or alleviating factors related to the pain. She has not taken any medications for pain prior to arrival at the hospital. She denies any associated symptoms including headache, dizziness, lightheadedness, chest pain, short of breath. Additionally she reports she has having mild anxiety, worsening blood pressure and some mild facial paresthesias and questions whether this could be related to bleeding versus her new blood pressure medications and steroids. Lastly she reports that 2 days ago she was seen in the emergency department for left sided chest pain. At that time no cause for her chest pain was identified and she had no signs of ischemic injury to the heart. She was discharged home and saw her PCP yesterday who felt this was most likely costochondritis is and she was started on steroids. Additionally she was hypertensive and started on Cozaar. Review of Systems: As noted above in history of present illness. All body systems were reviewed and found to be negative as noted above. Past Medical History: As previously noted (1) Chest pain (2) Paresthesia of left arm (3) Unilateral facial paresis Surgical Problems: (1) S/P cholecystectomy Current Medications: Medications Dose Route/Sig Max Daily Dose Days Date Category Medrol Dosepak (Methylprednisolone) 4 Mg Nestor 1 Pkt PO UD 6 10/28/16 Reported [place]-3 (Fish Oil) 1 Ea Cap 1 Cap PO DAILY 10/26/16 Reported Cozaar (Losartan Potassium) 25 Mg Tab 12.5 Mg PO DAILY 10/26/16 Reported Xanax (Alprazolam) 0.5 Mg Tab 0.25 Mg PO Q8 PRN 09/05/16 Reported Aspirin Ec (Aspirin) 81 Mg Tab 81 Mg PO DAILY 09/05/16 Reported Lopressor (Metoprolol Tartrate) 25 Mg Tab 12.5 Mg PO BID 09/05/16 Reported Plavix (Clopidogrel Bisulfate) 75 Mg Tab 75 Mg PO DAILY 09/05/16 Reported Allergies to Medications: Patient denies. Social History: Patient is currently employed; she is safe in her home environment; she reports recently she stop smoking. Physical Examination: Vital Signs: Date Time Temp Pulse Resp B/P (MAP) Pulse Ox O2 Delivery O2 Flow Rate FiO2 10/28/16 19:22 74 18 129/78 96 10/28/16 18:12 70 13 140/87 95 Room Air 10/28/16 17:07 65 15 165/94 99 Room Air 10/28/16 16:42 66 10/28/16 16:18 66 17 145/95 98 Room Air 10/28/16 13:33 36.7 84 18 153/79 99 Room Air GENERAL: 41-year-old female in mild distress due to pain, nontoxic-appearing, afebrile and hemodynamically stable. NEUROLOGICAL: Awake, alert and oriented to person, place and time. Answering questions appropriately and following commands. Normal gait. Good hand eye coordination. No focal motor sensory deficits. SKIN: Warm, dry and pink. No soft tissue eruptions or trauma noted. HEENT: Atraumatic and normocephalic. PERRLA. Sclera white and conjunctiva pink. No drainage from naris. Oral cavity moist and pink. Pharynx is nonerythematous or edematous. Speech normal. No lymphadenopathy. Trachea midline. No jugular venous distention. BACK: No tenderness over the bony spine. No CVA tenderness. THORAX: Lungs sounds are clear to auscultation and equal bilaterally with symmetrical chest wall. No wheezing, rales or rhonchi. No crepitus, tenderness , subcutaneous air or deformities noted. HEART: Regular rate and rhythm. No gallops, rubs or murmurs are appreciated. ABDOMEN: Flat, soft and nontender. Positive bowel sounds in all quadrants. No guarding, rigidity or organomegaly. PELVIC: Normal external genitalia. No rashes, swelling or erythema. No local lymphadenopathy. All exam shows bright red blood. Review of the cervix shows blood oozing from her LEEP procedure but did not appear to be bleeding through the os. EXTREMITIES: Moves all extremities well on command and with purpose. All distal neurovascular statuses are intact and equal bilaterally. ED Course: Patient is assessed as noted above. Patient's medication list was reviewed. Laboratory Testing: Test 10/28/16 16:15 10/28/16 16:30 Range/Units White Blood Count 15.58 4.8-10.8 K/uL Red Blood Count 4.70 4.2-5.4 M/uL Hemoglobin 15.0 12.0-16.0 g/dL Hematocrit 43.4 37-47 % Mean Corpuscular Volume 92.3 80-100 fL Mean Corpuscular Hemoglobin 31.9 25-34 pg Mean Corpuscular Hemoglobin Concent 34.6 32-36 g/dl Platelet Count 220 130-400 K/uL Mean Platelet Volume 11.9 7.4-10.4 fL Neutrophils (%) (Auto) 79.7 % Lymphocytes (%) (Auto) 12.8 % Monocytes (%) (Auto) 6.5 % Eosinophils (%) (Auto) 0.3 % Basophils (%) (Auto) 0.1 % Neutrophils # (Auto) 12.39 1.4-6.5 K/uL Lymphocytes # (Auto) 2.00 1.2-3.4 K/uL Monocytes # (Auto) 1.02 0.11-0.59 K/uL Eosinophils # (Auto) 0.05 0-0.5 K/uL Basophils # (Auto) 0.02 0-0.2 K/uL RDW Standard Deviation 42.7 36.4-46.3 fL RDW Coefficient of Variation 12.5 11.5-14.5 % Immature Granulocyte % (Auto) 0.6 % Immature Granulocyte # (Auto) 0.10 0.00-0.02 K/uL Prothrombin Time 10.1 9.0-12.0 SECONDS Prothromb Time International Ratio 0.9 0.9-1.1 Activated Partial Thromboplast Time 26.2 21.0-31.0 SECONDS Partial Thromboplastin Ratio 1.0 Sodium Level 143 136-145 mmol/L Potassium Level 3.7 3.5-5.1 mmol/L Chloride Level 110 98-107 mmol/L Carbon Dioxide Level 24 21-32 mmol/L Anion Gap 9.0 3-11 mmol/L Blood Urea Nitrogen 9 7-18 mg/dl Creatinine 0.75 0.60-1.20 mg/dl Est Creatinine Clear Calc Drug Dose 84.1 ml/min Estimated GFR () 114.8 Estimated GFR (Non- 99.0 BUN/Creatinine Ratio 12.1 10-20 Random Glucose 111 70-99 mg/dl Calcium Level 9.8 8.5-10.1 mg/dl Total Bilirubin 0.3 0.2-1 mg/dl Direct Bilirubin < 0.1 0-0.2 mg/dl Aspartate Amino Transf (AST/SGOT) 15 15-37 U/L Alanine Aminotransferase (ALT/SGPT) 26 12-78 U/L Alkaline Phosphatase 67 45-117 U/L Total Protein 8.4 6.4-8.2 gm/dl Albumin 4.5 3.4-5.0 gm/dl Urine Color YELLOW Urine Appearance CLEAR CLEAR Urine pH 5.5 4.5-7.5 Urine Specific [place] 1.025 1.000-1.030 Urine Protein NEG NEG Urine Glucose (UA) NEG NEG Urine Ketones TRACE NEG Urine Occult Blood 3+ NEG Urine Nitrite NEG NEG Urine Bilirubin NEG NEG Urine Urobilinogen NEG NEG Urine Leukocyte Esterase SMALL NEG Urine WBC (Auto) 10-30 0-5 /hpf Urine RBC (Auto) >30 0-4 /hpf Urine Hyaline Casts (Auto) 5-10 0-5 /lpf Urine Epithelial Cells (Auto) >30 0-5 /lpf Urine Bacteria (Auto) NEG NEG An IV lock was initiated and patient was hydrated with normal saline and she received 4 mg of morphine IV for pain and 4 mg of Zofran. Patient was reassessed multiple times during her stay in the emergency department. Patient's case was reviewed with Dr. Ovalle; we agreed on diagnostic approach , treatment, disposition and plan. Patient's case was consulted with Dr. Chacon, OCCUPATIONAL HEALTH PHYSIOTHERAPIST surgery [facility]; Patient was educated about today's findings and instructed on her treatment plan ; she verbalizes understanding and agreement with this plan. Clinical Impression: Vaginal bleeding. Disposition: Patient discharged home in stable condition; prior to departure she was reassessed and subjectively reported she was feeling better. Plan: Patient was encouraged to continue her current medications as prescribed. Patient was encouraged to monitor her bleeding and if she would start saturating sanitary napkins more than one pad every hour she should return to the ED. Patient was encouraged to follow-up with her local OCCUPATIONAL HEALTH PHYSIOTHERAPIST provider on Monday. Patient was also encouraged return the ED for lightheadedness, chest pain, shortness of breath, any episodes of passing out, unusual bleeding or any new/ concerning symptoms.
== END 2016-10-28 19:24 | disposition home or self-care (01) ==
LOC: C.EDB 13:31 → C.EDC 19:24
DX: N93.9 Abnormal uterine and vaginal bleeding, unspecified (principal); I25.2 Old myocardial infarction; Z87.891 Personal history of nicotine dependence; Z90.49 Acquired absence of other specified parts of digestive tract; Z98.890 Other specified postprocedural states; Z79.02 Long term (current) use of antithrombotics/antiplatelets; Z79.82 Long term (current) use of aspirin

== ENCOUNTER 2016-10-31 20:37 | Emergency (ER) | payer OTHER ==
[~2016-10-31] VITALS: Ht 152.4 cm; Wt 66.5 kg
[~2016-10-31 20:37] MED LIST changes: +METH4PAK PO
[2016-10-31 20:42] VITALS: TEMP 36.7; Ht 152.4 cm; Wt 66.5 kg
[2016-10-31] MEDS ORDERED: SODIUM CHLORIDE 0.9% 1000ML 1,000 ML IV STA ×2 (21:29)
[2016-10-31 22:04] LABS: BASO % 0.2 %; BASO ABS # 0.03 K/uL (0-0.2); COMPLETE YES; EOS % 0.9 %; HEMATOCRIT 41.4 % (37-47); LYMPH ABS # 3.23 K/uL (1.2-3.4); MEAN CORPUSCULAR HEMOGLOBIN 31.6 pg (25-34); MEAN CORPUSCULAR HGB CONC 34.3 g/dl (32-36); MEAN PLATELET VOLUME 11.5 fL (7.4-10.4); MONO % 8.1 %; NEUT % 64.8 %; PLATELET COUNT 205 K/uL (130-400)
[2016-10-31 22:17] LABS: PROTHROMBIN TIME (PATIENT) 10.7 SECONDS (9.0-12.0)
[2016-10-31 22:19] VITALS: O2SAT 98
[2016-10-31 22:20] LABS: BUN/CREATININE RATIO 17.6 (10-20); CREATININE 0.66 mg/dl (0.60-1.20); POTASSIUM 3.6 mmol/L (3.5-5.1)
[2016-10-31] MEDS ORDERED: LORAZEPAM 2 MG/ML 1 ML VIAL IV STA (22:21)
[2016-10-31 22:23] LABS: ALB/GLOB RATIO 1.2 (0.9-2)
[2016-10-31] MEDS ORDERED: CZR25 PO (22:28)
[2016-10-31 22:35] LABS: PREG INTERNAL NEGATIVE QC NEG CLEAR BACKGROUND; PREG INTERNAL POSITIVE QC POS CONTROL LINE
[2016-11-01 00:54] VITALS: BP 147/92; PULSE 72; O2SAT 96
--- NOTE | 2016-11-01 03:39 | EMERGENCY ROOM VISIT NOTE ---
History First contact with patient: 21:22 Chief Complaint: VAGINAL BLEEDING Stated Complaint: HEAVY VAGINAL BLEEDING History of Present Illness The patient is a 41 year old female who presents to the Emergency Room with complaints of heavy vaginal bleeding since 5 PM tonight who had a D&C with LEEP procedure 1 week ago for cervical carcinoma at [facility]. Patient was seen here 2 days ago for similar complaint. Patient states the bleeding tapered off and started back tonight at 5 PM. She states she feels as if the blood is just leaking out of her. She's gone through a couple of pads. Patient denies chest pain, dyspnea, fever, chills, abdominal pain, lightheadedness, dizziness, weakness, back pain, urinary symptoms. She is tolerate by mouth fluids and food. She did not call her OB doctor. Review of Systems See HPI for pertinent positives & negatives. A total of 10 systems reviewed and were otherwise negative. Past Medical/Surgical History Medical Problems: (1) Chest pain (2) Paresthesia of left arm (3) Unilateral facial paresis Surgical Problems: (1) S/P cholecystectomy Cervical carcinoma Family History Gallbladder disease Heart disease Social History Smoking Status: Never Smoker Alcohol Use: occasionally Drug Use: none Marital Status: Housing Status: lives with family Occupation Status: employed Current/Historical Medications Scheduled Aspirin (Aspirin Ec), 81 MG PO DAILY Clopidogrel (Plavix), 75 MG PO DAILY Fish Oil ([place]-3), 1 CAP PO DAILY Losartan Potassium (Losartan Potassium), 25 MG PO DAILY Metoprolol Tartrate (Lopressor) (Lopressor), 12.5 MG PO BID Scheduled PRN Alprazolam (Xanax), 0.25 MG PO Q8 PRN for Anxiety Allergies Coded Allergies: No Known Allergies (Unverified , 10/28/16) Physical Exam Vital Signs Date Time Temp Pulse Resp B/P (MAP) Pulse Ox O2 Delivery O2 Flow Rate FiO2 11/01/16 00:54 72 16 147/92 96 Room Air 10/31/16 23:40 64 18 153/95 96 Room Air 10/31/16 22:34 74 10/31/16 22:19 68 21 148/94 98 Room Air 10/31/16 22:19 98 Room Air 10/31/16 20:42 36.7 78 18 134/86 97 Room Air Pain Rating (0-10): 0 Physical Exam VITALS: Vitals are noted on the nurse's note and reviewed by myself. Vital signs stable. GENERAL: Pleasant female, in no acute distress, nondiaphoretic, well-developed well-nourished. SKIN: Capillary reflex less than 2 seconds. HEENT: Normocephalic. PERRLA. EOMI. Nares patent. Mucous membranes moist. Neck is supple without nuchal rigidity. HEART: Regular rate and rhythm without murmurs gallops or rubs. LUNGS: Clear to auscultation bilaterally without wheezes, rales or rhonchi. No retractions or accessory muscle use. ABDOMEN: Positive bowel sounds x 4. Normal tympanic percussion. Soft, nontender, without masses or organomegaly. Cornell sign negative. No guarding or rebound tenderness. No CVA tenderness exam: Normal external female genitalia, minimal blood in the vault, minimal bright red blood coming out of the cervical os. Industrial Cook present. Repeat pelvic exam 2 hours later was unchanged. MUSCULOSKELETAL: No gross musculoskeletal defects. No pedal edema. NEURO: Patient was alert and oriented to person place and time. Normal sensation to light and sharp touch. No focal neurological deficits. Medical Decision & Procedures Laboratory Results 10/31/16 21:55 Red Blood Count 4.50, Mean Corpuscular Volume 92.0, Mean Corpuscular Hemoglobin 31.6, Mean Corpuscular Hemoglobin Concent 34.3, Mean Platelet Volume 11.5, Neutrophils (%) (Auto) 64.8, Lymphocytes (%) (Auto) 25.0, Monocytes (%) (Auto) 8.1, Eosinophils (%) (Auto) 0.9, Basophils (%) (Auto) 0.2, Neutrophils # (Auto) 8.35, Lymphocytes # (Auto) 3.23, Monocytes # (Auto) 1.05, Eosinophils # (Auto) 0.11, Basophils # (Auto) 0.03 10/31/16 21:55 Test 10/31/16 21:55 White Blood Count 12.90 K/uL (4.8-10.8) Red Blood Count 4.50 M/uL (4.2-5.4) Hemoglobin 14.2 g/dL (12.0-16.0) Hematocrit 41.4 % (37-47) Mean Corpuscular Volume 92.0 fL (80-100) Mean Corpuscular Hemoglobin 31.6 pg (25-34) Mean Corpuscular Hemoglobin Concent 34.3 g/dl (32-36) Platelet Count 205 K/uL (130-400) Mean Platelet Volume 11.5 fL (7.4-10.4) Neutrophils (%) (Auto) 64.8 % Lymphocytes (%) (Auto) 25.0 % Monocytes (%) (Auto) 8.1 % Eosinophils (%) (Auto) 0.9 % Basophils (%) (Auto) 0.2 % Neutrophils # (Auto) 8.35 K/uL (1.4-6.5) Lymphocytes # (Auto) 3.23 K/uL (1.2-3.4) Monocytes # (Auto) 1.05 K/uL (0.11-0.59) Eosinophils # (Auto) 0.11 K/uL (0-0.5) Basophils # (Auto) 0.03 K/uL (0-0.2) RDW Standard Deviation 42.2 fL (36.4-46.3) RDW Coefficient of Variation 12.5 % (11.5-14.5) Immature Granulocyte % (Auto) 1.0 % Immature Granulocyte # (Auto) 0.13 K/uL (0.00-0.02) Prothrombin Time 10.7 SECONDS (9.0-12.0) Prothromb Time International Ratio 1.0 (0.9-1.1) Activated Partial Thromboplast Time 25.3 SECONDS (21.0-31.0) Partial Thromboplastin Ratio 1.0 Anion Gap 7.0 mmol/L (3-11) Est Creatinine Clear Calc Drug Dose 95.4 ml/min Estimated GFR () 127.2 Estimated GFR (Non- 109.7 BUN/Creatinine Ratio 17.6 (10-20) Calcium Level 9.0 mg/dl (8.5-10.1) Total Bilirubin 0.3 mg/dl (0.2-1) Aspartate Amino Transf (AST/SGOT) 14 U/L (15-37) Alanine Aminotransferase (ALT/SGPT) 22 U/L (12-78) Alkaline Phosphatase 59 U/L (45-117) Total Protein 7.1 gm/dl (6.4-8.2) Albumin 3.8 gm/dl (3.4-5.0) Globulin 3.3 gm/dl (2.5-4.0) Albumin/Globulin Ratio 1.2 (0.9-2) Human Chorionic Gonadotropin, Qual NEG (NEG) Medications Administered Medications (Trade) Dose Ordered Sig/Sneha Route Start Time Stop Time Status Last Admin Dose Admin Sodium Chloride 1,000 ml @ 999 mls/hr Q1H1M STAT IV 10/31/16 21:29 10/31/16 22:29 DC 10/31/16 21:29 999 MLS/HR Sodium Chloride 1,000 ml @ 125 mls/hr Q8H STAT IV 10/31/16 21:29 11/01/16 01:21 DC 10/31/16 23:46 125 MLS/HR Lorazepam (Ativan Inj) 1 mg NOW STAT IV 10/31/16 22:21 10/31/16 22:22 DC 10/31/16 23:46 1 MG ED Course Prior records/ancillary studies reviewed. Triage Nursing notes reviewed. The patient's history was concerning for vaginal bleeding Differential diagnosis: Etiologies such as complication of recent procedure, coagulopathy, ectopic , dysfunction uterine bleeding, bleeding dyscrasia, trauma, infection, as well as others were entertained. Physical examination: As above. Vitals signs revealed stable ER treatment provided: IV fluids, Ativan On reassessment the patient felt better. Diagnostic interpretation by me: coagulation studies, and chemistries were unremarkable. Stable H&H Imaging studies: Ultrasound was reviewed Consultation: A consultation was placed with the long wall mining machine helper physician, Dr. Spann. The case was discussed and diagnostics were reviewed. She recommends discharge with follow- up with OB and her surgeon this week.. This appears to be consistent with dysfunction uterine bleeding most likely from recent D&C and being on antiplatelet medication for heart disease. Patient had a stable H&H. She is well-appearing. She 2 pelvic exams over 2 hours apart that showed minimal blood in the vault. She did not have acute abdomen on exam. She was well-appearing. She is strongly encouraged to follow- up with her OB doctors this week or here in the ER sooner for heavy bleeding, lightheadedness, weakness, worsening signs or symptoms or as needed. Patient was neurovascularly and neurologically intact. She was well-appearing. By the evaluation outlined above emergent etiologies such as bleeding dyscrasia, ectopic , trauma, as well as others were deemed relatively unlikely. The pt informed about the findings as listed above. All questions were answered and pleased with the treatment. Return instructions were outlined and the patient was discharged in stable condition. Referral: The patient was referred to HAND TUFTER for follow-up in 2 to 3 days for a recheck of her current condition. Case reviewed with my attending Medical Decision As above Impression Primary Impression: Abnormal vaginal bleeding Departure Information Dispostion Home / Self-Care Condition GOOD Forms WORK / SCHOOL INSTRUCTIONS, HOME CARE DOCUMENTATION FORM, Days off work : 3 Work Instructions, IMPORTANT VISIT INFORMATION Patient Instructions Endocervical Curettage, My [facility] Additional Instructions DO NOT drive, drink alcohol, operate machinery, or perform dangerous activities today. You were given medications in the ER that can affect your ability to safely function or operate a vehicle. Acetaminophen(Tylenol) may be used for fever or pain. Use 1000mg every six hours as needed. Avoid using more than 4000mg in a 24 hour period. Rest and drink plenty of fluids as tolerated. Continue current medications. Avoid strenuous activities until cleared by HAND TUFTER. Return to the ER immediately for worsening or persistent heavy vaginal bleeding , abdominal pain, vomiting, fevers, chest pains, difficulty breathing, worsening of your condition, or as needed. Follow up with your AMMUNITION STORAGE SUPERINTENDENT in 2-3 days for a recheck of your current condition.
--- NOTE | 2016-11-01 07:55 | DIAGNOSTIC IMAGING REPORT ---
PELVIC ULTRASOUND CLINICAL HISTORY: Recent leep, heavy bleed COMPARISON STUDY: CT of the abdomen and pelvis August 17, 2016. TECHNIQUE: Transabdominal and transvaginal sonography of the pelvis was performed. FINDINGS: The uterus measures 8 x 3.3 x 4.5 cm. Endometrium measures 4 mm in thickness. There is trace fluid within the endometrial canal. There is mild heterogeneity of the uterus. The right ovary measures 2.3 x 2.2 x 2.3 cm and the left measures 4.1 x 2 x 2.9 cm. There are follicles within each ovary. Color flow is identified within each ovary. There was no free fluid. IMPRESSION: 1. Endometrial thickness of 4 mm with trace fluid within the endometrial canal. Mild heterogeneously of the uterus, a nonspecific finding. 2. No evidence of ovarian torsion. 3. No free fluid within the pelvis. Electronically signed by: Hima Bui M.D. 11/01/2016 7:54 AM Dictated Date/Time: 11/01/2016 6:45 AM
== END 2016-11-01 00:56 | disposition home or self-care (01) ==
LOC: C.EDB 20:39
DX: N93.9 Abnormal uterine and vaginal bleeding, unspecified (principal); Z85.41 Personal history of malignant neoplasm of cervix uteri; Z90.49 Acquired absence of other specified parts of digestive tract; Z79.82 Long term (current) use of aspirin; Z79.899 Other long term (current) drug therapy; Z83.79 Family history of other diseases of the digestive system; Z82.49 Family history of ischemic heart disease and other diseases of the circulatory system

== ENCOUNTER → 2016-11-10 | Outpatient (CLI) | payer OTHER ==
[~2016-11-10] MED LIST changes: +CLON0.5T3 PO; +COEN50CA2 PO; +CZR25 PO; +ESCI1TAB6 PO; -LOSA1TAB PO; +LOSA50TA54 PO; -METH4PAK PO
[2016-11-10 09:53] LABS: BLOOD UREA NITROGEN 11 mg/dl (7-18); CALCIUM 9.2 mg/dl (8.5-10.1); CARBON DIOXIDE 23 mmol/L (21-32); CHLORIDE 112 mmol/L (98-107); CREATININE 0.68 mg/dl (0.60-1.20); GLUCOSE 105 mg/dl (70-99); POTASSIUM 4.1 mmol/L (3.5-5.1); SODIUM 141 mmol/L (136-145)
== END | disposition home or self-care (01) ==
LOC: C.LAB1850 07:59
PROVIDERS: ATTEND Physician Assistant
DX: R03.0 Elevated blood-pressure reading, without diagnosis of hypertension (principal)

== ENCOUNTER → 2016-12-08 | Outpatient (CLI) | payer OTHER ==
--- NOTE | 2016-12-09 13:21 | MAMMOGRAPHY REPORT ---
BILATERAL DIGITAL SCREENING MAMMOGRAM TOMOSYNTHESIS WITH CAD: 12/08/2016 CLINICAL HISTORY: Routine screening. TECHNIQUE: Breast tomosynthesis in addition to standard 2D mammography was performed. Current study was also evaluated with a Computer Aided Detection (CAD) system. COMPARISON: No prior exams were available for comparison. BREAST COMPOSITION: The tissue of both breasts is heterogeneously dense, which may obscure small mas ses. FINDINGS: There are possible obscured masses seen within the right inferior posterior breast, best s een on the tomosynthesis images, for which ultrasound and possible additional spot compression tomosy nthesis views are recommended for further evaluation. Additionally, there are faint calcifications s een within the right lateral posterior breast, for which spot magnification views are recommended. The remainder of both breasts demonstrate no suspicious masses, calcifications, or areas of sap hana architect ural distortion. Other scattered coarse benign-appearing calcifications are noted bilaterally. IMPRESSION: ACR BI-RADS CATEGORY 0: INCOMPLETE EVALUATION: NEED ADDITIONAL IMAGING EVALUATION Possible right breast masses and breast calcifications, for which additional imaging evaluation is re commended. The patient will be called to schedule an appointment. Approximately 10% of breast cancers are not detected with mammography. A negative mammographic report should not delay biopsy if a clinically suggestive mass is present. Venecia Otero M.D. ah/:12/08/2016 16:00:06 Cryptographer: Angeline TREVINO)(Martina), [facility] letter sent: Addl Imaging 0 BI-RADS Code: ACR BI-RADS Category 0: Incomplete Evaluation: Need Additional Imaging Evaluation
== END | disposition home or self-care (01) ==
LOC: C.MAMM 12:50
PROVIDERS: ATTEND Obstetrics & Gynecology
DX: Z12.31 Encounter for screening mammogram for malignant neoplasm of breast (principal); N63 Unspecified lump in breast; R92.1 Mammographic calcification found on diagnostic imaging of breast

== ENCOUNTER → 2016-12-15 | Outpatient (CLI) | payer OTHER ==
--- NOTE | 2016-12-15 13:43 | DIAGNOSTIC IMAGING REPORT ---
LUMBAR SPINE MIN 4 VIEWS CLINICAL HISTORY: LOW BACK PAIN COMPARISON STUDY: No previous studies for comparison. FINDINGS: There is a mild lumbar dextroscoliosis. There are surgical clips within the right upper quadrant consistent with a prior cholecystectomy. There is no pathologic bowel dilatation. No acute fractures or subluxations are visualized. There are degenerative changes most pronounced the L2-3 level. IMPRESSION: Mild degenerative changes most pronounced at the L2-3 level. No acute fractures or subluxations identified. Electronically signed by: Jackson Bueno M.D. 12/15/2016 1:41 PM Dictated Date/Time: 12/15/2016 1:40 PM
== END | disposition home or self-care (01) ==
LOC: C.RDSM 15:30
PROVIDERS: ATTEND Internal Medicine
DX: M54.5 Low back pain (principal)

== ENCOUNTER → 2016-12-16 | Outpatient (CLI) | payer OTHER ==
--- NOTE | 2016-12-16 13:58 | MAMMOGRAPHY REPORT ---
UNILATERAL RIGHT DIGITAL DIAGNOSTIC MAMMOGRAM AND TARGETED RIGHT ULTRASOUND: 12/16/2016 CLINICAL HISTORY: Callback from screening mammogram for right breast possible masses in right breast calcifications. TECHNIQUE: Spot magnification right cc and ML views were obtained. COMPARISON: Comparison is made to exam dated: 12/08/2016 mammogram - [facility]. BREAST COMPOSITION: The tissue of the right breast is heterogeneously dense, which may obscure small masses. FINDINGS: Spot magnification views of the right breast demonstrate scattered calcifications within t he right breast, predominantly the right lower outer quadrant. The calcifications are predominantly punctate and round. Many of the calcifications demonstrate layering on the lateral view, consistent with benign milk of calcium. The calcifications are in association with nodularity seen mammographic ally. Targeted ultrasound was performed of the right lower outer quadrant from 6 to 9:00 in the region of t he nodularities seen mammographically. There are multiple adjacent round/oval anechoic benign cysts and mild duct ectasia seen throughout the right lower outer quadrant from 6 to 8:00, which correspond s with the nodularities with associated calcifications seen mammographically. An anechoic 3 mm benig n cyst is also seen within the right 3:00 periareolar breast. The mammographic and sonographic findi ngs together are benign and compatible with fibrocystic changes. No suspicious solid masses were ylla dent. IMPRESSION: ACR BI-RADS CATEGORY 2: BENIGN, TARGETED ULTRASOUND ACR BI-RADS CATEGORY 2: BENIGN Benign fibrocystic changes seen within the right breast from 6 to 8:00. There is no mammographic or t argeted sonographic evidence of malignancy. A 1 year screening mammogram is recommended. The patient has been verbally notified of the results. Approximately 10% of breast cancers are not detected with mammography. A negative mammographic report should not delay biopsy if a clinically suggestive mass is present. Venecia Otero M.D. /:12/16/2016 08:45:56 General Utility Machine Operator: Rachel TREVINO)(Martina), [facility] letter sent: Normal 1/2 BI-RADS Code: ACR BI-RADS Category 2: Benign Ultrasound BI-RADS: ACR BI-RADS Category 2: Benign
== END | disposition home or self-care (01) ==
LOC: C.MAMM 08:08
PROVIDERS: ATTEND Obstetrics & Gynecology
DX: N63 Unspecified lump in breast (principal); R92.0 Mammographic microcalcification found on diagnostic imaging of breast

== ENCOUNTER → 2016-12-29 | Outpatient (CLI) | payer OTHER ==
[2016-12-29 13:02] LABS: URINE APPEARANCE CLEAR (CLEAR); URINE BILIRUBIN NEG (NEG); URINE COLOR YELLOW; URINE NITRITE NEG (NEG); URINE SPECIFIC GRAVITY 1.015 (1.000-1.030); UROBILINOGEN NEG (NEG)
[2016-12-29 13:13] LABS: MANUAL MICROSCOPIC REQUIRED? NO; REVIEW REQ? NO
[2017-01-03 23:56] LABS: ANTI-CENTROMERE AB <1.0 NEG AI (<1.0 NEG); ANTI-SS-A <1.0 NEG AI (<1.0 NEG); ANTI-SS-B <1.0 NEG AI (<1.0 NEG); DNA ds CRITHIDIA NEGATIVE (NEGATIVE); Sm Antibody <1.0 NEG AI (<1.0 NEG)
[2017-01-04 06:19] LABS: ANA TITER 1:40 TITER (<1:40)
== END | disposition home or self-care (01) ==
LOC: C.LAB1850 09:32
PROVIDERS: ATTEND Internal Medicine Rheumatology
DX: M25.512 Pain in left shoulder (principal); R07.89 Other chest pain; I73.00 Raynaud's syndrome without gangrene; Q79.6 Ehlers-Danlos syndromes; R20.0 Anesthesia of skin

== ENCOUNTER → 2017-01-05 | Outpatient (CLI) | payer OTHER | END | disposition home or self-care (01) | LOC: C.LABBFT 12:01 | PROVIDERS: ATTEND Nurse Practitioner | DX: R68.89 Other general symptoms and signs (principal) ==

== ENCOUNTER → 2017-01-12 | Outpatient (CLI) | payer OTHER ==
--- NOTE | 2017-01-12 13:11 | DIAGNOSTIC IMAGING REPORT ---
SOFT TISSUE HEAD/NECK-THYROID CLINICAL HISTORY: 41 years-old Female with R68.89 Throat fullness. COMPARISON: None available TECHNIQUE: Multiple real time sonographic images of the thyroid were obtained accessing baer scale appearance and color doppler flow. FINDINGS: MEASUREMENTS: Right lobe: 4.7 x 1.0 x 1.6 cm Left lobe: 3.8 x 0.8 x 1.6 cm Isthmus: 0.2 cm PARENCHYMA: The thyroid parenchymal echotexture is generally homogeneous. NODULES: Hypoechoic nodule of the mid pole left thyroid is seen, 0.3 x 0.2 x 0.3 cm which appears solid and circumscribed, of low suspicion. IMPRESSION: No suspicious thyroid nodules identified. The above report was generated using voice recognition software. It may contain grammatical, syntax or spelling errors. Electronically signed by: Branden Mosley M.D. 01/12/2017 1:10 PM Dictated Date/Time: 01/12/2017 1:09 PM
== END | disposition home or self-care (01) ==
LOC: C.ULTR 12:45
PROVIDERS: ATTEND Nurse Practitioner
DX: R68.89 Other general symptoms and signs (principal)

== ENCOUNTER 2017-01-16 06:02 | Emergency (ER) | payer OTHER ==
[~2017-01-16] VITALS: Ht 152.4 cm; Wt 71.3 kg
[~2017-01-16 06:02] MED LIST changes: -CLON0.5T3 PO; -COEN50CA2 PO; -ESCI1TAB6 PO; -LOSA50TA54 PO
[2017-01-16 06:05] VITALS: TEMP 36.7; Ht 152.4 cm; Wt 71.3 kg
[2017-01-16 06:15] VITALS: O2SAT 98
[2017-01-16] MEDS ORDERED: LOSA50TA54 PO (06:56)
[2017-01-16] MEDS ORDERED: ESCI1TAB6 PO (06:57)
[2017-01-16] MEDS ORDERED: COEN50CA2 PO (06:58)
[2017-01-16] MEDS ORDERED: CLON0.5T3 PO (06:58)
--- NOTE | 2017-01-16 07:21 | DIAGNOSTIC IMAGING REPORT ---
CHEST ONE VIEW PORTABLE CLINICAL HISTORY: 41 years-old Female presenting with chest pain, pleuritic. TECHNIQUE: Portable upright AP view of the chest was obtained. COMPARISON: 10/26/2016. FINDINGS: Cardiomediastinal silhouette normal. Lungs and pleural spaces clear. Osseous structures normal. Upper abdomen normal. IMPRESSION: 1. No acute cardiopulmonary disease. Electronically signed by: Diogo Fatima M.D. 01/16/2017 7:20 AM Dictated Date/Time: 01/16/2017 7:19 AM
[2017-01-16 07:23] LABS: BASO % 0.3 %; BASO ABS # 0.02 K/uL (0-0.2); COMPLETE YES; EOS % 2.7 %; HEMATOCRIT 38.5 % (37-47); IG% 0.4 %; LYMPH % 30.7 %; LYMPH ABS # 2.18 K/uL (1.2-3.4); MEAN CELL VOLUME 91.7 fL (80-100); MEAN CORPUSCULAR HEMOGLOBIN 30.7 pg (25-34); MEAN CORPUSCULAR HGB CONC 33.5 g/dl (32-36); MEAN PLATELET VOLUME 11.6 fL (7.4-10.4); MONO % 7.6 %; NEUT % 58.3 %; PLATELET COUNT 166 K/uL (130-400); WHITE BLOOD COUNT 7.11 K/uL (4.8-10.8)
--- NOTE | 2017-01-16 07:26 | EMERGENCY ROOM VISIT NOTE ---
History Report prepared by Jose: Alyssa Zaldivar Under the Supervision of: Dr. Belen Giles M.D. First contact with patient: 06:38 Chief Complaint: CHEST PAIN Stated Complaint: CHEST PAIN,LIGHTHEADED,LIGHT FLASHES Nursing Triage Summary: pt reports mid chest pain that radiates to L side X several days and my job requires heavy lifting and i just could not go to work and not know what the problem is . 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 and an anuerysm in July in chest without repair History of Present Illness The patient is a 41 year old female who presents to the Emergency Room with complaints of constant left-sided chest pain for the past few days. The patient has chronic left shoulder pain. She sees a health informatics specialist for this pain. She states that over the past 4 days her left shoulder pain is worse than usual. She reports chest pain and rib pain that is worse with coughing and deep inspiration. She describes a feeling of tightness in her chest, and rates her pain as a 5/10 in severity. Four days ago the patient's PCP switched her anxiety medications. They switched her to 0.5mg of clonazepam and started her on Lexapro. She thinks that this is causing her anxiety to worsen. Yesterday she felt off-balance and like she was "side-stepping." She denies feeling dizzy or lightheaded. She had tingling in her fingers on her left hand. The patient denies any facial numbness or facial droop. She denies any trouble with her speech. The patient has been eating and drinking normally. 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 The patient is on Plavix and aspirin. Source of History: patient Onset: a few days ago Position: chest (left) Symptom Intensity: 5/10 Quality: other (tightness) Timing: constant Modifying Factors (Worsening): breathing, other (coughing) Associated Symptoms: No numbness Review of Systems See HPI for pertinent positives & negatives. A total of 10 systems reviewed and were otherwise negative. Past Medical & Surgical Medical Problems: (1) Anxiety (2) Chest pain (3) Paresthesia of left arm (4) Unilateral facial paresis Surgical Problems: (1) S/P cholecystectomy Family History Gallbladder disease Heart disease Social History Smoking Status: Never Smoker Alcohol Use: occasionally Drug Use: none Marital Status: Housing Status: lives with family Occupation Status: employed Current/Historical Medications Scheduled Aspirin (Aspirin Ec), 81 MG PO DAILY Clonazepam (Klonopin), 0.5 MG PO BID Clopidogrel (Plavix), 75 MG PO DAILY Coenzyme Q10 (Ubidecarenone) (Co Q-10), 1 CAP PO BID Escitalopram Oxalate (Lexapro), 5 MG PO DAILY Fish Oil ([place]-3), 1 CAP PO DAILY Losartan Potassium (Cozaar), 50 MG PO DAILY Allergies Coded Allergies: No Known Allergies (Unverified , 01/16/17) Physical Exam Vital Signs Date Time Temp Pulse Resp B/P (MAP) Pulse Ox O2 Delivery O2 Flow Rate FiO2 01/16/17 08:24 61 18 116/67 98 Room Air 01/16/17 06:21 72 01/16/17 06:15 98 Room Air 01/16/17 06:05 36.7 77 18 146/92 97 Room Air Physical Exam Vital signs reviewed. General: Well-appearing 41 year old female, in no significant distress. HEENT: No scleral icterus, PERRLA, neck supple. Atraumatic. Cardiovascular: Regular rate and rhythm, no extra sounds. Pulmonary: Clear to auscultation bilaterally, normal work of breathing. Abdomen: Soft, nontender, nondistended, positive bowel sounds. Musculoskeletal: Atraumatic, no peripheral edema. Neurologic: Patient awake alert and oriented x 3, full strength in all 4 extremities. Cranial nerves 2 through 12 grossly intact. Intact finger-to- nose. Skin: Warm, dry, no rash Medical Decision & Procedures ER Provider Diagnostic Interpretation: Radiology results as stated below per my review and radiologist interpretation: CT OF THE HEAD WITHOUT CONTRAST CLINICAL HISTORY: Left arm tingling. Balance difficulty. COMPARISON STUDY: MRI of the brain September 06, 2016. CT DOSE: 537.48 mGy.cm TECHNIQUE: Helical axial images of the head were obtained without IV contrast. Automated exposure control was utilized for the study. A dose lowering technique was utilized adhering to the principles of ALARA. FINDINGS: No acute intracranial hemorrhage, midline shift or mass effect is present. Ventricular system is normal. Basilar cisterns are patent. No extra-axial collections are present. [place]-white differentiation is maintained. There are no CT findings to suggest acute dural sinus thrombosis or acute territorial infarct. There are no significant calvarial abnormalities. Visualized portions of the sinuses and mastoid air cells are clear. IMPRESSION: No acute intracranial findings. Electronically signed by: Hima Bui M.D. 01/16/2017 7:56 AM Dictated Date/Time: 01/16/2017 7:54 AM CHEST ONE VIEW PORTABLE CLINICAL HISTORY: 41 years-old Female presenting with chest pain, pleuritic. TECHNIQUE: Portable upright AP view of the chest was obtained. COMPARISON: 10/26/2016. FINDINGS: Cardiomediastinal silhouette normal. Lungs and pleural spaces clear. Osseous structures normal. Upper abdomen normal. IMPRESSION: 1. No acute cardiopulmonary disease. Electronically signed by: Diogo Fatima M.D. 01/16/2017 7:20 AM Dictated Date/Time: 01/16/2017 7:19 AM Laboratory Results 01/16/17 06:30 Red Blood Count 4.20, Mean Corpuscular Volume 91.7, Mean Corpuscular Hemoglobin 30.7, Mean Corpuscular Hemoglobin Concent 33.5, Mean Platelet Volume 11.6, Neutrophils (%) (Auto) 58.3, Lymphocytes (%) (Auto) 30.7, Monocytes (%) (Auto) 7.6, Eosinophils (%) (Auto) 2.7, Basophils (%) (Auto) 0.3, Neutrophils # (Auto) 4.15, Lymphocytes # (Auto) 2.18, Monocytes # (Auto) 0.54, Eosinophils # (Auto) 0.19, Basophils # (Auto) 0.02 01/16/17 06:30 Test 01/16/17 06:30 White Blood Count 7.11 K/uL (4.8-10.8) Red Blood Count 4.20 M/uL (4.2-5.4) Hemoglobin 12.9 g/dL (12.0-16.0) Hematocrit 38.5 % (37-47) Mean Corpuscular Volume 91.7 fL (80-100) Mean Corpuscular Hemoglobin 30.7 pg (25-34) Mean Corpuscular Hemoglobin Concent 33.5 g/dl (32-36) Platelet Count 166 K/uL (130-400) Mean Platelet Volume 11.6 fL (7.4-10.4) Neutrophils (%) (Auto) 58.3 % Lymphocytes (%) (Auto) 30.7 % Monocytes (%) (Auto) 7.6 % Eosinophils (%) (Auto) 2.7 % Basophils (%) (Auto) 0.3 % Neutrophils # (Auto) 4.15 K/uL (1.4-6.5) Lymphocytes # (Auto) 2.18 K/uL (1.2-3.4) Monocytes # (Auto) 0.54 K/uL (0.11-0.59) Eosinophils # (Auto) 0.19 K/uL (0-0.5) Basophils # (Auto) 0.02 K/uL (0-0.2) RDW Standard Deviation 42.8 fL (36.4-46.3) RDW Coefficient of Variation 12.6 % (11.5-14.5) Immature Granulocyte % (Auto) 0.4 % Immature Granulocyte # (Auto) 0.03 K/uL (0.00-0.02) Anion Gap 6.0 mmol/L (3-11) Est Creatinine Clear Calc Drug Dose 100.4 ml/min Estimated GFR () 127.8 Estimated GFR (Non- 110.3 BUN/Creatinine Ratio 16.9 (10-20) Calcium Level 8.8 mg/dl (8.5-10.1) Total Bilirubin 0.2 mg/dl (0.2-1) Direct Bilirubin < 0.1 mg/dl (0-0.2) Aspartate Amino Transf (AST/SGOT) 19 U/L (15-37) Alanine Aminotransferase (ALT/SGPT) 22 U/L (12-78) Alkaline Phosphatase 61 U/L (45-117) Total Creatine Kinase 59 U/L (26-192) Creatine Kinase MB 1.5 ng/ml (0.5-3.6) Creatine Kinase MB Ratio 2.5 (0-3.0) Troponin I < 0.015 ng/ml (0-0.045) Total Protein 6.8 gm/dl (6.4-8.2) Albumin 3.6 gm/dl (3.4-5.0) Thyroid Stimulating Hormone (TSH) 1.580 uIu/ml (0.300-4.500) Laboratory results per my review. ECG Indication: chest pain Rate (beats per minute): 62 Rhythm: sinus with SA Findings: no acute ischemic change, no ectopy ED Course 0638: Past medical records reviewed. The patient was evaluated in room B2. A complete history and physical examination was performed. 0819: I reassessed the patient at this time. She is feeling better and resting comfortably. I discussed the results and treatment plan with the patient. I answered all pertaining questions that she had. She expressed understanding and verbalized agreement. The patient will be discharged home. Medical Decision Differential diagnoses includes acute coronary syndrome, pulmonary embolus, aortic dissection, musculoskeletal pain, pneumonia, pleural effusion, pneumothorax, gastritis, peptic ulcer disease, CVA, TIA, anxiety, medication reaction. This patient was evaluated and appeared to be in no significant distress. Physical examination is fairly unrevealing. The patient does have some discomfort with deep inspiration. Patient is neurologically intact. EKG reveals no evidence of acute ischemic change. Chest x-ray is clear. Laboratory work reveals a normal d-dimer and negative cardiac enzymes. CT scan of the head reveals no evidence of acute intracranial abnormality. The patient seems to have significant anxiety issues related to her previous coronary dissection. She recently started Lexapro and was switched from Xanax to Klonopin. She doesn't feel that the Klonopin is working as well as the Xanax did. She may also be feeling somewhat medication side effects related to initiation of the Lexapro. She was encouraged to continue both Lexapro and Klonopin. Some education regarding the Lexapro was given. I suspect the patient is 7 from a musculoskeletal chest pain. She was advised to use Tylenol as she is currently on Plavix. The patient will follow-up with her PCP this week and return to the ER for worsening of symptoms or any medical concerns. Medication Reconcilliation Current Medication List: was personally reviewed by me Blood Pressure Screening Patient's blood pressure: Elevated blood pressure Blood pressure disposition: Elevated BP felt to be situational Impression Primary Impression: Pleuritic chest pain Scribe Attestation The scribe's documentation has been prepared under my direction and personally reviewed by me in its entirety. I confirm that the note above accurately reflects all work, treatment, procedures, and medical decision making performed by me. Departure Information Dispostion Home / Self-Care Referrals Leonel Morgan M.D. (PCP) Forms Call Back Authorization, HOME CARE DOCUMENTATION FORM, IMPORTANT VISIT INFORMATION Patient Instructions My [facility] [address] Additional Instructions Diagnosis: Pleuritic chest pain Tylenol 650 mg every 6 hours as needed for pain. Follow-up with your physician this week for reevaluation. Return to the ER for worsening of symptoms or any medical concerns.
[2017-01-16 07:34] LABS: ALT/SGPT 22 U/L (12-78); BLOOD UREA NITROGEN 11 mg/dl (7-18); BUN/CREATININE RATIO 16.9 (10-20); CALCIUM 8.8 mg/dl (8.5-10.1); CARBON DIOXIDE 25 mmol/L (21-32); CHLORIDE 111 mmol/L (98-107); CREATININE 0.65 mg/dl (0.60-1.20); GLUCOSE 90 mg/dl (70-99); POTASSIUM 3.8 mmol/L (3.5-5.1); SODIUM 142 mmol/L (136-145)
[2017-01-16 07:44] LABS: ALKALINE PHOSPHATASE 61 U/L (45-117); AST/SGOT 19 U/L (15-37); CKMB/CK RATIO 2.5 (0-3.0)
--- NOTE | 2017-01-16 07:57 | DIAGNOSTIC IMAGING REPORT ---
CT OF THE HEAD WITHOUT CONTRAST CLINICAL HISTORY: Left arm tingling. Balance difficulty. COMPARISON STUDY: MRI of the brain September 06, 2016. CT DOSE: 537.48 mGy.cm TECHNIQUE: Helical axial images of the head were obtained without IV contrast. Automated exposure control was utilized for the study. A dose lowering technique was utilized adhering to the principles of ALARA. FINDINGS: No acute intracranial hemorrhage, midline shift or mass effect is present. Ventricular system is normal. Basilar cisterns are patent. No extra-axial collections are present. [place]-white differentiation is maintained. There are no CT findings to suggest acute dural sinus thrombosis or acute territorial infarct. There are no significant calvarial abnormalities. Visualized portions of the sinuses and mastoid air cells are clear. IMPRESSION: No acute intracranial findings. Electronically signed by: Hima Bui M.D. 01/16/2017 7:56 AM Dictated Date/Time: 01/16/2017 7:54 AM
[2017-01-16 08:24] VITALS: BP 116/67; PULSE 61; O2SAT 98
== END 2017-01-16 08:31 | disposition home or self-care (01) ==
LOC: C.EDB 06:03
DX: R07.89 Other chest pain (principal); M25.512 Pain in left shoulder; G89.29 Other chronic pain; R05 Cough; F41.9 Anxiety disorder, unspecified; I25.2 Old myocardial infarction; Z79.02 Long term (current) use of antithrombotics/antiplatelets; Z79.82 Long term (current) use of aspirin; Z79.899 Other long term (current) drug therapy; Z82.49 Family history of ischemic heart disease and other diseases of the circulatory system; Z83.79 Family history of other diseases of the digestive system

== ENCOUNTER → 2017-08-16 | Outpatient (CLI) | payer OTHER ==
[~2017-08-16] MED LIST changes: -ALPR-411 PO; +CLON0.5T3 PO; +COEN50CA2 PO; -CZR25 PO; +ESCI1TAB6 PO; +LOSA50TA54 PO; -METO25TA56 PO
--- NOTE | 2017-08-16 13:42 | DIAGNOSTIC IMAGING REPORT ---
NUCLEAR GASTRIC EMPTYING STUDY HISTORY: Gastroparesis. COMPARISON: Abdomen and pelvis CT 08/17/2016. TECHNIQUE: Following the oral administration of 1.1 mCi of technetium 99m sulfur colloid in egg sandwich and 8 ounces of water, static abdominal images are obtained anteriorly and posteriorly at 0 minutes, 1 hour, 2 hour, and 4 hour time intervals. Gastric emptying was calculated utilizing the geometric mean method. FINDINGS: There is approximately 86% activity remaining at the 1 hour time interval (normal is less than 90%), 71% remaining at the 2 hour time interval (normal is less than 60%), and 34% activity remaining at the 4 hour time interval (normal is less than 10%). IMPRESSION: Delayed gastric emptying as described above. Electronically signed by: Alejandro Blackwood M.D. 08/16/2017 1:41 PM Dictated Date/Time: 08/16/2017 1:40 PM
== END | disposition home or self-care (01) ==
LOC: C.NUCL 08:48
PROVIDERS: ATTEND Physician Assistant
DX: K31.84 Gastroparesis (principal)

== ENCOUNTER → 2017-09-14 | Outpatient (CLI) | payer OTHER | END | disposition home or self-care (01) | LOC: C.LABBFT 14:54 | PROVIDERS: ATTEND Internal Medicine | DX: R63.5 Abnormal weight gain (principal) ==